=== PATIENT | female | born 1945 | race Caucasian/White ===

== ENCOUNTER 2017-10-06 19:12 | Emergency (ER) | payer OTHER ==
[~2017-10-06] VITALS: Ht 152.4 cm; Wt 72.6 kg
[~2017-10-06 19:12] MED LIST: ACYC400 PO; AMOCLA875 PO; ASCO500 PO; ASPI81CH PO; ASPI81EC PO; CARV6.25 PO; CHLO25B PO; CHLO500T PO; CHLOROTHALIDONE; CHOL10002 PO; CIPR500 PO; CLON.5 PO; CYCL10 PO; Coreg25 MG PO; DOCU100 PO; Diflucan100 MG PO; Diflucan150 MG PO; ERGO400 PO; FERR325 PO; FLUC100 PO; FLUC150A PO; FURO20 PO; HYDACE5 PO; HYDACE5325 PO; HYDHCL25 PO; IBUP800 PO; INSDET100 SC; INSULANPEN SC; IRON SULFATE; K-Dur20 MEQ PO; LOSA25; MAGCHL64ER PO; METF500 PO; METF850 PO; Macrobid 100 M100 MG PO; NAPR250 PO; NEUPRO; NYST100TC TOP; NYST100TO TOP; OMEP20ER; OMEP20ER PO; Omeprazole20 M1 PO; POTCHL10ER PO; POTCHL20ER PO; POTCIT5 PO; PRED10 PO; PRED20 PO; Prilosec Otc20 MG PO; RXCLIN PO; RXHYD5325 PO; RXHYDACE PO; RXSULTRIDS PO; SKIEMOTC TOP; SULTRIDS PO; TRAM50 PO; TRIHYD; TRIHYD PO; TRIHYD253A PO; VITAMIN D2000 UNIT PO; WARF3 PO; XARELTO15 MG PO; Zofran4 MG PO; [UNRECOGNIZED DRUG - CODE] PO; [UNRECOGNIZED DRUG - OTHER] VAG
[2017-10-06 19:52] LABS: BASOPHILS ABSOLUTE AUTO 0.03 K/mm3 (0.00-0.23); BASOPHILS PERCENT AUTO 0 % (0-2); EOSINOPHILS ABSOLUTE AUTO 0.36 K/mm3 (0.00-0.68); EOSINOPHILS PERCENT AUTO 4 % (0-6); Hematocrit 28.5 % (33.0-51.0); Hemoglobin 8.2 g/dL (11.5-16.0); IMMATURE GRAN ABSOLUTE AUTO 0.04 K/mm3 (0.00-0.10); IMMATURE GRAN PERCENT AUTO 0 % (0-1); LYMPHOCYTES PERCENT AUTO 13 % (21-46); MONOCYTES ABSOLUTE AUTO 0.84 K/mm3 (0.16-1.47); MONOCYTES PERCENT AUTO 9 % (4-13); Mean Corpuscular HGB 22.5 pg (26.0-34.0); Mean Corpuscular HGB Conc 28.8 g/dL (31.5-36.5); Mean Corpuscular Volume 78 fL (80-100); Mean Platelet Volume 9.2 fL (9.1-12.4); NEUTROPHILS ABSOLUTE AUTO 6.66 K/mm3 (1.96-9.15); NEUTROPHILS PERCENT AUTO 73 % (41-73); Platelet Count 450 K/mm3 (150-400); RDW Coefficient Variation 17.5 % (11.7-14.2); RDW Standard Deviation 50.2 fL (35.1-46.3); Red Blood Cell Count 3.64 M/mm3 (3.80-5.20); White Blood Cell Count 9.13 K/mm3 (4.00-11.30)
[2017-10-06 20:02] LABS: International Normalized Ratio 1.51; Prothrombin Time Results 15.9 Sec (9.7-11.5)
[2017-10-06 20:08] LABS: Alanine Aminotransfer (ALT/SGP 14 U/L (12-78); Albumin, Blood 3.2 g/dL (3.4-5.0); Albumin/Globulin Ratio 0.8 (0.8-1.8); Alk Phos 125 U/L (50-136); Anion Gap 9 mmol/L (6-16); Aspartate Aminotrans (AST/SGOT 15 U/L (12-37); Bilirubin, Total 0.3 mg/dL (0.1-1.0); Blood Urea Nitrogen 25 mg/dL (8-24); Bun/Creatinine Ratio 17.1 (12.0-20.0); CO2, Blood 28 mmol/L (21-32); Calcium, Blood 8.5 mg/dL (8.5-10.1); Chloride, Blood 103 mmol/L (98-108); Creatinine, Blood 1.46 mg/dL (0.40-1.00); Globulin, Blood 4.1 g/dL (2.2-4.0); Glomerular Filtration Rate 37 (60-); Glucose, Blood 192 mg/dL (70-99); Potassium, Blood 3.5 mmol/L (3.5-5.5); Sodium, Blood 140 mmol/L (136-145); Total Protein, Blood 7.3 g/dL (6.4-8.2); Troponin I <0.015 ng/mL (0.000-0.040)
[2018-01-17] MEDS ORDERED: FLUC150A PO (14:05)
[2018-01-17] MEDS ORDERED: DILT120 PO (14:06)
[2018-01-17] MEDS ORDERED: ELIQUIS5 MG PO (14:06)
[2018-08-23] MEDS ORDERED: Azor 10-20 MG1 EACH (20:57)
== END 2017-10-06 22:52 | disposition home or self-care (01) ==
LOC: ER 19:12
PROVIDERS: Emergency Medicine
DX: I48.0 Paroxysmal atrial fibrillation (principal); E11.9 Type 2 diabetes mellitus without complications; I10 Essential (primary) hypertension; Z96.642 Presence of left artificial hip joint; Z90.49 Acquired absence of other specified parts of digestive tract; Z90.710 Acquired absence of both cervix and uterus; Z90.89 Acquired absence of other organs; Z88.5 Allergy status to narcotic agent; Z88.2 Allergy status to sulfonamides; Z91.011 Allergy to milk products; Z79.899 Other long term (current) drug therapy; Z79.4 Long term (current) use of insulin; Z79.01 Long term (current) use of anticoagulants
CPT/HCPCS: 36415; 71046; 80053; 83880; 84484; 85025; 85610; 93005; 93010; 96361; 96374; 96376; 99284; J7030

== ENCOUNTER 2017-10-19 13:38 | Emergency (ER) | payer OTHER ==
[~2017-10-19] VITALS: Ht 152.4 cm; Wt 68.0 kg
[2017-10-19] MEDS ORDERED: CARV25 PO (14:19)
[2017-10-19] MEDS ORDERED: CALC.25 PO (14:20)
[2017-10-19] MEDS ORDERED: WARF3 PO (14:23)
[2017-10-19] MEDS ORDERED: WARF2 PO (14:24)
[2017-10-19 14:27] LABS: BASOPHILS PERCENT AUTO 0 % (0-2); EOSINOPHILS ABSOLUTE AUTO 0.04 K/mm3 (0.00-0.68); EOSINOPHILS PERCENT AUTO 1 % (0-6); Hematocrit 30.1 % (33.0-51.0); Hemoglobin 8.4 g/dL (11.5-16.0); IMMATURE GRAN ABSOLUTE AUTO 0.03 K/mm3 (0.00-0.10); IMMATURE GRAN PERCENT AUTO 1 % (0-1); LYMPHOCYTES ABSOLUTE AUTO 0.87 K/mm3 (0.84-5.20); LYMPHOCYTES PERCENT AUTO 14 % (21-46); MONOCYTES PERCENT AUTO 5 % (4-13); Mean Corpuscular HGB 21.3 pg (26.0-34.0); Mean Corpuscular HGB Conc 27.9 g/dL (31.5-36.5); Mean Corpuscular Volume 76 fL (80-100); Mean Platelet Volume 9.3 fL (9.1-12.4); NEUTROPHILS ABSOLUTE AUTO 5.01 K/mm3 (1.96-9.15); NEUTROPHILS PERCENT AUTO 80 % (41-73); Platelet Count 417 K/mm3 (150-400); RDW Coefficient Variation 17.8 % (11.7-14.2); RDW Standard Deviation 49.1 fL (35.1-46.3); Red Blood Cell Count 3.94 M/mm3 (3.80-5.20); White Blood Cell Count 6.25 K/mm3 (4.00-11.30)
[2017-10-19 14:45] LABS: Prothrombin Time Results 101.4 Sec (9.7-11.5); Troponin I <0.015 ng/mL (0.000-0.040)
[2017-10-19 14:47] LABS: Alanine Aminotransfer (ALT/SGP 22 U/L (12-78); Albumin, Blood 3.3 g/dL (3.4-5.0); Albumin/Globulin Ratio 0.8 (0.8-1.8); Alk Phos 96 U/L (50-136); Anion Gap 11 mmol/L (6-16); Aspartate Aminotrans (AST/SGOT 30 U/L (12-37); Bilirubin, Total 0.4 mg/dL (0.1-1.0); Blood Urea Nitrogen 21 mg/dL (8-24); CO2, Blood 25 mmol/L (21-32); Calcium, Blood 8.7 mg/dL (8.5-10.1); Chloride, Blood 106 mmol/L (98-108); Creatinine, Blood 1.62 mg/dL (0.40-1.00); Globulin, Blood 4.4 g/dL (2.2-4.0); Glomerular Filtration Rate 33 (60-); Glucose, Blood 138 mg/dL (70-99); Sodium, Blood 142 mmol/L (136-145); Total Protein, Blood 7.7 g/dL (6.4-8.2)
[2017-10-19 14:48] LABS: International Normalized Ratio 9.11
[2017-10-19 14:55] LABS: Influenza A Negative (NEGATIVE); Influenza B Negative (NEGATIVE)
[2017-10-19 16:05] LABS: Source, Urine Clean Catch
[2017-10-19 16:08] LABS: Appearance, Urine Clear (Clear); Bilirubin, Urine Neg (Neg); Blood, Urine 1+ (Neg); Color, Urine Yellow (P-Yellow); Glucose Qualitative, Urine Neg (Neg); Ketones, Urine Neg (Neg); Leukocyte Esterase, Urine 3+ (Neg); Nitrite, Urine Neg (Neg); Protein, Urine 1+ (Neg); Urobilinogen, Urine NORM (Normal)
[2017-10-19 16:18] LABS: Bacteria Rare /hpf; Red Blood Cells, Urine Not Seen /hpf (0-2); Squamous Epithelial Cells Rare /hpf (Few); White Blood Cells, Urine 0-2 /hpf (0-5)
[2018-01-17] MEDS ORDERED: FLUC150A PO (14:05)
[2018-01-17] MEDS ORDERED: DILT120 PO (14:06)
[2018-01-17] MEDS ORDERED: ELIQUIS5 MG PO (14:06)
[2018-08-23] MEDS ORDERED: Azor 10-20 MG1 EACH (20:57)
== END 2017-10-19 17:08 | disposition home or self-care (01) ==
LOC: ER 13:38
PROVIDERS: Physician Assistant
DX: R53.1 Weakness (principal); R79.1 Abnormal coagulation profile; E87.6 Hypokalemia; D64.9 Anemia, unspecified; Z88.5 Allergy status to narcotic agent; Z88.2 Allergy status to sulfonamides; Z91.011 Allergy to milk products; Z88.8 Allergy status to other drugs, medicaments and biological substances; Z79.899 Other long term (current) drug therapy; Z79.4 Long term (current) use of insulin; E11.9 Type 2 diabetes mellitus without complications; I10 Essential (primary) hypertension; I48.91 Unspecified atrial fibrillation; Z90.49 Acquired absence of other specified parts of digestive tract; Z90.710 Acquired absence of both cervix and uterus; Z87.891 Personal history of nicotine dependence
CPT/HCPCS: 36415; 71046; 73562-RT; 80053; 81001; 84484; 85025; 85610; 87077; 87086; 87186; 87804; 93005; 93010; 96360; 96361; 99284; J7030

== ENCOUNTER 2018-01-20 07:57 | Day surgery (SDC) | payer OTHER ==
[~2018-01-20] VITALS: Ht 152.4 cm; Wt 70.5 kg
[~2018-01-20 07:57] MED LIST changes: +CALC.25 PO; +CARV25 PO; +DILT120 PO; +ELIQUIS5 MG PO; +WARF2 PO
[2018-01-20] MEDS ORDERED: CARV25 PO (09:30)
[2018-01-20] MEDS ORDERED: Amiodarone HCl400 MG PO (09:41)
[2018-01-20] MEDS ORDERED: Amiodarone HCl200 MG PO (09:42)
== END 2018-01-20 23:22 | disposition home or self-care (01) ==
LOC: MHTC 07:57
PROC: 5A2204Z Restoration of Cardiac Rhythm, Single (ICD-10-PCS; principal; 2018-01-20)
DX: I48.1 Persistent atrial fibrillation (principal); R53.83 Other fatigue; R06.02 Shortness of breath; I48.0 Paroxysmal atrial fibrillation; E11.9 Type 2 diabetes mellitus without complications; E78.5 Hyperlipidemia, unspecified; I10 Essential (primary) hypertension; Z87.891 Personal history of nicotine dependence
CPT/HCPCS: 82947; 92960; 93005; 93010; 99152; 99153; J0282; J2250; J7120

== ENCOUNTER 2018-02-20 20:23 | Inpatient (IN) | payer OTHER ==
[~2018-02-20] VITALS: Ht 152.4 cm; Wt 74.0 kg
[~2018-02-20 20:23] MED LIST changes: +Amiodarone HCl200 MG PO; +Amiodarone HCl400 MG PO
[2018-02-20] MEDS ORDERED: INSULANPEN SC (21:01)
[2018-02-20 21:06] LABS: BASOPHILS ABSOLUTE AUTO 0.02 K/mm3 (0.00-0.23); BASOPHILS PERCENT AUTO 0 % (0-2); EOSINOPHILS ABSOLUTE AUTO 0.16 K/mm3 (0.00-0.68); EOSINOPHILS PERCENT AUTO 1 % (0-6); Hematocrit 25.6 % (33.0-51.0); Hemoglobin 7.2 g/dL (11.5-16.0); IMMATURE GRAN ABSOLUTE AUTO 0.09 K/mm3 (0.00-0.10); IMMATURE GRAN PERCENT AUTO 1 % (0-1); LYMPHOCYTES ABSOLUTE AUTO 0.59 K/mm3 (0.84-5.20); LYMPHOCYTES PERCENT AUTO 5 % (21-46); MONOCYTES ABSOLUTE AUTO 0.74 K/mm3 (0.16-1.47); MONOCYTES PERCENT AUTO 6 % (4-13); Mean Corpuscular HGB Conc 28.1 g/dL (31.5-36.5); Mean Corpuscular Volume 75 fL (80-100); Mean Platelet Volume 9.4 fL (9.1-12.4); NEUTROPHILS ABSOLUTE AUTO 11.37 K/mm3 (1.96-9.15); NEUTROPHILS PERCENT AUTO 88 % (41-73); Platelet Count 416 K/mm3 (150-400); RDW Coefficient Variation 16.6 % (11.7-14.2); RDW Standard Deviation 45.1 fL (35.1-46.3); Red Blood Cell Count 3.43 M/mm3 (3.80-5.20); White Blood Cell Count 12.97 K/mm3 (4.00-11.30)
[2018-02-20 21:23] LABS: Albumin, Blood 3.4 g/dL (3.4-5.0); Albumin/Globulin Ratio 0.8 (0.8-1.8); Bilirubin, Total 0.2 mg/dL (0.1-1.0); Bun/Creatinine Ratio 10.1 (12.0-20.0); Calcium, Blood 8.7 mg/dL (8.5-10.1); Creatinine, Blood 1.69 mg/dL (0.40-1.00); Globulin, Blood 4.5 g/dL (2.2-4.0); Potassium, Blood 4.3 mmol/L (3.5-5.5); Total Protein, Blood 7.9 g/dL (6.4-8.2)
[2018-02-21 01:40] LABS: Influenza A Negative (NEGATIVE); Influenza B Negative (NEGATIVE)
[2018-02-21 07:50] LABS: Hematocrit 25.7 % (33.0-51.0); Hemoglobin 7.5 g/dL (11.5-16.0); Mean Corpuscular HGB 22.3 pg (26.0-34.0); Mean Corpuscular HGB Conc 29.2 g/dL (31.5-36.5); Mean Corpuscular Volume 77 fL (80-100); Mean Platelet Volume 9.3 fL (9.1-12.4); Platelet Count 368 K/mm3 (150-400); RDW Standard Deviation 47.6 fL (35.1-46.3); Red Blood Cell Count 3.36 M/mm3 (3.80-5.20)
[2018-02-21 08:32] LABS: Albumin, Blood 2.8 g/dL (3.4-5.0); Albumin/Globulin Ratio 0.7 (0.8-1.8); Bilirubin, Total 0.8 mg/dL (0.1-1.0); Creatinine, Blood 1.63 mg/dL (0.40-1.00); Globulin, Blood 3.9 g/dL (2.2-4.0); Total Protein, Blood 6.7 g/dL (6.4-8.2)
[2018-02-21 21:34] LABS: Appearance, Urine Clear (Clear); Bilirubin, Urine Neg (Neg); Blood, Urine Neg (Neg); Color, Urine Yellow (P-Yellow); Glucose Qualitative, Urine Neg (Neg); Ketones, Urine Neg (Neg); Leukocyte Esterase, Urine Neg (Neg); Nitrite, Urine Neg (Neg); Protein, Urine 2+ (Neg); Urobilinogen, Urine NORM (Normal)
[2018-02-21 21:43] LABS: Bacteria Few /hpf; Red Blood Cells, Urine 0-2 /hpf (0-2); Squamous Epithelial Cells Rare /hpf (Few); White Blood Cells, Urine 0-2 /hpf (0-5)
[2018-02-22 05:40] LABS: BASOPHILS ABSOLUTE AUTO 0.04 K/mm3 (0.00-0.23); BASOPHILS PERCENT AUTO 0 % (0-2); EOSINOPHILS ABSOLUTE AUTO 0.47 K/mm3 (0.00-0.68); EOSINOPHILS PERCENT AUTO 4 % (0-6); Hemoglobin 6.7 g/dL (11.5-16.0); IMMATURE GRAN ABSOLUTE AUTO 0.07 K/mm3 (0.00-0.10); IMMATURE GRAN PERCENT AUTO 1 % (0-1); LYMPHOCYTES ABSOLUTE AUTO 1.26 K/mm3 (0.84-5.20); LYMPHOCYTES PERCENT AUTO 9 % (21-46); MONOCYTES ABSOLUTE AUTO 0.72 K/mm3 (0.16-1.47); MONOCYTES PERCENT AUTO 5 % (4-13); Mean Corpuscular HGB 21.3 pg (26.0-34.0); Mean Corpuscular HGB Conc 27.9 g/dL (31.5-36.5); Mean Corpuscular Volume 76 fL (80-100); Mean Platelet Volume 9.4 fL (9.1-12.4); NEUTROPHILS ABSOLUTE AUTO 10.82 K/mm3 (1.96-9.15); NEUTROPHILS PERCENT AUTO 81 % (41-73); Platelet Count 323 K/mm3 (150-400); RDW Coefficient Variation 17.3 % (11.7-14.2); RDW Standard Deviation 47.9 fL (35.1-46.3); Red Blood Cell Count 3.14 M/mm3 (3.80-5.20); White Blood Cell Count 13.38 K/mm3 (4.00-11.30)
[2018-02-22 06:17] LABS: Bun/Creatinine Ratio 10.7 (12.0-20.0); Calcium, Blood 8.1 mg/dL (8.5-10.1); Creatinine, Blood 1.78 mg/dL (0.40-1.00); Potassium, Blood 3.8 mmol/L (3.5-5.5)
[2018-02-22 06:19] LABS: Percent Saturation 3.7 % (15.0-50.0)
[2018-02-22 20:28] LABS: Hematocrit 31.5 % (33.0-51.0); Hemoglobin 9.6 g/dL (11.5-16.0)
[2018-02-23 05:56] LABS: BASOPHILS ABSOLUTE AUTO 0.03 K/mm3 (0.00-0.23); BASOPHILS PERCENT AUTO 0 % (0-2); EOSINOPHILS ABSOLUTE AUTO 0.23 K/mm3 (0.00-0.68); EOSINOPHILS PERCENT AUTO 2 % (0-6); Hematocrit 31.3 % (33.0-51.0); Hemoglobin 9.6 g/dL (11.5-16.0); IMMATURE GRAN ABSOLUTE AUTO 0.11 K/mm3 (0.00-0.10); IMMATURE GRAN PERCENT AUTO 1 % (0-1); LYMPHOCYTES ABSOLUTE AUTO 0.96 K/mm3 (0.84-5.20); LYMPHOCYTES PERCENT AUTO 9 % (21-46); MONOCYTES ABSOLUTE AUTO 0.69 K/mm3 (0.16-1.47); MONOCYTES PERCENT AUTO 6 % (4-13); Mean Corpuscular HGB Conc 30.7 g/dL (31.5-36.5); Mean Corpuscular Volume 78 fL (80-100); Mean Platelet Volume 9.6 fL (9.1-12.4); NEUTROPHILS PERCENT AUTO 82 % (41-73); Platelet Count 340 K/mm3 (150-400); RDW Coefficient Variation 18.2 % (11.7-14.2); RDW Standard Deviation 50.6 fL (35.1-46.3); White Blood Cell Count 11.02 K/mm3 (4.00-11.30)
[2018-02-23 06:16] LABS: Calcium, Blood 8.2 mg/dL (8.5-10.1); Creatinine, Blood 1.63 mg/dL (0.40-1.00); Potassium, Blood 3.8 mmol/L (3.5-5.5)
[2018-02-23] MEDS ORDERED: ACET325 PO (13:31)
[2018-02-23] MEDS ORDERED: ROBITUSSIN COU237 ML PO (13:33)
[2018-02-23] MEDS ORDERED: DOCU100 PO (13:34)
[2018-02-23] MEDS ORDERED: ACIDOPHILUS LA1 EACH PO (13:35)
== END 2018-02-23 14:02 | disposition home or self-care (01) | DRG 871 ==
LOC: ER 20:23 → MEDS 22:26 → ENPENDDIS 02-23 13:02 → MEDS 02-23 14:02
PROVIDERS: Emergency Medicine; Internal Medicine
PROC: 30233N1 Transfusion of Nonautologous Red Blood Cells into Peripheral Vein, Percutaneous Approach (ICD-10-PCS; principal; 2018-02-22)
DX: A41.9 Sepsis, unspecified organism (principal); J18.9 Pneumonia, unspecified organism; G93.40 Encephalopathy, unspecified; J44.1 Chronic obstructive pulmonary disease with (acute) exacerbation; I12.9 Hypertensive chronic kidney disease with stage 1 through stage 4 chronic kidney disease, or unspecified chronic kidney disease; E11.22 Type 2 diabetes mellitus with diabetic chronic kidney disease; N18.3 Chronic kidney disease, stage 3 (moderate); D63.1 Anemia in chronic kidney disease; I48.91 Unspecified atrial fibrillation; D50.8 Other iron deficiency anemias
CPT/HCPCS: 36415; 36430; 71046; 80048; 80053; 81001; 82728; 82947; 83540; 83550; 83605; 85014; 85018; 85025; 85027; 86850; 86900; 86901; 86923; 87493; 87804; 96365; 96368; 96375; 99285; J0456; J0696; J1650; J1815; J2405; J3370; J7030; J7050; P9016

== ENCOUNTER → 2019-04-29 | Outpatient (CLI) | payer OTHER ==
[~2019-04-29] MED LIST changes: +ACET325 PO; +ACIDOPHILUS LA1 EACH PO; +AMLO5 PO; +Acetaminophen325 M1 PO; +Azor 10-20 MG1 EACH PO; +LEVSOD50 PO; +Pepcid20 MG PO; +ROBITUSSIN COU237 ML PO; -VITAMIN D2000 UNIT PO; +VITAMIN D22000 UNIT PO
== END | disposition home or self-care (01) ==
LOC: LAB SHORT 18:19 → LAB EV 18:19
DX: L03.011 Cellulitis of right finger (principal)
CPT/HCPCS: 87070; 87205

== ENCOUNTER 2019-07-12 15:30 | Emergency (ER) | payer OTHER ==
[~2019-07-12] VITALS: Ht 152.4 cm; Wt 72.6 kg
[~2019-07-12 15:30] MED LIST changes: -LEVSOD50 PO; -Pepcid20 MG PO
[2019-07-12] MEDS ORDERED: LEVSOD50 PO (15:53)
[2019-07-12 16:03] LABS: BASOPHILS ABSOLUTE AUTO 0.04 K/mm3 (0.00-0.23); BASOPHILS PERCENT AUTO 0 % (0-2); EOSINOPHILS ABSOLUTE AUTO 0.36 K/mm3 (0.00-0.68); EOSINOPHILS PERCENT AUTO 4 % (0-6); Hematocrit 37.8 % (33.0-51.0); Hemoglobin 11.4 g/dL (11.5-16.0); IMMATURE GRAN ABSOLUTE AUTO 0.04 K/mm3 (0.00-0.10); IMMATURE GRAN PERCENT AUTO 0 % (0-1); LYMPHOCYTES ABSOLUTE AUTO 1.98 K/mm3 (0.84-5.20); LYMPHOCYTES PERCENT AUTO 20 % (21-46); MONOCYTES ABSOLUTE AUTO 0.91 K/mm3 (0.16-1.47); MONOCYTES PERCENT AUTO 9 % (4-13); Mean Corpuscular HGB 26.9 pg (26.0-34.0); Mean Corpuscular HGB Conc 30.2 g/dL (31.5-36.5); Mean Corpuscular Volume 89 fL (80-100); NEUTROPHILS ABSOLUTE AUTO 6.81 K/mm3 (1.96-9.15); NEUTROPHILS PERCENT AUTO 67 % (41-73); Platelet Count 360 K/mm3 (150-400); RDW Coefficient Variation 15.2 % (11.7-14.2); RDW Standard Deviation 49.2 fL (35.1-46.3); Red Blood Cell Count 4.24 M/mm3 (3.80-5.20); White Blood Cell Count 10.14 K/mm3 (4.00-11.30)
[2019-07-12 16:23] LABS: Alanine Aminotransfer (ALT/SGP 16 U/L (12-78); Albumin, Blood 3.6 g/dL (3.4-5.0); Albumin/Globulin Ratio 0.8 (0.8-1.8); Alk Phos 122 U/L (50-136); Anion Gap 7 mmol/L (6-16); Aspartate Aminotrans (AST/SGOT 15 U/L (12-37); Bilirubin, Total 0.2 mg/dL (0.1-1.0); Blood Urea Nitrogen 13 mg/dL (8-24); CO2, Blood 27 mmol/L (21-32); Calcium, Blood 8.7 mg/dL (8.5-10.1); Chloride, Blood 108 mmol/L (98-108); Creatinine, Blood 1.62 mg/dL (0.40-1.00); Globulin, Blood 4.6 g/dL (2.2-4.0); Glomerular Filtration Rate 33 (60-); Glucose, Blood 162 mg/dL (70-99); Potassium, Blood 3.9 mmol/L (3.5-5.5); Sodium, Blood 142 mmol/L (136-145); Total Protein, Blood 8.2 g/dL (6.4-8.2); Troponin I <0.015 ng/mL (0.000-0.040)
[2019-07-12 17:17] LABS: Magnesium, Blood 2.3 mg/dL (1.6-2.4)
[2019-07-12 17:18] LABS: Thyroid Stimulating Hormone 6.44 uIU/mL (0.360-4.800)
[2019-07-12] MEDS ORDERED: Pepcid20 MG PO (19:41)
== END 2019-07-12 19:55 | disposition home or self-care (01) ==
LOC: ER 15:30
PROVIDERS: Emergency Medicine; Physician Assistant
DX: I48.0 Paroxysmal atrial fibrillation (principal); J40 Bronchitis, not specified as acute or chronic; E11.9 Type 2 diabetes mellitus without complications; I10 Essential (primary) hypertension; Z88.5 Allergy status to narcotic agent; Z88.2 Allergy status to sulfonamides; Z91.018 Allergy to other foods; Z88.8 Allergy status to other drugs, medicaments and biological substances; Z79.899 Other long term (current) drug therapy; Z79.4 Long term (current) use of insulin; Z79.01 Long term (current) use of anticoagulants
CPT/HCPCS: 36415; 71045; 80053; 83735; 84443; 84484; 85025; 93005; 93010; 96361; 96365; 96366; 96375; 99285-25; J2060; J7030

== ENCOUNTER → 2020-01-24 | Outpatient (CLI) | payer MEDICARE ==
[~2020-01-24] MED LIST changes: +LEVSOD50 PO; +Pepcid20 MG PO
[2020-01-25 10:10] LABS: Candida species (DNA Probe) Negative (NEGATIVE); G. vaginalis (DNA Probe) Negative (NEGATIVE); T. vaginalis (DNA Probe) Negative (NEGATIVE)
== END | disposition home or self-care (01) ==
LOC: LAB 09:43 → LAB SHORT 09:43
PROVIDERS: Family Medicine
DX: R30.0 Dysuria (principal); L29.8 Other pruritus
CPT/HCPCS: 87086; 87480; 87510; 87660

== ENCOUNTER 2020-02-18 13:29 | Inpatient (IN) | payer MEDICARE ==
[~2020-02-18] VITALS: Ht 152.4 cm; Wt 76.9 kg
[~2020-02-18 13:29] MED LIST changes: -ELIQUIS5 MG PO; -VITAMIN D22000 UNIT PO
[2020-02-18 14:34] LABS: BASOPHILS ABSOLUTE AUTO 0.04 K/mm3 (0.00-0.23); BASOPHILS PERCENT AUTO 0 % (0-2); EOSINOPHILS ABSOLUTE AUTO 0.28 K/mm3 (0.00-0.68); EOSINOPHILS PERCENT AUTO 3 % (0-6); Hematocrit 30.1 % (33.0-51.0); Hemoglobin 8.4 g/dL (11.5-16.0); IMMATURE GRAN ABSOLUTE AUTO 0.05 K/mm3 (0.00-0.10); IMMATURE GRAN PERCENT AUTO 1 % (0-1); LYMPHOCYTES ABSOLUTE AUTO 1.26 K/mm3 (0.84-5.20); LYMPHOCYTES PERCENT AUTO 12 % (21-46); MONOCYTES ABSOLUTE AUTO 0.81 K/mm3 (0.16-1.47); MONOCYTES PERCENT AUTO 8 % (4-13); Mean Corpuscular HGB 22.3 pg (26.0-34.0); Mean Corpuscular HGB Conc 27.9 g/dL (31.5-36.5); Mean Corpuscular Volume 80 fL (80-100); Mean Platelet Volume 9.3 fL (9.1-12.4); NEUTROPHILS ABSOLUTE AUTO 7.75 K/mm3 (1.96-9.15); NEUTROPHILS PERCENT AUTO 76 % (41-73); Platelet Count 438 K/mm3 (150-400); RDW Standard Deviation 51.7 fL (35.1-46.3); Red Blood Cell Count 3.77 M/mm3 (3.80-5.20); White Blood Cell Count 10.19 K/mm3 (4.00-11.30)
[2020-02-18 14:53] LABS: Alanine Aminotransfer (ALT/SGP 19 U/L (12-78); Albumin, Blood 3.1 g/dL (3.4-5.0); Albumin/Globulin Ratio 0.7 (0.8-1.8); Alk Phos 116 U/L (50-136); Anion Gap 7 mmol/L (6-16); Aspartate Aminotrans (AST/SGOT 20 U/L (12-37); Bilirubin, Total 0.2 mg/dL (0.1-1.0); Blood Urea Nitrogen 22 mg/dL (8-24); Bun/Creatinine Ratio 13.8 (12.0-20.0); CO2, Blood 23 mmol/L (21-32); Calcium, Blood 8.7 mg/dL (8.5-10.1); Chloride, Blood 111 mmol/L (98-108); Creatinine, Blood 1.59 mg/dL (0.40-1.00); Globulin, Blood 4.6 g/dL (2.2-4.0); Glomerular Filtration Rate 34 (60-); Glucose, Blood 125 mg/dL (70-99); Potassium, Blood 3.9 mmol/L (3.5-5.5); Sodium, Blood 141 mmol/L (136-145); Total Protein, Blood 7.7 g/dL (6.4-8.2); Troponin I <0.015 ng/mL (0.000-0.040)
[2020-02-18] MEDS ORDERED: DILT120 PO (16:01)
[2020-02-18] MEDS ORDERED: MELO7.5 PO ×2 (16:02→16:56)
[2020-02-18] MEDS ORDERED: ELIQUIS5 MG PO (16:06)
[2020-02-18] MEDS ORDERED: VITAMIN D-32000 UNIT PO (16:07)
[2020-02-18] MEDS ORDERED: BASAGLAR K100 UNIT/2 SC (16:09)
[2020-02-18] MEDS ORDERED: TORSE20 PO (16:56)
--- NOTE | 2020-02-18 19:17 | NUR ---
PCU DAYSHIFT SUMMARY/ADMIT PATIENT ARRIVED TO UNIT AMBULATED TO UNIT BED WITH STEADY GAIT. RESP E/U ON ROOM AIR. PATIENT REMAINED IN AFIB 110'S WTIH CARDIEZEM GTT RUNNING AT 5 MG/ML. PATIENT REPORTS ONGOING IMPROVED CHEST PAIN, STATING 01/07. NO CARDIAC CHANGES PER DATA ENTRY CLERK. NO WOUNDS NOTED. REPORTED TO NOC SHIFT ELSIE MART.
[2020-02-18 20:25] LABS: Hematocrit 26.3 % (33.0-51.0); Hemoglobin 7.3 g/dL (11.5-16.0)
--- NOTE | 2020-02-18 21:30 | NUR ---
HGB LEVELS NURSE PRACTIONER YAMILE UPDATE ON PATIENT'S HGB LEVELS. ORDERS RECEIVED.
[2020-02-19 01:01] LABS: Hematocrit 25.7 % (33.0-51.0); Hemoglobin 7.1 g/dL (11.5-16.0)
--- NOTE | 2020-02-19 04:52 | NUR ---
UPDATE PATIENT COMPLAINING OF RESTLESS LEGS. DR GALLEGOS NOTIFIED AND ORDERS RECEIVED. DR GALLEGOS GAVE THE OKAY FOR THE MEDICATION TO BE STARTED AT THIS TIME EVEN THOUGH IT WAS ORDERED FOR BEDTIME.
[2020-02-19 05:45] LABS: Hematocrit 27.2 % (33.0-51.0); Hemoglobin 7.5 g/dL (11.5-16.0); Mean Corpuscular HGB 21.9 pg (26.0-34.0); Mean Corpuscular HGB Conc 27.6 g/dL (31.5-36.5); Mean Corpuscular Volume 80 fL (80-100); Mean Platelet Volume 9.4 fL (9.1-12.4); Platelet Count 413 K/mm3 (150-400); RDW Coefficient Variation 17.9 % (11.7-14.2); RDW Standard Deviation 51.7 fL (35.1-46.3); Red Blood Cell Count 3.42 M/mm3 (3.80-5.20); White Blood Cell Count 11.18 K/mm3 (4.00-11.30)
[2020-02-19 06:07] LABS: Anion Gap 8 mmol/L (6-16); Blood Urea Nitrogen 21 mg/dL (8-24); Bun/Creatinine Ratio 12.9 (12.0-20.0); CO2, Blood 21 mmol/L (21-32); Calcium, Blood 8.3 mg/dL (8.5-10.1); Chloride, Blood 110 mmol/L (98-108); Creatinine, Blood 1.63 mg/dL (0.40-1.00); Glomerular Filtration Rate 33 (60-); Glucose, Blood 115 mg/dL (70-99); Potassium, Blood 3.8 mmol/L (3.5-5.5); Sodium, Blood 139 mmol/L (136-145)
[2020-02-19 06:09] LABS: Troponin I <0.015 ng/mL (0.000-0.040)
--- NOTE | 2020-02-19 07:24 | NUR ---
SHIFT SUMMARY PATIENT PLEASENT AND COOPERATIVE THROUGHOUT THE NIGHT. PATIENT NAPPED OCCATIONALLY BUT WAS AWAKE MOST OF THE NIGHT. PATIENT REPORTED SHE IS A NIGHT OWL AND DOESNT USUALLY FALL ASLEEP UNTIL ABOUT 6 AM. PATIENT REPORTED SLIGHT CHEST PRESSURE THROUGHOUT THE NIGHT BUT NEVER REQUIRED MEDICATION FOR IT. CARDIZEM GTT RUNNING AT 5 MG/HR. PATIENT'S RESTLESS LEGS HAVE SETTLED DOWN AND PATIENT APPEARS TO BE ASLEEP. VITAL SIGNS CHARTED. REPORT GIVEN TO MADELIN ZIMMERMAN.
--- NOTE | 2020-02-19 07:58 | NUR ---
ASSUMED CARE AT 0700, REPORT FROM ELSIE MART. SITTING IN HOW FOWLERS IN BED. A/A/OX4, DENIES CHEST PAIN OR SOB, CARDIZEM DRIP INFUSING AT 5ML/HR. HEART RATE 104 AT THIS TIME. PLAN OF CARE FOR DAY REVIEWED, WILL CONTINUE TO MONITOR.
[2020-02-19 09:37] LABS: Hematocrit 26.1 % (33.0-51.0); Hemoglobin 7.2 g/dL (11.5-16.0)
--- NOTE | 2020-02-19 14:04 | NUR ---
Spiritual care visit conducted. Patient tells me about her heart issues and her bleed. Patient tells me abbout her family and her mario. Patient also talked about the of her 3years ago and the grief that she lives with today. I listen empathically, normalize patient's experience and provide grief support, pastoral school counselor and prayer. Patient responds well and displays evidence of being comforted and encouraged. I will continue to remain available to patient and family.
[2020-02-19 15:15] LABS: Hematocrit 30.8 % (33.0-51.0); Hemoglobin 8.8 g/dL (11.5-16.0)
[2020-02-19 17:47] LABS: Hemoglobin 9.4 g/dL (11.5-16.0)
--- NOTE | 2020-02-19 17:47 | NUR ---
SHIFT SUMMARY: A/A/OX4 DURING SHIFT. GI CONSULT TODAY. 1 UNIT PRBC GIVEN PER ORDERS WITH POST INFUSION HG 8.8. DENIES BLODDY STOOL. CARDIZEM DRIP DC'D PER ORDERS DURING SHIFT. IV TO LEFT WRIST AND RIGH AC PATENT AND SALINE LOCKED. INDEPENDANT IN ROOM, VSS, WILL CONTINUE TO MONITOR UNTIL CHANGE OF SHIFT.
--- NOTE | 2020-02-19 19:25 | NUR ---
ASSUMED CARE OF PT, BEDSIDE REPORT RECEIVED. PT IS RESTING QUIETLY ON RIGHT SIDE IN BED AND WATCHING TV. SHE DENIES N/V, DENIES CP/PRESSURE, DENIES SOB/DYSPNEA, DENIES PAIN. SHE IS SPEAKING IN FULL SENTENCES, SATS ARE MAINTAINING ON ROOM AIR, NO VISIBLE INCREASED WORK OF BREATHING, LUNGS ARE CLEAR. HR IRREG, AFIB PER CASE PLANNER, PRESSURES ARE MAINTAINING, RATE IS CONTROLLED TO 90S, SKIN IS PWD WITH BRISK CAP REFILL MILD LOWER EXTREMITY EDEMA NON PITTING. NORMOACTIVE BOWEL TONES X 4, ABD SOFT, NO TENDERNESS WITH PALPATION. PT IS HOPEFUL FOR DC TO HOME TOMORROW.
--- NOTE | 2020-02-20 05:58 | NUR ---
Pt rests quietly throughout shift, has denied needs throughout noc, is up ind in room and tolerates well. Vitals have been stable throughout noc. No acute changes.
--- NOTE | 2020-02-20 07:24 | NUR ---
ASSUMED CARE: PT RESTING QUIETLY AT THIS TIME. NO ACUTE DISTRESS NOTED.
[2020-02-20 08:49] LABS: Hematocrit 33.3 % (33.0-51.0); Hemoglobin 9.6 g/dL (11.5-16.0)
--- NOTE | 2020-02-20 08:54 | NUR ---
PT'S DAUGHTER CALLED AND STATES CONCERN THAT PT HAS NOT BEEN RECIEVING HOME MEDS. REVIEWED MED LIST WITH DAUGHTER AND EXPLAINED ANTIOCOAGULANT HELD DUE TO POSSIBLE GI BLEED. [facility] STATES PT HAS NOT USED METOPROLOL IN YEARS. CALL TO DR GARRIDO. MESSAGE LEFT. AWAITING CALL BACK
--- NOTE | 2020-02-20 09:50 | NUR ---
DR GARRIDO RETURNED CALL. SENIOR DATA INTEGRATION DEVELOPER SPOKE WITH HIM AND RELAYED TO THIS RN TO STILL GIVE METOPROLOL AND HE WOULD REVIEW THE [facility]
[2020-02-20] MEDS ORDERED: METO25ER PO (12:50)
[2020-02-20] MEDS ORDERED: PANT20 PO (12:51)
--- NOTE | 2020-02-20 14:52 | NUR ---
DISCUSSED DC INSTRUCTIONS WITH PT AND REMOVED IVS WNL. PT DECLINED FURTHER QUESTIONS OR CONCERNS. ESCORTED OUT AMBULATORY BY GEODESIST.
== END 2020-02-20 14:37 | disposition home or self-care (01) | DRG 310 ==
LOC: ER 13:29 → PCU 16:07
PROVIDERS: Emergency Medicine; Nurse Practitioner Acute Care; ADMIT Internal Medicine
PROC: 30233N1 Transfusion of Nonautologous Red Blood Cells into Peripheral Vein, Percutaneous Approach (ICD-10-PCS; principal; 2020-02-19)
DX: I48.0 Paroxysmal atrial fibrillation (principal); Z79.4 Long term (current) use of insulin; E11.22 Type 2 diabetes mellitus with diabetic chronic kidney disease; E78.5 Hyperlipidemia, unspecified; E04.1 Nontoxic single thyroid nodule; I12.9 Hypertensive chronic kidney disease with stage 1 through stage 4 chronic kidney disease, or unspecified chronic kidney disease; K21.9 Gastro-esophageal reflux disease without esophagitis; Z87.891 Personal history of nicotine dependence; Z96.642 Presence of left artificial hip joint; N18.3 Chronic kidney disease, stage 3 (moderate); D64.9 Anemia, unspecified; D50.9 Iron deficiency anemia, unspecified
CPT/HCPCS: 36415; 71046; 80048; 80053; 82947; 83690; 83880; 84484; 85014; 85018; 85025; 85027; 86850; 86900; 86901; 86923; 93005; 93010; 93306; 96374; 96375; 96376; 99285-25; A9270-GY; C9113; J7120; P9016

== ENCOUNTER → 2020-04-28 | Outpatient (CLI) | payer MEDICARE ==
[~2020-04-28] MED LIST changes: +BASAGLAR K100 UNIT/2 SC; +ELIQUIS5 MG PO; +MELO7.5 PO; +METO25ER PO; +PANT20 PO; +TORSE20 PO; +VITAMIN D-32000 UNIT PO
[2020-04-28 19:54] LABS: Percent Saturation 19.1 % (15.0-50.0)
== END | disposition home or self-care (01) ==
LOC: LAB SHORT 17:09 → LAB 17:09
PROVIDERS: Internal Medicine Hematology & Oncology
DX: D51.9 Vitamin B12 deficiency anemia, unspecified (principal); R53.83 Other fatigue
CPT/HCPCS: 82607; 82728; 82746; 83540; 83550

== ENCOUNTER → 2020-08-30 | Outpatient (CLI) | payer MEDICARE ==
[~2020-08-30] MED LIST changes: +BASAGLAR K100 UNIT/1 SC; +Cranberry300 MG PO; +DILTIAZEM 24HR360 MG PO; +PANT40 PO; +THERA-D2000 UNIT PO
[2020-08-30 18:56] LABS: BASOPHILS ABSOLUTE AUTO 0.03 K/mm3 (0.00-0.23); BASOPHILS PERCENT AUTO 0 % (0-2); EOSINOPHILS PERCENT AUTO 4 % (0-6); Hematocrit 28.8 % (33.0-51.0); IMMATURE GRAN ABSOLUTE AUTO 0.05 K/mm3 (0.00-0.10); IMMATURE GRAN PERCENT AUTO 1 % (0-1); LYMPHOCYTES ABSOLUTE AUTO 1.43 K/mm3 (0.84-5.20); LYMPHOCYTES PERCENT AUTO 15 % (21-46); MONOCYTES ABSOLUTE AUTO 0.81 K/mm3 (0.16-1.47); MONOCYTES PERCENT AUTO 9 % (4-13); Mean Corpuscular HGB 24.5 pg (26.0-34.0); Mean Corpuscular HGB Conc 27.8 g/dL (31.5-36.5); Mean Corpuscular Volume 88 fL (80-100); Mean Platelet Volume 10.7 fL (9.1-12.4); NEUTROPHILS ABSOLUTE AUTO 6.55 K/mm3 (1.96-9.15); NEUTROPHILS PERCENT AUTO 71 % (41-73); Platelet Count 400 K/mm3 (150-400); RDW Coefficient Variation 18.8 % (11.7-14.2); RDW Standard Deviation 61.7 fL (35.1-46.3); Red Blood Cell Count 3.27 M/mm3 (3.80-5.20); White Blood Cell Count 9.27 K/mm3 (4.00-11.30)
== END | disposition home or self-care (01) ==
LOC: LAB 18:33 → LAB SHORT 18:33
PROVIDERS: Internal Medicine Hematology & Oncology
DX: D50.9 Iron deficiency anemia, unspecified (principal)
CPT/HCPCS: 85025

== ENCOUNTER 2020-11-05 22:08 | Inpatient (IN) | payer MEDICARE ==
[~2020-11-05] VITALS: Ht 152.4 cm; Wt 70.1 kg
[~2020-11-05 22:08] MED LIST changes: -BASAGLAR K100 UNIT/1 SC; -Cranberry300 MG PO; -DILTIAZEM 24HR360 MG PO; -PANT40 PO; -THERA-D2000 UNIT PO
[2020-11-05] MEDS ORDERED: DILTIAZEM 24HR360 MG PO (22:17)
[2020-11-05] MEDS ORDERED: THERA-D2000 UNIT PO (22:18)
[2020-11-05] MEDS ORDERED: BASAGLAR K100 UNIT/1 SC (22:18)
[2020-11-05] MEDS ORDERED: ELIQUIS5 MG PO (22:19)
[2020-11-05] MEDS ORDERED: POTCHL20ER PO (22:19)
[2020-11-05 22:28] LABS: BASOPHILS ABSOLUTE AUTO 0.04 K/mm3 (0.00-0.23); BASOPHILS PERCENT AUTO 0 % (0-2); EOSINOPHILS ABSOLUTE AUTO 0.34 K/mm3 (0.00-0.68); EOSINOPHILS PERCENT AUTO 3 % (0-6); Hematocrit 24.8 % (33.0-51.0); Hemoglobin 6.7 g/dL (11.5-16.0); IMMATURE GRAN ABSOLUTE AUTO 0.07 K/mm3 (0.00-0.10); IMMATURE GRAN PERCENT AUTO 1 % (0-1); LYMPHOCYTES ABSOLUTE AUTO 1.52 K/mm3 (0.84-5.20); LYMPHOCYTES PERCENT AUTO 13 % (21-46); MONOCYTES ABSOLUTE AUTO 1.04 K/mm3 (0.16-1.47); MONOCYTES PERCENT AUTO 9 % (4-13); Mean Corpuscular HGB 21.1 pg (26.0-34.0); Mean Corpuscular Volume 78 fL (80-100); Mean Platelet Volume 9.6 fL (9.1-12.4); NEUTROPHILS ABSOLUTE AUTO 8.76 K/mm3 (1.96-9.15); NEUTROPHILS PERCENT AUTO 75 % (41-73); Platelet Count 454 K/mm3 (150-400); RDW Coefficient Variation 17.1 % (11.7-14.2); RDW Standard Deviation 48.9 fL (35.1-46.3); Red Blood Cell Count 3.18 M/mm3 (3.80-5.20); White Blood Cell Count 11.77 K/mm3 (4.00-11.30)
[2020-11-05 22:47] LABS: Alanine Aminotransfer (ALT/SGP 10 U/L (12-78); Albumin, Blood 3.3 g/dL (3.4-5.0); Albumin/Globulin Ratio 0.8 (0.8-1.8); Alk Phos 136 U/L (50-136); Anion Gap 6 mmol/L (6-16); Aspartate Aminotrans (AST/SGOT 9 U/L (12-37); Bilirubin, Total 0.2 mg/dL (0.1-1.0); Blood Urea Nitrogen 18 mg/dL (8-24); Bun/Creatinine Ratio 12.2 (12.0-20.0); CO2, Blood 26 mmol/L (21-32); Calcium, Blood 8.4 mg/dL (8.5-10.1); Chloride, Blood 111 mmol/L (98-108); Creatinine, Blood 1.47 mg/dL (0.40-1.00); Glomerular Filtration Rate 37 (60-); Glucose, Blood 153 mg/dL (70-99); Potassium, Blood 4.4 mmol/L (3.5-5.5); Sodium, Blood 143 mmol/L (136-145); Total Protein, Blood 7.3 g/dL (6.4-8.2); Troponin I <0.015 ng/mL (0.000-0.040)
[2020-11-05] MEDS ORDERED: Cranberry300 MG PO (23:19)
[2020-11-05 23:59] LABS: Influenza A, PCR NEGATIVE (NEGATIVE); Influenza B, PCR NEGATIVE (NEGATIVE); Resp Syncytial Virus, PCR NEGATIVE (NEGATIVE); SARS-Cov-2 (COVID-19) PCR, MMC NEGATIVE (NEGATIVE)
[2020-11-06 00:34] LABS: Source, Urine Clean Catch
[2020-11-06 00:37] LABS: Bilirubin, Urine Neg (Neg); Blood, Urine 1+ (Neg); Glucose Qualitative, Urine Neg (Neg); Ketones, Urine Neg (Neg); Leukocyte Esterase, Urine 3+ (Neg); Nitrite, Urine Neg (Neg); Protein, Urine 3+ (Neg); Specific Gravity, Urine 1.005 (1.003-1.022); Urobilinogen, Urine NORM (Normal)
[2020-11-06 00:40] LABS: Appearance, Urine Clear (Clear); Color, Urine Yellow (P-Yellow)
[2020-11-06 00:43] LABS: Bacteria Many /hpf; Red Blood Cells, Urine 0-2 /hpf (0-2); Squamous Epithelial Cells Mod /hpf (Few)
[2020-11-06 00:46] LABS: Percent Saturation 6.8 % (15.0-50.0)
[2020-11-06 04:49] LABS: BASOPHILS ABSOLUTE AUTO 0.05 K/mm3 (0.00-0.23); BASOPHILS PERCENT AUTO 1 % (0-2); EOSINOPHILS ABSOLUTE AUTO 0.32 K/mm3 (0.00-0.68); EOSINOPHILS PERCENT AUTO 3 % (0-6); Hematocrit 25.4 % (33.0-51.0); Hemoglobin 7.2 g/dL (11.5-16.0); IMMATURE GRAN ABSOLUTE AUTO 0.05 K/mm3 (0.00-0.10); IMMATURE GRAN PERCENT AUTO 1 % (0-1); LYMPHOCYTES ABSOLUTE AUTO 1.62 K/mm3 (0.84-5.20); LYMPHOCYTES PERCENT AUTO 16 % (21-46); MONOCYTES ABSOLUTE AUTO 0.87 K/mm3 (0.16-1.47); MONOCYTES PERCENT AUTO 9 % (4-13); Mean Corpuscular HGB 22.2 pg (26.0-34.0); Mean Corpuscular HGB Conc 28.3 g/dL (31.5-36.5); Mean Corpuscular Volume 78 fL (80-100); Mean Platelet Volume 9.9 fL (9.1-12.4); NEUTROPHILS ABSOLUTE AUTO 7.33 K/mm3 (1.96-9.15); NEUTROPHILS PERCENT AUTO 72 % (41-73); Platelet Count 383 K/mm3 (150-400); RDW Coefficient Variation 17.1 % (11.7-14.2); RDW Standard Deviation 48.5 fL (35.1-46.3); Red Blood Cell Count 3.24 M/mm3 (3.80-5.20); White Blood Cell Count 10.24 K/mm3 (4.00-11.30)
--- NOTE | 2020-11-06 05:08 | NUR ---
PATIENT ARRIVED TO ROOM VIA STRETCHER AND WAS A SBA TO BED. PATIENT IS A&OX4. 02 SATS 97% ON RA. PATIENT DENIES ANY CP/PRESSURE. PATIENT REQUESTED TO KEEP PANTS ON AND DENIED HAVING ANY PRESSURE ULCERS OR SORES. 1 UNIT PRBC COMPLETED AND FLUSHING WITH NS UPON ARRIVAL. PATIENT NOW SLEEPING. VSS, NO ACUTE CHANGES. CALL LIGHT IN REACH.
[2020-11-06 05:10] LABS: Albumin, Blood 2.9 g/dL (3.4-5.0); Anion Gap 6 mmol/L (6-16); Blood Urea Nitrogen 17 mg/dL (8-24); Bun/Creatinine Ratio 12.3 (12.0-20.0); CO2, Blood 26 mmol/L (21-32); Calcium, Blood 8.3 mg/dL (8.5-10.1); Chloride, Blood 113 mmol/L (98-108); Creatinine, Blood 1.38 mg/dL (0.40-1.00); Glomerular Filtration Rate 40 (60-); Glucose, Blood 120 mg/dL (70-99); Phosphorus, Blood 2.8 mg/dL (2.5-4.9); Potassium, Blood 4.1 mmol/L (3.5-5.5); Sodium, Blood 145 mmol/L (136-145); Troponin I <0.015 ng/mL (0.000-0.040)
--- NOTE | 2020-11-06 10:59 | NUR ---
PT LEAVING PCU AT 1055. REPORT GIVEN TO TRE MED-BUNDLE WRAPPER. PT DENYING CHEST PAIN THIS SHIFT, TELE DC'D PER ORDER.
[2020-11-06 11:07] LABS: Hematocrit 26.7 % (33.0-51.0); Hemoglobin 7.6 g/dL (11.5-16.0)
--- NOTE | 2020-11-06 15:39 | NUR ---
PT ARRIVED TO ROOM AT 1130 VIA WHEEL CHAIR. PT IS INDEPENDENT IN ROOM AND DOING WELL. PT AOX4 AND COOPERATIVE OF CARE. CALL LIGHT IS WITHIN REACH WILL CONTINUE TO MONITOR.
--- NOTE | 2020-11-06 17:35 | NUR ---
RECIEVED PT AT 1600. PT HAS NOT RESPONDED TO ANY STIMULUS OR CARE. PT IS TURNED EVERY 2 HRS. RECTAL TUBE REMOVED AND INTACT. PT IS ON RA AND LOOKS TO BE COMFORTABLE AT THIS TIME. WILL CONTIUE TO MONITOR.
--- NOTE | 2020-11-06 17:42 | NUR ---
PT AOX4 AND PT IS RESTING COMFORTABLY IN HER BED. PT HAS BEEN UP TO RESTROOM AND DID WELL AMBULATING. PT DENIES PAIN AT THIS TIME. CALL LIGHT IS WITHIN REACH. WILL CONTINUE TO MONITOR.
--- NOTE | 2020-11-06 18:38 | NUR ---
PT HAD EPISODE OF OF SOB INCREASED RESPIRATION OF 28 AND PT STATED SHE FELT LIKE HER HEART WAS RACING. PT HAD VITALS RECHECKED AND DR KEITH WAS NOTIFIED. DR KEITH ORDERED TELEMONITOR AND A TROPONIN TO BE DRAWN. WILL CONTINUE TO MONITOR.
--- NOTE | 2020-11-06 18:55 | NUR ---
ASSUMED CARE RECEIVED REPORT FROM ELSIE TOLEDO. PT RESTING COMFORTABLY, IN NO ACUTE DISTRESS. DENIES CP/PRESSURE/SOB AT THIS TIME, RESPS E/U. DENIES NEEDS. CALL LIGHT, POSSESSIONS IN REACH, BED IN LOW POSITION. CONTINUE TO MONITOR.
--- NOTE | 2020-11-07 04:11 | NUR ---
THIS RN NOTIFIED BY [employer] THAT PT CONVERTED FROM NSR INTO AFIB AT APPROXIMATELY 0345. RATE WELL CONTROLLED, AVERAGING IN THE 70S-80S, OCCASIONALLY INCREASING TO THE 90'S. PT HAS HX AFIB, NO ACUTE DISTRESS NOTED.
[2020-11-07 04:59] LABS: BASOPHILS ABSOLUTE AUTO 0.06 K/mm3 (0.00-0.23); BASOPHILS PERCENT AUTO 1 % (0-2); EOSINOPHILS ABSOLUTE AUTO 0.48 K/mm3 (0.00-0.68); EOSINOPHILS PERCENT AUTO 4 % (0-6); Hematocrit 26.5 % (33.0-51.0); Hemoglobin 7.4 g/dL (11.5-16.0); IMMATURE GRAN ABSOLUTE AUTO 0.08 K/mm3 (0.00-0.10); IMMATURE GRAN PERCENT AUTO 1 % (0-1); LYMPHOCYTES ABSOLUTE AUTO 1.51 K/mm3 (0.84-5.20); LYMPHOCYTES PERCENT AUTO 14 % (21-46); MONOCYTES ABSOLUTE AUTO 0.98 K/mm3 (0.16-1.47); MONOCYTES PERCENT AUTO 9 % (4-13); Mean Corpuscular HGB 21.8 pg (26.0-34.0); Mean Corpuscular HGB Conc 27.9 g/dL (31.5-36.5); Mean Corpuscular Volume 78 fL (80-100); Mean Platelet Volume 10.2 fL (9.1-12.4); NEUTROPHILS ABSOLUTE AUTO 7.71 K/mm3 (1.96-9.15); NEUTROPHILS PERCENT AUTO 71 % (41-73); Platelet Count 394 K/mm3 (150-400); RDW Coefficient Variation 17.2 % (11.7-14.2); RDW Standard Deviation 48.3 fL (35.1-46.3); White Blood Cell Count 10.82 K/mm3 (4.00-11.30)
--- NOTE | 2020-11-07 06:39 | NUR ---
SHIFT SUMMARY PT RESTING COMFORTABLY, IN NO ACUTE DISTRESS. VS REVIEWED, WNL. PT REMAINS IN AFIB, RATE WELL CONTROLLED. DENIES CP, PRESSURE, SOB. SLEPT T/O MUCH OF THE NIGHT. AMBULATED TO BATHROOM WITH FWW. DENIES NEEDS AT THIS TIME. CALL LIGHT, POSSESSIONS IN REACH, BED IN LOW POSITION, CONTINUE TO MONITOR, REPORT OFF TO DAY RN.
[2020-11-07] MEDS ORDERED: PANT40 PO (11:19)
--- NOTE | 2020-11-07 14:50 | NUR ---
PATIENT D/C'D TO HOME WITH FAMILY. RX MEDICATIONS CALLED TO [facility]. DC INSTRUCTIONS AND EDUCATION DISCUSSED WITH PATIENT AND COPY PROVIDED. FOLLOW UP APPT MADE. PATIENT INSTRUCTED TO GET LABS ON SATURDAY. PATIENT DENIES ANY FURTHER QUESTIONS OR CONCERNS.
== END 2020-11-07 14:35 | disposition home or self-care (01) | DRG 812 ==
LOC: ER 22:08 → PCU 22:09 → MEDS 11-06 11:00 → ENPENDDIS 11-07 11:46 → EDPENDDIS 11-07 11:46 → MEDS 11-07 14:35
PROVIDERS: Emergency Medicine; Internal Medicine; ADMIT Family Medicine
PROC: 30233N1 Transfusion of Nonautologous Red Blood Cells into Peripheral Vein, Percutaneous Approach (ICD-10-PCS; principal; 2020-11-06)
DX: D50.9 Iron deficiency anemia, unspecified (principal); Z20.822 Contact with and (suspected) exposure to COVID-19; I12.9 Hypertensive chronic kidney disease with stage 1 through stage 4 chronic kidney disease, or unspecified chronic kidney disease; E11.22 Type 2 diabetes mellitus with diabetic chronic kidney disease; N18.30 Chronic kidney disease, stage 3 unspecified; I48.0 Paroxysmal atrial fibrillation; M19.90 Unspecified osteoarthritis, unspecified site; E04.1 Nontoxic single thyroid nodule; E78.5 Hyperlipidemia, unspecified; K21.9 Gastro-esophageal reflux disease without esophagitis; E87.6 Hypokalemia; F17.200 Nicotine dependence, unspecified, uncomplicated; D72.829 Elevated white blood cell count, unspecified; D47.3 Essential (hemorrhagic) thrombocythemia; Z86.711 Personal history of pulmonary embolism; Z87.442 Personal history of urinary calculi; Z79.899 Other long term (current) drug therapy; Z79.01 Long term (current) use of anticoagulants; Z79.4 Long term (current) use of insulin; Z88.2 Allergy status to sulfonamides; Z88.5 Allergy status to narcotic agent; Z88.8 Allergy status to other drugs, medicaments and biological substances
CPT/HCPCS: 0241U; 36415; 36430; 71045; 80053; 80069; 81001; 82272; 82607; 82728; 82746; 82947; 83540; 83550; 83880; 84145; 84484; 85014; 85018; 85025; 86850; 86900; 86901; 86923; 87086; 93005; 93010; 99285-25; A9270; G0378; J2916; J7030; P9016

== ENCOUNTER → 2020-12-10 | Outpatient (CLI) | payer MEDICARE ==
[~2020-12-10] MED LIST changes: +BASAGLAR K100 UNIT/1 SC; +Cranberry300 MG PO; +DILTIAZEM 24HR360 MG PO; +PANT40 PO; +THERA-D2000 UNIT PO
[2020-12-10 16:49] LABS: Protein, Urine Quantitative 136.9 mg/dL (0.0-11.9)
== END ==
LOC: OLS 12:58 → LAB SHORT 12:58
PROVIDERS: Internal Medicine Nephrology
DX: N18.30 Chronic kidney disease, stage 3 unspecified (principal); D63.1 Anemia in chronic kidney disease; N25.81 Secondary hyperparathyroidism of renal origin; E55.9 Vitamin D deficiency, unspecified; E78.00 Pure hypercholesterolemia, unspecified; D51.8 Other vitamin B12 deficiency anemias; D52.8 Other folate deficiency anemias; D50.9 Iron deficiency anemia, unspecified; R76.9 Abnormal immunological finding in serum, unspecified; R94.5 Abnormal results of liver function studies; R94.6 Abnormal results of thyroid function studies
CPT/HCPCS: 81050; 82043; 82570; 84156

== ENCOUNTER 2021-02-28 19:52 | Emergency (ER) | payer MEDICARE ==
[~2021-02-28] VITALS: Ht 152.4 cm; Wt 68.0 kg
[2021-02-28 20:28] LABS: BASOPHILS ABSOLUTE AUTO 0.03 K/mm3 (0.00-0.23); BASOPHILS PERCENT AUTO 0 % (0-2); EOSINOPHILS ABSOLUTE AUTO 0.23 K/mm3 (0.00-0.68); EOSINOPHILS PERCENT AUTO 2 % (0-6); Hematocrit 43.2 % (33.0-51.0); IMMATURE GRAN ABSOLUTE AUTO 0.04 K/mm3 (0.00-0.10); IMMATURE GRAN PERCENT AUTO 0 % (0-1); LYMPHOCYTES ABSOLUTE AUTO 1.44 K/mm3 (0.84-5.20); LYMPHOCYTES PERCENT AUTO 13 % (21-46); MONOCYTES ABSOLUTE AUTO 1.03 K/mm3 (0.16-1.47); MONOCYTES PERCENT AUTO 9 % (4-13); Mean Corpuscular HGB 24.2 pg (26.0-34.0); Mean Corpuscular HGB Conc 30.1 g/dL (31.5-36.5); Mean Corpuscular Volume 80 fL (80-100); Mean Platelet Volume 9.4 fL (9.1-12.4); NEUTROPHILS ABSOLUTE AUTO 8.16 K/mm3 (1.96-9.15); NEUTROPHILS PERCENT AUTO 75 % (41-73); Platelet Count 399 K/mm3 (150-400); RDW Coefficient Variation 17.4 % (11.7-14.2); RDW Standard Deviation 50.4 fL (35.1-46.3); Red Blood Cell Count 5.38 M/mm3 (3.80-5.20); White Blood Cell Count 10.93 K/mm3 (4.00-11.30)
[2021-02-28 20:47] LABS: Alanine Aminotransfer (ALT/SGP 15 U/L (12-78); Albumin, Blood 3.7 g/dL (3.4-5.0); Albumin/Globulin Ratio 0.8 (0.8-1.8); Alk Phos 139 U/L (50-136); Anion Gap 6 mmol/L (6-16); Aspartate Aminotrans (AST/SGOT 19 U/L (12-37); Bilirubin, Total 0.3 mg/dL (0.1-1.0); Blood Urea Nitrogen 18 mg/dL (8-24); Bun/Creatinine Ratio 12.4 (12.0-20.0); CO2, Blood 26 mmol/L (21-32); Calcium, Blood 9.2 mg/dL (8.5-10.1); Chloride, Blood 104 mmol/L (98-108); Creatinine, Blood 1.45 mg/dL (0.40-1.00); Globulin, Blood 4.9 g/dL (2.2-4.0); Glomerular Filtration Rate 37 (60-); Glucose, Blood 130 mg/dL (70-99); Potassium, Blood 4.2 mmol/L (3.5-5.5); Sodium, Blood 136 mmol/L (136-145); Total Protein, Blood 8.6 g/dL (6.4-8.2); Troponin I <0.015 ng/mL (0.000-0.040)
== END 2021-03-01 01:45 | disposition home or self-care (01) ==
LOC: ER 19:52
PROVIDERS: Physician Assistant
DX: R07.9 Chest pain, unspecified (principal); K44.9 Diaphragmatic hernia without obstruction or gangrene; Z79.899 Other long term (current) drug therapy
CPT/HCPCS: 36415; 71046; 71275; 80053; 83690; 84484; 85025; 93005; 93010; 96374; 99285-25; J2405; J3010; J7030; Q9967

== ENCOUNTER → 2021-04-20 | Outpatient (CLI) | payer MEDICARE | END | disposition home or self-care (01) | LOC: LAB 08:56 | DX: N89.8 Other specified noninflammatory disorders of vagina (principal); R35.0 Frequency of micturition ==

== ENCOUNTER 2021-06-24 09:25 | Inpatient (IN) | payer MEDICARE ==
[~2021-06-24] VITALS: Ht 152.4 cm; Wt 72.1 kg
[2021-06-24] MEDS ORDERED: POTA8 (09:46)
[2021-06-24] MEDS ORDERED: THERA-D2000 UNIT PO (09:46)
[2021-06-24] MEDS ORDERED: INSULANI SC (09:46)
[2021-06-24 10:31] LABS: BASOPHILS ABSOLUTE AUTO 0.03 K/mm3 (0.00-0.23); BASOPHILS PERCENT AUTO 1 % (0-2); EOSINOPHILS ABSOLUTE AUTO 0.06 K/mm3 (0.00-0.68); EOSINOPHILS PERCENT AUTO 1 % (0-6); Hematocrit 35.2 % (33.0-51.0); Hemoglobin 10.6 g/dL (11.5-16.0); IMMATURE GRAN ABSOLUTE AUTO 0.03 K/mm3 (0.00-0.10); IMMATURE GRAN PERCENT AUTO 1 % (0-1); LYMPHOCYTES ABSOLUTE AUTO 0.61 K/mm3 (0.84-5.20); LYMPHOCYTES PERCENT AUTO 11 % (21-46); MONOCYTES ABSOLUTE AUTO 0.92 K/mm3 (0.16-1.47); MONOCYTES PERCENT AUTO 16 % (4-13); Mean Corpuscular HGB Conc 30.1 g/dL (31.5-36.5); Mean Corpuscular Volume 87 fL (80-100); Mean Platelet Volume 10.1 fL (9.1-12.4); NEUTROPHILS ABSOLUTE AUTO 4.15 K/mm3 (1.96-9.15); NEUTROPHILS PERCENT AUTO 72 % (41-73); Platelet Count 264 K/mm3 (150-400); RDW Coefficient Variation 16.4 % (11.7-14.2); RDW Standard Deviation 51.9 fL (35.1-46.3); Red Blood Cell Count 4.07 M/mm3 (3.80-5.20)
[2021-06-24 10:54] LABS: Alanine Aminotransfer (ALT/SGP 12 U/L (12-78); Albumin, Blood 2.9 g/dL (3.4-5.0); Albumin/Globulin Ratio 0.7 (0.8-1.8); Alk Phos 98 U/L (50-136); Anion Gap 6 mmol/L (6-16); Aspartate Aminotrans (AST/SGOT 17 U/L (12-37); Bilirubin, Total 0.3 mg/dL (0.1-1.0); Blood Urea Nitrogen 15 mg/dL (8-24); Bun/Creatinine Ratio 9.9 (12.0-20.0); CO2, Blood 23 mmol/L (21-32); Calcium, Blood 8.5 mg/dL (8.5-10.1); Chloride, Blood 109 mmol/L (98-108); Creatinine, Blood 1.51 mg/dL (0.40-1.00); Globulin, Blood 4.2 g/dL (2.2-4.0); Glomerular Filtration Rate 33 (60-); Glucose, Blood 109 mg/dL (70-99); Potassium, Blood 3.8 mmol/L (3.5-5.5); Sodium, Blood 138 mmol/L (136-145); Total Protein, Blood 7.1 g/dL (6.4-8.2); Troponin I <0.015 ng/mL (0.000-0.040)
[2021-06-24 11:26] LABS: Source, Urine Catheter
[2021-06-24 11:34] LABS: Appearance, Urine Clear (Clear); Bilirubin, Urine Neg (Neg); Blood, Urine Neg (Neg); Color, Urine Yellow (P-Yellow); Glucose Qualitative, Urine Neg (Neg); Ketones, Urine Neg (Neg); Leukocyte Esterase, Urine Neg (Neg); Nitrite, Urine Neg (Neg); Protein, Urine 4+ (Neg); Urobilinogen, Urine NORM (Normal)
[2021-06-24 11:59] LABS: Bacteria Many /hpf; Red Blood Cells, Urine 0-2 /hpf (0-2); Squamous Epithelial Cells Mod /hpf (Few)
[2021-06-24 12:00] LABS: Amorphous Light (0-Heavy)
[2021-06-24 14:35] LABS: SARS-Cov-2 (COVID-19) PCR, MMC POSITIVE (NEGATIVE)
--- NOTE | 2021-06-24 15:04 | NUR ---
per order lasix 40 mg iv one time
--- NOTE | 2021-06-24 17:00 | NUR ---
PATIENT ARRIVES TO ROOM AROUND 1550. ALERT. ORIENTED.AT HOME HAS HAD; SOB, FEVER, WEAKNESS, DECREASED APPETITE AND COUGH. RECEIVED J[employer] COVID VACCINE IN JANUARY. HX D.M., HTN AND AFIB. IV X 2 ONE LEFT HAND AND THE OTHER RT FA BOTH PATENT. UNLABORED RESPIRATIONS. PLEASANT. ABLE TO MAKE NEEDS KNOWN. WCTM
--- NOTE | 2021-06-24 20:22 | NUR ---
attempted to call md regarding temp and heart rate. answering machine full and will attempt again.
--- NOTE | 2021-06-24 20:37 | NUR ---
spoke with dr. Hernandez regarding cardiac consult for patient.
[2021-06-25 04:59] LABS: BASOPHILS ABSOLUTE AUTO 0.02 K/mm3 (0.00-0.23); BASOPHILS PERCENT AUTO 1 % (0-2); EOSINOPHILS ABSOLUTE AUTO 0.01 K/mm3 (0.00-0.68); EOSINOPHILS PERCENT AUTO 0 % (0-6); Hematocrit 37.5 % (33.0-51.0); Hemoglobin 11.5 g/dL (11.5-16.0); IMMATURE GRAN ABSOLUTE AUTO 0.01 K/mm3 (0.00-0.10); IMMATURE GRAN PERCENT AUTO 0 % (0-1); LYMPHOCYTES ABSOLUTE AUTO 0.75 K/mm3 (0.84-5.20); LYMPHOCYTES PERCENT AUTO 18 % (21-46); MONOCYTES ABSOLUTE AUTO 0.65 K/mm3 (0.16-1.47); MONOCYTES PERCENT AUTO 15 % (4-13); Mean Corpuscular HGB 26.2 pg (26.0-34.0); Mean Corpuscular HGB Conc 30.7 g/dL (31.5-36.5); Mean Corpuscular Volume 85 fL (80-100); Mean Platelet Volume 10.5 fL (9.1-12.4); NEUTROPHILS ABSOLUTE AUTO 2.77 K/mm3 (1.96-9.15); NEUTROPHILS PERCENT AUTO 66 % (41-73); Platelet Count 251 K/mm3 (150-400); RDW Coefficient Variation 16.3 % (11.7-14.2); RDW Standard Deviation 50.9 fL (35.1-46.3); Red Blood Cell Count 4.39 M/mm3 (3.80-5.20); White Blood Cell Count 4.21 K/mm3 (4.00-11.30)
[2021-06-25 05:41] LABS: Albumin, Blood 2.6 g/dL (3.4-5.0); Albumin/Globulin Ratio 0.6 (0.8-1.8); Bilirubin, Total 0.2 mg/dL (0.1-1.0); Calcium, Blood 8.2 mg/dL (8.5-10.1); Creatinine, Blood 1.63 mg/dL (0.40-1.00); Globulin, Blood 4.6 g/dL (2.2-4.0); Potassium, Blood 3.2 mmol/L (3.5-5.5); Total Protein, Blood 7.2 g/dL (6.4-8.2)
--- NOTE | 2021-06-25 05:51 | NUR ---
PATIENT SUMMARY PATIENT IS ALERT AND ORIENTED X4. PATIENT PLACED ON CRIMINAL INVESTIGATOR D/T INCREASE HR 120-130s, A FIB. PATIENT C/O SHORTNESS OF BREATH WITH EXCERTION. PATIENT ABLE TO GET OUT OF BED TO BEDSIDE COMMONDE WITHOUT ASSISTANCE. MEDICATIONS GIVEN ORDERED AND CARES COMPLETED ORDERED ACCORDING TO NURSING JUDGEMENT. ALL UNFINNISHED CARES ENDORSED TO ONCOMING RN. ENCOURAGED PATIENT TO INCREASE ACTIVITY TOLERATED.
--- NOTE | 2021-06-25 06:55 | NUR ---
AGILE PROJECT MANAGER CALLED AN AGILE PROJECT MANAGER AT 0634 FOR C/O 10/10 STABBING CP AND VOMITTED X1. HR A FIB 120S-130. O2 PLACED FOR COMFORT, EKG COMPLETED- A FIB 120S-130S MD VIN CALLED MEDS GIVEN ORDERED. WILL CONTINUE TO MONITOR AND ENDORSE TO ONCOMING RN.
--- NOTE | 2021-06-25 14:46 | NUR ---
NOTIFIED PATIENT WITH COUGH AND 2 X DIARRHEA. TESSALON PEARLES 100 TID AND PROBIOTIC BID.
--- NOTE | 2021-06-25 16:12 | NUR ---
echocardiogram complete
--- NOTE | 2021-06-25 18:29 | NUR ---
ALERT. ORIENTED. PATIENT DENIED ANY MORE CHEST PAIN OR DISCOMFORT AFTER EPISODE EARLY THIS A.M. LOOKED AT EKG. WAS IN AND WILL CHECK CHART. UNLABORED RESPIRATIONS. TELE HAS BEEN TRENDING 90'S TO LOW 100'S AFIB PER GUN PROFILER. IV'S X 2. OFF OXYGEN MID SHIFT AND SATS MID 90'S. [facility]
[2021-06-26 05:03] LABS: Hematocrit 37.9 % (33.0-51.0); Hemoglobin 11.2 g/dL (11.5-16.0); Mean Corpuscular HGB 25.7 pg (26.0-34.0); Mean Corpuscular HGB Conc 29.6 g/dL (31.5-36.5); Mean Corpuscular Volume 87 fL (80-100); Platelet Count 240 K/mm3 (150-400); RDW Coefficient Variation 16.2 % (11.7-14.2); RDW Standard Deviation 52.3 fL (35.1-46.3); Red Blood Cell Count 4.36 M/mm3 (3.80-5.20); White Blood Cell Count 5.97 K/mm3 (4.00-11.30)
[2021-06-26 05:21] LABS: Albumin, Blood 2.5 g/dL (3.4-5.0); Albumin/Globulin Ratio 0.5 (0.8-1.8); Bilirubin, Total 0.1 mg/dL (0.1-1.0); Bun/Creatinine Ratio 13.4 (12.0-20.0); C-REACTIVE PROTEIN, EXT RANGE 1.1 mg/dL (0.000-0.300); Calcium, Blood 8.2 mg/dL (8.5-10.1); Creatinine, Blood 1.86 mg/dL (0.40-1.00); Globulin, Blood 4.6 g/dL (2.2-4.0); Potassium, Blood 3.4 mmol/L (3.5-5.5); Total Protein, Blood 7.1 g/dL (6.4-8.2)
--- NOTE | 2021-06-26 06:08 | NUR ---
DISTRIBUTION FIELD TECHNICIAN SUMMARY ADMITTED FOR AFIB WITH RVR AND COVID. PT IS DNR. PT HAD NO CHEST PAIN THIS SHIFT. PT DID COMPLAIN OF SOME DIZZINESS AND "FEELING UNWELL". CBG HAD DROPPED AROUND 50 POINTS IN AN HOUR AND A HALF. PT GIVEN MADDISON CRACKERS AND PEANUT BUTTER WITH IMPROVEMENT AND STABILIZATION OF CBG. PT REPORTS THIS HAPPENS AT HOME, DROPPING SUGAR INTO THE 60S. PT MEDICATED X1 FOR FEVER OF 100.8 WITH IMPROVEMENT TO 99.8. NO OTHER CONCERNS THIS SHIFT.
--- NOTE | 2021-06-26 13:10 | NUR ---
Patient is lying in bed and resting but easily awakens to the sound of her name. She talks about her medical issues and the toll they take on her emotional state. She tells me about her daughter and the great support she is but also how anxious she is about her mom's health and not being able to see her because of the restrictions on visitors. Patient speaks of her strong Episcopalian mario and that prayer is very meaningful to her especially in times like these. I normalize patient's experience, reinforce helpful attitudes and practices, and provide therapeutic listening and prayer. Patient responds well and displays eviedence of an elevated mood. I will continue to remain available to patient and family.
--- NOTE | 2021-06-26 18:42 | NUR ---
PT PLEASANT TODYA. DID HAVE EMESIS ONCE TODAY. NO NEW CONCERNS NOTED. DID STATES FEEL SOME BETTER TODAY. NO NEW CONERNS NOTED TODAY. BED IN LOW POSITION, CALL LITE IN REACH, CALLS APPROP
[2021-06-27 04:54] LABS: Hematocrit 35.4 % (33.0-51.0); Hemoglobin 10.7 g/dL (11.5-16.0); Mean Corpuscular HGB 25.7 pg (26.0-34.0); Mean Corpuscular HGB Conc 30.2 g/dL (31.5-36.5); Mean Corpuscular Volume 85 fL (80-100); Mean Platelet Volume 10.1 fL (9.1-12.4); Platelet Count 229 K/mm3 (150-400); RDW Coefficient Variation 16.3 % (11.7-14.2); RDW Standard Deviation 50.6 fL (35.1-46.3); Red Blood Cell Count 4.17 M/mm3 (3.80-5.20); White Blood Cell Count 4.58 K/mm3 (4.00-11.30)
[2021-06-27 05:11] LABS: Bun/Creatinine Ratio 11.3 (12.0-20.0); Calcium, Blood 8.1 mg/dL (8.5-10.1); Creatinine, Blood 1.94 mg/dL (0.40-1.00); Potassium, Blood 3.3 mmol/L (3.5-5.5)
--- NOTE | 2021-06-27 05:15 | NUR ---
SHIFT SUMMARY AOX4. SLIGHT TEMP THIS AM @100.6, WILL OFFER TYLENOL & RECHECK. REST OF VITALS STABLE. TELE AFIB HR 70'S. DENIES PAIN, N/V OR SOB. SPO2 >90% ON RA. HAS DRY COUGH. CALL LIGHT IN REACH & PT WANTING TO DC HOME TODAY. WCTM.
--- NOTE | 2021-06-27 18:22 | NUR ---
PT IS ALERT AND ORIENTED X 3. DENIES PAIN. T - 100.2 TODAY BUT DECREASED WITHOUT INTERVENTION. SHE DOES NOT APPEAR TO BE IN ACUTE DISTRESS. SHE HAD AN UNEVENTFUL DAY. OOB TO COMMODE WITH STAND BY ASSIST.
--- NOTE | 2021-06-28 05:12 | NUR ---
SHIFT SUMMARY AOX4. PT HAS NO COMPLAINTS. DENIES N/V, SOB OR PAIN. PO TEMP 102.7 LAST NIGHT, GAVE TYLENOL, TEMP DECREASED TO 98.7. THIS AM PT HAD ANOTHER TEMP 102.7 PO. GAVE TYLENOL & WILL RECHECK. REST OF VITALS STABLE. TELE AFIB HR 90'S. CALL LIGHT IN REACH. WCTM.
[2021-06-28 05:23] LABS: BASOPHILS ABSOLUTE AUTO 0.02 K/mm3 (0.00-0.23); BASOPHILS PERCENT AUTO 1 % (0-2); EOSINOPHILS ABSOLUTE AUTO 0.01 K/mm3 (0.00-0.68); EOSINOPHILS PERCENT AUTO 0 % (0-6); Hematocrit 38.4 % (33.0-51.0); Hemoglobin 11.7 g/dL (11.5-16.0); IMMATURE GRAN ABSOLUTE AUTO 0.01 K/mm3 (0.00-0.10); IMMATURE GRAN PERCENT AUTO 0 % (0-1); LYMPHOCYTES ABSOLUTE AUTO 0.74 K/mm3 (0.84-5.20); LYMPHOCYTES PERCENT AUTO 18 % (21-46); MONOCYTES ABSOLUTE AUTO 0.47 K/mm3 (0.16-1.47); MONOCYTES PERCENT AUTO 11 % (4-13); Mean Corpuscular HGB 25.9 pg (26.0-34.0); Mean Corpuscular HGB Conc 30.5 g/dL (31.5-36.5); Mean Corpuscular Volume 85 fL (80-100); Mean Platelet Volume 9.9 fL (9.1-12.4); NEUTROPHILS PERCENT AUTO 70 % (41-73); Platelet Count 205 K/mm3 (150-400); RDW Coefficient Variation 16.2 % (11.7-14.2); RDW Standard Deviation 50.9 fL (35.1-46.3); Red Blood Cell Count 4.51 M/mm3 (3.80-5.20); White Blood Cell Count 4.15 K/mm3 (4.00-11.30)
[2021-06-28 05:51] LABS: Albumin, Blood 2.4 g/dL (3.4-5.0); Anion Gap 6 mmol/L (6-16); Blood Urea Nitrogen 21 mg/dL (8-24); Bun/Creatinine Ratio 12.5 (12.0-20.0); CO2, Blood 27 mmol/L (21-32); Calcium, Blood 8.3 mg/dL (8.5-10.1); Chloride, Blood 106 mmol/L (98-108); Creatinine, Blood 1.68 mg/dL (0.40-1.00); Glomerular Filtration Rate 30 (60-); Glucose, Blood 90 mg/dL (70-99); Phosphorus, Blood 2.8 mg/dL (2.5-4.9); Potassium, Blood 3.3 mmol/L (3.5-5.5); Sodium, Blood 139 mmol/L (136-145)
--- NOTE | 2021-06-28 15:45 | NUR ---
PATIENT IS ALERT AND ORIENTED. PLEASANT AND COOPERATIVE WITH STAFF. CONTINUES ON IV ABX WITHOUT S/SX OF ADVERSE REACTIONS NOTED OR REPORTED. PATIENT CONTINUES TO RUN ELEVATED FEVERS OF UNKNOWN ORIGIN; FEVERS TREATED WITH APAP PER EMAR. PATIENT IN INDEPENDENT TO BSC AND AMBULATES USING CANE. PATIENT RESTING IN ROOM AT THIS TIME. CALL LIGHT WITHIN REACH.
--- NOTE | 2021-06-28 15:46 | NUR ---
Pt presented laying in bed awake. Pt shared she was Zoroastrian and at times would pick pulling machine operator her family Bible and just read. I offered to read to pt while in the room and pt agreed. Pt also recieved a [employer] devotional. Pt shared she lost her a few years ago. Pt shared she has a daughter and is from [place]. Pt said the Lord's prayer with me outloud in room. Pt recieved prayer. Pt was not talkative unless you ask questions. Pt appeared comforted by spiritual interventions.
[2021-06-29 05:23] LABS: Hematocrit 36.6 % (33.0-51.0); Mean Corpuscular HGB 25.5 pg (26.0-34.0); Mean Corpuscular HGB Conc 30.1 g/dL (31.5-36.5); Mean Corpuscular Volume 85 fL (80-100); Mean Platelet Volume 10.4 fL (9.1-12.4); Platelet Count 200 K/mm3 (150-400); RDW Coefficient Variation 15.9 % (11.7-14.2); RDW Standard Deviation 49.7 fL (35.1-46.3); Red Blood Cell Count 4.32 M/mm3 (3.80-5.20); White Blood Cell Count 4.17 K/mm3 (4.00-11.30)
[2021-06-29 05:46] LABS: Albumin, Blood 2.4 g/dL (3.4-5.0); Anion Gap 6 mmol/L (6-16); Blood Urea Nitrogen 23 mg/dL (8-24); Bun/Creatinine Ratio 14.5 (12.0-20.0); CO2, Blood 27 mmol/L (21-32); Calcium, Blood 8.4 mg/dL (8.5-10.1); Chloride, Blood 106 mmol/L (98-108); Creatinine, Blood 1.59 mg/dL (0.40-1.00); Glomerular Filtration Rate 32 (60-); Glucose, Blood 100 mg/dL (70-99); Phosphorus, Blood 2.1 mg/dL (2.5-4.9); Potassium, Blood 3.4 mmol/L (3.5-5.5); Sodium, Blood 139 mmol/L (136-145)
--- NOTE | 2021-06-29 07:31 | NUR ---
PATIENT ALERT AND ORIENTED. INDEPENDED WITH BEDSIDE COMODE. PATIENT HAD A FEVER OF 101.8, PATIENT GOT TYLENOL 650MG WITH EFFECT PENDING. PATIENT MJ PAIN OR SOB. PATIENT ABLE TO MAKE HER NEEDS NON. WILL CONTINUE TO MONITOR.
--- NOTE | 2021-06-29 18:45 | NUR ---
PATIENT WAS DISCHARGED TO HOME. UPON DISCHARGE, SHE WAS ALERT AND ORIENTED X 3. DENIES PAIN AND WAS NOT IN ACUTE DISTRESS. SHE HAD AN UNEVENTFUL DAY. SHE DID NOT HAVE QUESTIONS AFTER REVIEWING DISCHARGE INSTRUCTIONS.
== END 2021-06-29 13:46 | disposition home or self-care (01) | DRG 177 ==
LOC: ER 09:25 → MEDS 09:26
PROVIDERS: Internal Medicine; Physician Assistant; ADMIT Hospitalist
PROC: 8E0ZXY6 Isolation (ICD-10-PCS; principal; 2021-06-25)
DX: U07.1 COVID-19 (principal); I50.31 Acute diastolic (congestive) heart failure; J12.82 Pneumonia due to coronavirus disease 2019; N17.9 Acute kidney failure, unspecified; I13.0 Hypertensive heart and chronic kidney disease with heart failure and stage 1 through stage 4 chronic kidney disease, or unspecified chronic kidney disease; I48.20 Chronic atrial fibrillation, unspecified; J98.11 Atelectasis; Z66 Do not resuscitate; N18.30 Chronic kidney disease, stage 3 unspecified; Z87.891 Personal history of nicotine dependence; E11.22 Type 2 diabetes mellitus with diabetic chronic kidney disease; E87.6 Hypokalemia; Z68.30 Body mass index [BMI] 30.0-30.9, adult; E83.39 Other disorders of phosphorus metabolism; Z79.01 Long term (current) use of anticoagulants; Z96.642 Presence of left artificial hip joint; Z90.49 Acquired absence of other specified parts of digestive tract; Z90.710 Acquired absence of both cervix and uterus; Z88.5 Allergy status to narcotic agent; Z88.2 Allergy status to sulfonamides; Z88.8 Allergy status to other drugs, medicaments and biological substances; Z79.899 Other long term (current) drug therapy; Z79.4 Long term (current) use of insulin; E66.9 Obesity, unspecified; E88.09 Other disorders of plasma-protein metabolism, not elsewhere classified
CPT/HCPCS: 36415; 71045; 80048; 80053; 80069; 81001; 82947; 83036; 83605; 83880; 84145; 84443; 84484; 85025; 85027; 85379; 85651; 86140; 87040; 87070; 87086; 87205; 93005; 93010; 93306; 96361; 96365; 96366; 96367; 96375; 96376; 97110; 97116; 97162; 97166; 97530; 97535; 99285-25; A9270; G0378; J0456; J0696; J1940; J3010; J7030; J7050; J7060; U0004

== ENCOUNTER 2021-09-28 22:47 | Inpatient (IN) | payer MEDICARE ==
[~2021-09-28] VITALS: Ht 152.4 cm; Wt 73.9 kg
[~2021-09-28 22:47] MED LIST changes: +INSULANI SC; +POTA8
[2021-09-28] MEDS ORDERED: ELIQUIS5 M2 PO (23:00)
[2021-09-28 23:39] LABS: BASOPHILS ABSOLUTE AUTO 0.03 K/mm3 (0.00-0.23); BASOPHILS PERCENT AUTO 0 % (0-2); EOSINOPHILS ABSOLUTE AUTO 0.36 K/mm3 (0.00-0.68); EOSINOPHILS PERCENT AUTO 4 % (0-6); Hematocrit 19.2 % (33.0-51.0); IMMATURE GRAN ABSOLUTE AUTO 0.05 K/mm3 (0.00-0.10); IMMATURE GRAN PERCENT AUTO 1 % (0-1); LYMPHOCYTES ABSOLUTE AUTO 1.08 K/mm3 (0.84-5.20); LYMPHOCYTES PERCENT AUTO 12 % (21-46); MONOCYTES ABSOLUTE AUTO 0.98 K/mm3 (0.16-1.47); MONOCYTES PERCENT AUTO 11 % (4-13); Mean Corpuscular HGB 24.1 pg (26.0-34.0); Mean Corpuscular HGB Conc 28.6 g/dL (31.5-36.5); Mean Corpuscular Volume 84 fL (80-100); Mean Platelet Volume 10.4 fL (9.1-12.4); NEUTROPHILS ABSOLUTE AUTO 6.77 K/mm3 (1.96-9.15); NEUTROPHILS PERCENT AUTO 73 % (41-73); NRBC ABSOLUTE 0.02 K/mm3 (0.00-0.02); NRBC Auto 0.2 /100 WBC (0.0-0.2); Platelet Count 328 K/mm3 (150-400); RDW Coefficient Variation 18.3 % (11.7-14.2); RDW Standard Deviation 55.9 fL (35.1-46.3); Red Blood Cell Count 2.28 M/mm3 (3.80-5.20); White Blood Cell Count 9.27 K/mm3 (4.00-11.30)
[2021-09-28 23:43] LABS: Hemoglobin 5.5 g/dL (11.5-16.0)
[2021-09-29 00:01] LABS: Albumin, Blood 2.7 g/dL (3.4-5.0); Albumin/Globulin Ratio 0.7 (0.8-1.8); Bilirubin, Total 0.2 mg/dL (0.1-1.0); Calcium, Blood 8.4 mg/dL (8.5-10.1); Creatinine, Blood 1.5 mg/dL (0.40-1.00); Globulin, Blood 3.8 g/dL (2.2-4.0); Potassium, Blood 4.1 mmol/L (3.5-5.5); Total Protein, Blood 6.5 g/dL (6.4-8.2); Troponin I 0.1 ng/mL (0.000-0.040)
[2021-09-29 04:18] LABS: Influenza A, PCR NEGATIVE (NEGATIVE); Influenza B, PCR NEGATIVE (NEGATIVE); Resp Syncytial Virus, PCR NEGATIVE (NEGATIVE); SARS-Cov-2 (COVID-19) PCR, MMC NEGATIVE (NEGATIVE)
--- NOTE | 2021-09-29 04:27 | NUR ---
ASSUMPTION OF CARE PT ARRIVED TO ICU FROM ER, TRANSFERRED TO ICU BED VIA SLIDER. PT ALERT AND ORIENTED, DENIES CP, C/O SOB WITH EXERTION. COVID SWAB OBTAINED AND SENT TO LAB. DENIES ABDOMINAL PAIN, STATES SHE HAD A NORMAL BM YESTERDAY, NO SIGNS OF BLEEDING IN STOOL PER PATIENT. FIRST UNIT OF BLOOD INFUSING IN 20GA IV IN LAC UPON ARRIVAL, PT C/O PAIN AT THE IV SITE. TRANSFUSION PLACED ON STANDBY WHILE THIS NURSE AND VEL ATTEMPTED TO OBTAIN AN IV. UNSUCCESSFUL WITH IV INSERTION. ER PHYSICIAN CALLED FOR CENTRAL LINE PLACEMENT, DENIED DUE TO PATIENT LOAD. DR. BARAJAS CALLED AND IS ENROUTE TO ESTABLISH CENTRAL LINE FOR BLOOD ADMINSTRATION. VSS, CALL LIGHT IN REACH. WILL CONTINUE TRANSFUSION WHEN VENOUS ACCESS IS ESTABLISHED.
[2021-09-29 10:45] LABS: Hematocrit 24.6 % (33.0-51.0); Hemoglobin 7.4 g/dL (11.5-16.0)
[2021-09-29 16:25] LABS: Hematocrit 24.2 % (33.0-51.0); Hemoglobin 7.4 g/dL (11.5-16.0)
--- NOTE | 2021-09-29 17:04 | NUR ---
SHIFT SUMMARY NO ACUTE CHANGES THIS SHIFT. PT HAS REMAINED AWAKE, ALERT, AND ORIENTED THIS SHIFT. PT WITH PERIODIC NAPS THROUGHOUT THE AFTERNOON. PT HAS DENIED PAIN OR DISCOMFORT, DIZZINESS, OR LIGHTHEADEDNESS. VITAL SIGNS HAVE REMAINED STABLE. CENTRAL LINE TO R IJ C/D/I, SALINE LOCKED. PT UP TO BEDSIDE COMMODE TO VOID MULTIPLE TIMES THIS SHIFT. NO SIGNS OF GI BLEEDING NOTED. AWAITING BED ASSIGNMENT FOR TRANSFER AT [facility] IN [place]. WILL CONTINUE TO MONITOR AND REPORT OFF TO ONCOMING RN.
[2021-09-29 19:51] LABS: Hematocrit 24.1 % (33.0-51.0); Hemoglobin 7.4 g/dL (11.5-16.0)
--- NOTE | 2021-09-29 22:06 | NUR ---
SHIFT ASSESSMENT ASSUMED CARE OF PT @ 1900. PT ALERT AND ORIENTED X 4. FOLLOWING ALL COMMANDS. AMBULATES TO BEDSIDE COMMODE WITH ASSISTANCE, DOES BECOME SHORT OF BREATH UPON EXERTION. NO SIGNS OF GI BLEEDING, DENIES ABDOMINAL PAIN, DIZZINESS, CHEST PAIN. VSS. REPEAT LABS DRAWN, H&H STABLE. TROPONIN TRENDING DOWN. CALL LIGHT IN REACH, WILL CONTINUE TO MONITOR CLOSELY.
[2021-09-30 02:22] LABS: Hematocrit 23.2 % (33.0-51.0); Hemoglobin 7.2 g/dL (11.5-16.0)
--- NOTE | 2021-09-30 06:26 | NUR ---
SHIFT SUMMARY PT HAD AN UNEVENTFUL NIGHT. ABLE TO SLEEP FOR MOST OF THE NIGHT. CONTINUES TO DENY ABD PAIN, CP, OR SOB AT REST. NO OBVIOUS SIGNS OF GI BLEED. PT STATES SHE IS LESS SHORT OF BREATH WHEN GOING TO BEDSIDE COMMODE BUT CONTINUES TO TAKE A FEW MINUTES TO REGAIN COMPOSURE AFTER AMBULATING. TROPONIN CONTINUES TO TREND DOWN. HGB DOWN FROM (7.4)-(7.2). WILL CONTINUE TO MONITOR.
[2021-09-30] MEDS ORDERED: PANT40 PO (15:20)
--- NOTE | 2021-09-30 16:57 | NUR ---
SHIFT SUMMARY; ASSUMED CARE AT 0700, A/A/OX4 DURING SHIFT. INDEPENDANT IN ROOM. NO RECTAL BLEEDING DURING NOC PER RADIOLOGY ORDERLY RN. NO BLEEDING ON DAY SHIFT. DISCHARGE DISCUSSED BY MD WITH FOLLOW UP RECOMMENDATIONS. VERBAL AND WRITTEN INSTRUCTIONS GIVEN WITH CLEAR UNDERSTANDING. RX FAXED TO [facility]. DC'D HOME WITH DAUGHTER.
== END 2021-09-30 16:12 | disposition home or self-care (01) | DRG 377 ==
LOC: ER 22:47 → ICUW 09-29 01:44
PROVIDERS: Emergency Medicine; Family Medicine; ADMIT Internal Medicine
PROC: 30233N1 Transfusion of Nonautologous Red Blood Cells into Peripheral Vein, Percutaneous Approach (ICD-10-PCS; principal; 2021-09-29)
DX: K92.1 Melena (principal); I21.A1 Myocardial infarction type 2; D62 Acute posthemorrhagic anemia; I48.20 Chronic atrial fibrillation, unspecified; Z66 Do not resuscitate; D63.1 Anemia in chronic kidney disease; E11.22 Type 2 diabetes mellitus with diabetic chronic kidney disease; Z20.822 Contact with and (suspected) exposure to COVID-19; N18.30 Chronic kidney disease, stage 3 unspecified; I12.9 Hypertensive chronic kidney disease with stage 1 through stage 4 chronic kidney disease, or unspecified chronic kidney disease; Z96.642 Presence of left artificial hip joint; Z88.5 Allergy status to narcotic agent; Z88.2 Allergy status to sulfonamides; Z88.8 Allergy status to other drugs, medicaments and biological substances; Z91.011 Allergy to milk products; Z90.49 Acquired absence of other specified parts of digestive tract; Z90.89 Acquired absence of other organs; Z90.710 Acquired absence of both cervix and uterus; Z79.01 Long term (current) use of anticoagulants; Z79.899 Other long term (current) drug therapy
CPT/HCPCS: 0241U; 36415; 36430; 36556; 71045; 80053; 82272; 84484; 85014; 85018; 85025; 86850; 86900; 86901; 86923; 93005; 93010; 96374; 99285-25; A9270; C1751; C9113; J2250; J7030; P9016

== ENCOUNTER 2021-12-08 08:39 | Day surgery (SDC) | payer MEDICARE ==
[~2021-12-08] VITALS: Ht 152.4 cm; Wt 69.7 kg
[~2021-12-08 08:39] MED LIST changes: +ELIQUIS5 M2 PO
[2021-12-08] MEDS ORDERED: METOPROLOL SUCC25 MG (09:16)
[2021-12-08] MEDS ORDERED: DILT120 (09:17)
[2022-02-09] MEDS ORDERED: METO100ER PO (16:54)
[2022-02-09] MEDS ORDERED: Imdur30 MG PO (16:55)
[2022-02-09] MEDS ORDERED: AMLO5 PO (16:55)
[2022-02-10] MEDS ORDERED: POTA8 PO (18:23)
== END 2021-12-08 11:58 | disposition home or self-care (01) ==
LOC: ORSCSDS 08:39
PROVIDERS: Internal Medicine Gastroenterology
PROC: 0DBA8ZX Excision of Jejunum, Via Natural or Artificial Opening Endoscopic, Diagnostic (ICD-10-PCS; principal; 2021-12-08 10:00)
PROC: 0D758ZZ Dilation of Esophagus, Via Natural or Artificial Opening Endoscopic (ICD-10-PCS; principal; 2021-12-08 10:00)
PROC: 0DB68ZX Excision of Stomach, Via Natural or Artificial Opening Endoscopic, Diagnostic (ICD-10-PCS; principal; 2021-12-08 10:00)
PROC: 0DB98ZX Excision of Duodenum, Via Natural or Artificial Opening Endoscopic, Diagnostic (ICD-10-PCS; principal; 2021-12-08 10:00)
DX: D50.9 Iron deficiency anemia, unspecified (principal); K92.1 Melena; K29.80 Duodenitis without bleeding; R63.4 Abnormal weight loss; K29.70 Gastritis, unspecified, without bleeding; K20.80 Other esophagitis without bleeding; K21.9 Gastro-esophageal reflux disease without esophagitis; Z86.711 Personal history of pulmonary embolism; I10 Essential (primary) hypertension; R09.02 Hypoxemia; K22.89 Other specified disease of esophagus; I48.91 Unspecified atrial fibrillation; E11.9 Type 2 diabetes mellitus without complications; Z87.891 Personal history of nicotine dependence; E66.9 Obesity, unspecified; Z68.33 Body mass index [BMI] 33.0-33.9, adult; K44.9 Diaphragmatic hernia without obstruction or gangrene; Z79.899 Other long term (current) drug therapy
CPT/HCPCS: 82947; 88305; 88341; 88342; C1726; J2704; J7120

== ENCOUNTER 2022-01-04 02:48 | Emergency (ER) | payer MEDICARE ==
[~2022-01-04] VITALS: Ht 152.4 cm; Wt 68.0 kg
[~2022-01-04 02:48] MED LIST changes: +DILT120; +METOPROLOL SUCC25 MG
[2022-01-04] MEDS ORDERED: DILTIAZEM 24HR240 M3 PO (03:11)
[2022-01-04 03:46] LABS: BASOPHILS ABSOLUTE AUTO 0.03 K/mm3 (0.00-0.23); BASOPHILS PERCENT AUTO 0 % (0-2); EOSINOPHILS ABSOLUTE AUTO 0.57 K/mm3 (0.00-0.68); EOSINOPHILS PERCENT AUTO 7 % (0-6); Hematocrit 25.5 % (33.0-51.0); IMMATURE GRAN ABSOLUTE AUTO 0.04 K/mm3 (0.00-0.10); IMMATURE GRAN PERCENT AUTO 1 % (0-1); LYMPHOCYTES ABSOLUTE AUTO 1.52 K/mm3 (0.84-5.20); LYMPHOCYTES PERCENT AUTO 18 % (21-46); MONOCYTES ABSOLUTE AUTO 1.16 K/mm3 (0.16-1.47); MONOCYTES PERCENT AUTO 14 % (4-13); Mean Corpuscular HGB Conc 27.5 g/dL (31.5-36.5); Mean Corpuscular Volume 76 fL (80-100); NEUTROPHILS ABSOLUTE AUTO 5.29 K/mm3 (1.96-9.15); NEUTROPHILS PERCENT AUTO 61 % (41-73); Platelet Count 311 K/mm3 (150-400); RDW Standard Deviation 53.3 fL (35.1-46.3); Red Blood Cell Count 3.34 M/mm3 (3.80-5.20); White Blood Cell Count 8.61 K/mm3 (4.00-11.30)
[2022-01-04 04:06] LABS: Albumin, Blood 3.2 g/dL (3.4-5.0); Albumin/Globulin Ratio 0.8 (0.8-1.8); Bilirubin, Total 0.3 mg/dL (0.1-1.0); Bun/Creatinine Ratio 14.7 (12.0-20.0); Calcium, Blood 8.4 mg/dL (8.5-10.1); Creatinine, Blood 1.77 mg/dL (0.40-1.00); Globulin, Blood 4.2 g/dL (2.2-4.0); Magnesium, Blood 2.3 mg/dL (1.6-2.4); Total Protein, Blood 7.4 g/dL (6.4-8.2)
[2022-01-04] MEDS ORDERED: FURO20 PO (06:36)
[2022-02-09] MEDS ORDERED: METO100ER PO (16:54)
[2022-02-09] MEDS ORDERED: AMLO5 PO (16:55)
[2022-02-09] MEDS ORDERED: Imdur30 MG PO (16:55)
[2022-02-10] MEDS ORDERED: POTA8 PO (18:23)
== END 2022-01-04 06:48 | disposition home or self-care (01) ==
LOC: ER 02:48
PROVIDERS: Student in an Organized Health Care Education/Training Program
DX: I48.91 Unspecified atrial fibrillation (principal); I11.0 Hypertensive heart disease with heart failure; I50.9 Heart failure, unspecified; E11.9 Type 2 diabetes mellitus without complications; Z87.891 Personal history of nicotine dependence; Z79.899 Other long term (current) drug therapy; Z88.2 Allergy status to sulfonamides
CPT/HCPCS: 71046; 80053; 83735; 83880; 84484; 85025; 93005; 93010; 96365; 96375; 99285-25; A9270; J1940; J3475

== ENCOUNTER 2022-07-01 22:39 | Emergency (ER) | payer MEDICARE ==
[~2022-07-01] VITALS: Ht 152.4 cm; Wt 67.1 kg
[~2022-07-01 22:39] MED LIST changes: +DILTIAZEM 24HR240 M3 PO; +Imdur30 MG PO; +METO100ER PO; +POTA8 PO
[2022-07-02 00:40] LABS: BASOPHILS ABSOLUTE AUTO 0.04 K/mm3 (0.00-0.23); BASOPHILS PERCENT AUTO 0 % (0-2); EOSINOPHILS PERCENT AUTO 3 % (0-6); Hematocrit 32.5 % (33.0-51.0); Hemoglobin 9.7 g/dL (11.5-16.0); IMMATURE GRAN ABSOLUTE AUTO 0.05 K/mm3 (0.00-0.10); IMMATURE GRAN PERCENT AUTO 1 % (0-1); LYMPHOCYTES ABSOLUTE AUTO 1.49 K/mm3 (0.84-5.20); LYMPHOCYTES PERCENT AUTO 15 % (21-46); MONOCYTES ABSOLUTE AUTO 0.86 K/mm3 (0.16-1.47); MONOCYTES PERCENT AUTO 9 % (4-13); Mean Corpuscular HGB 24.1 pg (26.0-34.0); Mean Corpuscular HGB Conc 29.8 g/dL (31.5-36.5); Mean Corpuscular Volume 81 fL (80-100); Mean Platelet Volume 10.4 fL (9.1-12.4); NEUTROPHILS ABSOLUTE AUTO 7.08 K/mm3 (1.96-9.15); NEUTROPHILS PERCENT AUTO 72 % (41-73); Platelet Count 293 K/mm3 (150-400); RDW Coefficient Variation 15.7 % (11.7-14.2); Red Blood Cell Count 4.02 M/mm3 (3.80-5.20); White Blood Cell Count 9.82 K/mm3 (4.00-11.30)
[2022-07-02 01:02] LABS: Albumin/Globulin Ratio 0.7 (0.8-1.8); Bilirubin, Total 0.2 mg/dL (0.1-1.0); Bun/Creatinine Ratio 13.6 (12.0-20.0); Calcium, Blood 9.5 mg/dL (8.5-10.1); Creatinine, Blood 1.77 mg/dL (0.40-1.00); Globulin, Blood 4.5 g/dL (2.2-4.0); Potassium, Blood 3.4 mmol/L (3.5-5.5); Total Protein, Blood 7.5 g/dL (6.4-8.2)
== END 2022-07-02 02:00 | disposition home or self-care (01) ==
LOC: ER 22:39
PROVIDERS: Emergency Medicine
DX: R42 Dizziness and giddiness (principal); E11.9 Type 2 diabetes mellitus without complications; I10 Essential (primary) hypertension; I48.91 Unspecified atrial fibrillation; Z87.891 Personal history of nicotine dependence; Z88.2 Allergy status to sulfonamides; Z88.5 Allergy status to narcotic agent; Z91.048 Other nonmedicinal substance allergy status; Z79.899 Other long term (current) drug therapy; Z79.4 Long term (current) use of insulin
CPT/HCPCS: 36415; 80053; 83690; 84484; 85025; 93005; 93010; 96374; 99284-25; A9270; J2405; J7030

== ENCOUNTER 2022-12-03 21:34 | Inpatient (IN) | payer MEDICARE ==
[~2022-12-03] VITALS: Ht 152.4 cm; Wt 70.3 kg
[2022-12-03 22:04] LABS: BASOPHILS ABSOLUTE AUTO 0.03 K/mm3 (0.00-0.23); BASOPHILS PERCENT AUTO 0 % (0-2); EOSINOPHILS ABSOLUTE AUTO 0.38 K/mm3 (0.00-0.68); EOSINOPHILS PERCENT AUTO 4 % (0-6); Hematocrit 23.7 % (33.0-51.0); Hemoglobin 7.1 g/dL (11.5-16.0); IMMATURE GRAN ABSOLUTE AUTO 0.04 K/mm3 (0.00-0.10); IMMATURE GRAN PERCENT AUTO 1 % (0-1); LYMPHOCYTES ABSOLUTE AUTO 1.07 K/mm3 (0.84-5.20); LYMPHOCYTES PERCENT AUTO 12 % (21-46); MONOCYTES ABSOLUTE AUTO 0.86 K/mm3 (0.16-1.47); MONOCYTES PERCENT AUTO 10 % (4-13); Mean Corpuscular HGB 24.7 pg (26.0-34.0); Mean Corpuscular Volume 82 fL (80-100); Mean Platelet Volume 9.7 fL (9.1-12.4); NEUTROPHILS ABSOLUTE AUTO 6.38 K/mm3 (1.96-9.15); NEUTROPHILS PERCENT AUTO 73 % (41-73); Platelet Count 258 K/mm3 (150-400); RDW Coefficient Variation 16.2 % (11.7-14.2); RDW Standard Deviation 49.1 fL (35.1-46.3); Red Blood Cell Count 2.88 M/mm3 (3.80-5.20); White Blood Cell Count 8.76 K/mm3 (4.00-11.30)
[2022-12-03 22:22] LABS: Albumin, Blood 2.8 g/dL (3.4-5.0); Albumin/Globulin Ratio 0.7 (0.8-1.8); Bilirubin, Total 0.2 mg/dL (0.1-1.0); Bun/Creatinine Ratio 11.9 (12.0-20.0); Calcium, Blood 8.6 mg/dL (8.5-10.1); Creatinine, Blood 1.93 mg/dL (0.40-1.00); Globulin, Blood 4.3 g/dL (2.2-4.0); Potassium, Blood 3.4 mmol/L (3.5-5.5); Total Protein, Blood 7.1 g/dL (6.4-8.2)
[2022-12-04] MEDS ORDERED: FURO80 (01:02)
[2022-12-04] MEDS ORDERED: POTCHL20ER PO (02:05)
[2022-12-04] MEDS ORDERED: SOAANZ20 M2 PO (02:06)
[2022-12-04] MEDS ORDERED: FURO40 PO (02:07)
[2022-12-04 03:07] LABS: IMMATURE RETIC FRACTION 28.6 % (2.3-16.0); RETIC HGB EQUIVALENT 24.9 pg (28.20-36.60); RETICULOCYTE ABSOLUTE 0.0454 M/mm3 (0.0200-0.1100); RETICULOCYTE COUNT PERCENT 1.6 % (0.50-2.50)
--- NOTE | 2022-12-04 06:40 | NUR ---
PATIENT ALERT AND ORIENTED X4, GLASSES ON PATIENT, AFIB CONTROLLED ON TELE, PATIENT USES CANE AND IS A 1 ASSIST, UP AD DEANDRE, CARDIAC DIET, 20 RIGHT WRIST WITH PRBC TRANSFUSING AT 125 CC/HR, 40 MG LASIX GIVEN IN ED, 20 MEQ PO POTASSIUM GIVEN, NYASTATIN CREAM APPLIED TO GROIN, NO EVENTS OVERNIGHT
[2022-12-04 09:51] LABS: BASOPHILS ABSOLUTE AUTO 0.05 K/mm3 (0.00-0.23); BASOPHILS PERCENT AUTO 1 % (0-2); EOSINOPHILS ABSOLUTE AUTO 0.34 K/mm3 (0.00-0.68); EOSINOPHILS PERCENT AUTO 4 % (0-6); Hematocrit 29.5 % (33.0-51.0); IMMATURE GRAN ABSOLUTE AUTO 0.09 K/mm3 (0.00-0.10); IMMATURE GRAN PERCENT AUTO 1 % (0-1); LYMPHOCYTES ABSOLUTE AUTO 0.87 K/mm3 (0.84-5.20); LYMPHOCYTES PERCENT AUTO 10 % (21-46); MONOCYTES ABSOLUTE AUTO 0.61 K/mm3 (0.16-1.47); MONOCYTES PERCENT AUTO 7 % (4-13); Mean Corpuscular HGB 25.4 pg (26.0-34.0); Mean Corpuscular HGB Conc 30.5 g/dL (31.5-36.5); Mean Corpuscular Volume 83 fL (80-100); Mean Platelet Volume 10.1 fL (9.1-12.4); NEUTROPHILS ABSOLUTE AUTO 7.08 K/mm3 (1.96-9.15); NEUTROPHILS PERCENT AUTO 78 % (41-73); Platelet Count 267 K/mm3 (150-400); RDW Coefficient Variation 15.8 % (11.7-14.2); RDW Standard Deviation 48.3 fL (35.1-46.3); Red Blood Cell Count 3.55 M/mm3 (3.80-5.20); White Blood Cell Count 9.04 K/mm3 (4.00-11.30)
[2022-12-04 10:07] LABS: Albumin, Blood 3.2 g/dL (3.4-5.0); Albumin/Globulin Ratio 0.7 (0.8-1.8); Bilirubin, Total 1.2 mg/dL (0.1-1.0); Bun/Creatinine Ratio 10.9 (12.0-20.0); Calcium, Blood 8.5 mg/dL (8.5-10.1); Creatinine, Blood 2.02 mg/dL (0.40-1.00); Globulin, Blood 4.3 g/dL (2.2-4.0); Potassium, Blood 3.8 mmol/L (3.5-5.5); Total Protein, Blood 7.5 g/dL (6.4-8.2)
--- NOTE | 2022-12-04 17:38 | NUR ---
PT IS A/OX4, PLEASANT AND COOPERATIVE. THE PT IS UP IND IN HER ROOM. THE PT APPEARS TO BE BREATHING EASILY ON RA AT THIS TIME. PT FEELS SHE IS BREATHING BETTER SINCE ADMISSON. PT DENIED ANY C/P PAIN OR ANY OTHER PAIN T/O THE DAY. PT REFUSED HER ORDERED LANTUS STATING THAT SHE TAKES IT AT BEDTIME PRN AND FEELS SHE DIDNT NEED IT THIS AM FOR BS 111. CALL LIGHT IN REACH. WILL CONTINUE TO MONITOR AND ASSESS FOR CHANGES
[2022-12-05 05:51] LABS: BASOPHILS ABSOLUTE AUTO 0.04 K/mm3 (0.00-0.23); BASOPHILS PERCENT AUTO 0 % (0-2); EOSINOPHILS ABSOLUTE AUTO 0.44 K/mm3 (0.00-0.68); EOSINOPHILS PERCENT AUTO 5 % (0-6); Hematocrit 26.9 % (33.0-51.0); Hemoglobin 8.6 g/dL (11.5-16.0); IMMATURE GRAN ABSOLUTE AUTO 0.04 K/mm3 (0.00-0.10); IMMATURE GRAN PERCENT AUTO 0 % (0-1); LYMPHOCYTES ABSOLUTE AUTO 1.26 K/mm3 (0.84-5.20); LYMPHOCYTES PERCENT AUTO 14 % (21-46); MONOCYTES ABSOLUTE AUTO 0.98 K/mm3 (0.16-1.47); MONOCYTES PERCENT AUTO 11 % (4-13); Mean Corpuscular HGB 25.6 pg (26.0-34.0); Mean Corpuscular Volume 80 fL (80-100); Mean Platelet Volume 9.6 fL (9.1-12.4); NEUTROPHILS ABSOLUTE AUTO 6.29 K/mm3 (1.96-9.15); NEUTROPHILS PERCENT AUTO 70 % (41-73); Platelet Count 280 K/mm3 (150-400); RDW Coefficient Variation 15.9 % (11.7-14.2); Red Blood Cell Count 3.36 M/mm3 (3.80-5.20); White Blood Cell Count 9.05 K/mm3 (4.00-11.30)
--- NOTE | 2022-12-05 06:07 | NUR ---
PT INDEPENDENT IN ROOM, USING BSC, CALLS FOR NEEDS, SLEPT MOST OF SHIFT
[2022-12-05 06:43] LABS: Bun/Creatinine Ratio 11.9 (12.0-20.0); Calcium, Blood 9.5 mg/dL (8.5-10.1); Creatinine, Blood 2.27 mg/dL (0.40-1.00); Potassium, Blood 3.8 mmol/L (3.5-5.5)
--- NOTE | 2022-12-05 13:22 | NUR ---
PT DISCHARGED THE PT VERBALIZED UNDERSTANDING OF THE DC INSTRUCTIONS. A FOLLOW UP APPOINTMENT WAS MADE WITH THE PTS PC PPRIOR TO DC. THE PT WAS TRANSFERED VIA WHEELCHAIR ACCOMPANIED BY NURSING STUDENTS TO MEET HER RIDE AT THE FRONT DOOR.
== END 2022-12-05 13:20 | disposition home or self-care (01) | DRG 291 ==
LOC: ER 21:34 → MEDS 21:35
PROVIDERS: Internal Medicine; Physician Assistant; ADMIT Internal Medicine
PROC: 30233N1 Transfusion of Nonautologous Red Blood Cells into Peripheral Vein, Percutaneous Approach (ICD-10-PCS; principal; 2022-12-04)
DX: I13.0 Hypertensive heart and chronic kidney disease with heart failure and stage 1 through stage 4 chronic kidney disease, or unspecified chronic kidney disease (principal); I50.33 Acute on chronic diastolic (congestive) heart failure; B37.89 Other sites of candidiasis; I48.20 Chronic atrial fibrillation, unspecified; N17.9 Acute kidney failure, unspecified; E87.6 Hypokalemia; D50.9 Iron deficiency anemia, unspecified; N18.30 Chronic kidney disease, stage 3 unspecified; E11.22 Type 2 diabetes mellitus with diabetic chronic kidney disease; I25.10 Atherosclerotic heart disease of native coronary artery without angina pectoris; D63.1 Anemia in chronic kidney disease; Z96.642 Presence of left artificial hip joint; Z91.14 Patient's other noncompliance with medication regimen; Z88.2 Allergy status to sulfonamides; Z91.018 Allergy to other foods; Z91.048 Other nonmedicinal substance allergy status; Z88.5 Allergy status to narcotic agent; Z79.4 Long term (current) use of insulin; Z79.899 Other long term (current) drug therapy; Z87.19 Personal history of other diseases of the digestive system; Z90.49 Acquired absence of other specified parts of digestive tract; Z90.710 Acquired absence of both cervix and uterus; Z98.890 Other specified postprocedural states; Z87.891 Personal history of nicotine dependence; Z79.01 Long term (current) use of anticoagulants
CPT/HCPCS: 36415; 71046; 80048; 80053; 82947; 83690; 83880; 85025; 85045; 86850; 86900; 86901; 86923; 93005; 93010; 96374; 99285-25; A9270; C9113; J1815; J1940; J7050; P9016

== ENCOUNTER 2023-01-23 20:57 | Emergency (ER) | payer MEDICARE ==
[~2023-01-23] VITALS: Ht 177.8 cm; Wt 70.3 kg
[~2023-01-23 20:57] MED LIST changes: +FURO40 PO; +FURO80; +SOAANZ20 M2 PO
[2023-01-23 22:07] LABS: BASOPHILS ABSOLUTE AUTO 0.03 K/mm3 (0.00-0.23); BASOPHILS PERCENT AUTO 0 % (0-2); EOSINOPHILS ABSOLUTE AUTO 0.39 K/mm3 (0.00-0.68); EOSINOPHILS PERCENT AUTO 5 % (0-6); Hematocrit 25.4 % (33.0-51.0); Hemoglobin 7.6 g/dL (11.5-16.0); IMMATURE GRAN ABSOLUTE AUTO 0.03 K/mm3 (0.00-0.10); IMMATURE GRAN PERCENT AUTO 0 % (0-1); LYMPHOCYTES ABSOLUTE AUTO 1.01 K/mm3 (0.84-5.20); LYMPHOCYTES PERCENT AUTO 12 % (21-46); MONOCYTES ABSOLUTE AUTO 0.72 K/mm3 (0.16-1.47); MONOCYTES PERCENT AUTO 8 % (4-13); Mean Corpuscular HGB 25.2 pg (26.0-34.0); Mean Corpuscular HGB Conc 29.9 g/dL (31.5-36.5); Mean Corpuscular Volume 84 fL (80-100); Mean Platelet Volume 9.9 fL (9.1-12.4); NEUTROPHILS ABSOLUTE AUTO 6.44 K/mm3 (1.96-9.15); NEUTROPHILS PERCENT AUTO 75 % (41-73); Platelet Count 285 K/mm3 (150-400); RDW Coefficient Variation 16.3 % (11.7-14.2); RDW Standard Deviation 50.4 fL (35.1-46.3); Red Blood Cell Count 3.02 M/mm3 (3.80-5.20); White Blood Cell Count 8.62 K/mm3 (4.00-11.30)
[2023-01-23 22:15] LABS: Albumin, Blood 3.1 g/dL (3.4-5.0); Albumin/Globulin Ratio 0.8 (0.8-1.8); Bilirubin, Total 0.4 mg/dL (0.1-1.0); Bun/Creatinine Ratio 13.3 (12.0-20.0); Calcium, Blood 8.5 mg/dL (8.5-10.1); Creatinine, Blood 1.88 mg/dL (0.40-1.00); Potassium, Blood 4.7 mmol/L (3.5-5.5); Total Protein, Blood 7.1 g/dL (6.4-8.2)
[2023-01-23] MEDS ORDERED: MECL12.5 PO (22:35)
[2023-01-23 22:46] LABS: Source, Urine Clean Catch
[2023-01-23 23:04] LABS: Bilirubin, Urine Neg (Neg); Blood, Urine 2+ (Neg); Glucose Qualitative, Urine Neg (Neg); Ketones, Urine Neg (Neg); Leukocyte Esterase, Urine 3+ (Neg); Nitrite, Urine Neg (Neg); Protein, Urine 4+ (Neg); Urobilinogen, Urine NORM (Normal)
[2023-01-23 23:17] LABS: Color, Urine Yellow (P-Yellow)
[2023-01-23 23:18] LABS: Appearance, Urine Cloudy (Clear)
[2023-01-23 23:20] LABS: Bacteria Many /hpf; Red Blood Cells, Urine 0-2 /hpf (0-2); Squamous Epithelial Cells Few /hpf (Few); White Blood Cells, Urine TNTC /hpf (0-5)
[2023-01-24] MEDS ORDERED: Colace100 MG PO (00:22)
[2023-01-24] MEDS ORDERED: CEPH500 PO (00:22)
[2023-01-24] MEDS ORDERED: Vibramycin100 MG PO (00:53)
[2023-01-24 01:40] VITALS: BP 141/92
== END 2023-01-24 01:48 | disposition home or self-care (01) ==
LOC: ER 20:57
PROVIDERS: Physician Assistant
DX: N30.00 Acute cystitis without hematuria (principal); K59.00 Constipation, unspecified; I10 Essential (primary) hypertension; E11.9 Type 2 diabetes mellitus without complications; Z88.5 Allergy status to narcotic agent; Z88.2 Allergy status to sulfonamides; Z91.018 Allergy to other foods; Z91.09 Other allergy status, other than to drugs and biological substances; Z79.4 Long term (current) use of insulin; Z79.899 Other long term (current) drug therapy
CPT/HCPCS: 36415; 51701; 71045; 74177; 80053; 81001; 83690; 85025; 87077; 87086; 87186; 93005; 93010; 96365-59; 96375-59; 99284-25; A9270; J0696; J1885; J7030; Q9967

== ENCOUNTER 2023-07-26 16:43 | Inpatient (IN) | payer MEDICARE ==
[~2023-07-26] VITALS: Ht 152.4 cm; Wt 66.6 kg
[~2023-07-26 16:43] MED LIST changes: +CEPH500 PO; +Colace100 MG PO; +MECL12.5 PO; +Vibramycin100 MG PO
[2023-07-26 18:31] LABS: Albumin/Globulin Ratio 0.7 (0.8-1.8); Bilirubin, Total 0.4 mg/dL (0.1-1.0); Bun/Creatinine Ratio 18.3 (12.0-20.0); Calcium, Blood 8.7 mg/dL (8.5-10.1); Creatinine, Blood 2.02 mg/dL (0.40-1.00); Globulin, Blood 4.1 g/dL (2.2-4.0); Total Protein, Blood 7.1 g/dL (6.4-8.2)
[2023-07-26 19:31] LABS: BASOPHILS ABSOLUTE AUTO 0.04 K/mm3 (0.00-0.23); BASOPHILS PERCENT AUTO 1 % (0-2); EOSINOPHILS ABSOLUTE AUTO 0.13 K/mm3 (0.00-0.68); EOSINOPHILS PERCENT AUTO 2 % (0-6); Hematocrit 18.9 % (33.0-51.0); IMMATURE GRAN ABSOLUTE AUTO 0.04 K/mm3 (0.00-0.10); IMMATURE GRAN PERCENT AUTO 1 % (0-1); LYMPHOCYTES ABSOLUTE AUTO 0.82 K/mm3 (0.84-5.20); LYMPHOCYTES PERCENT AUTO 11 % (21-46); MONOCYTES ABSOLUTE AUTO 0.61 K/mm3 (0.16-1.47); MONOCYTES PERCENT AUTO 9 % (4-13); Mean Corpuscular HGB 19.2 pg (26.0-34.0); Mean Corpuscular Volume 71 fL (80-100); Mean Platelet Volume 10.3 fL (9.1-12.4); NEUTROPHILS ABSOLUTE AUTO 5.55 K/mm3 (1.96-9.15); NEUTROPHILS PERCENT AUTO 77 % (41-73); Platelet Count 346 K/mm3 (150-400); RDW Coefficient Variation 18.6 % (11.7-14.2); RDW Standard Deviation 47.3 fL (35.1-46.3); Red Blood Cell Count 2.65 M/mm3 (3.80-5.20); White Blood Cell Count 7.19 K/mm3 (4.00-11.30)
[2023-07-26 19:40] LABS: Hemoglobin 5.1 g/dL (11.5-16.0)
[2023-07-26 21:20] LABS: Percent Saturation 2.3 % (15.0-50.0)
[2023-07-26 22:50] VITALS: BP 135/69
--- NOTE | 2023-07-26 23:28 | NUR ---
ADMISSION NOTE PATIENT ARRIVED TO PCU 15 VIA STRETCHER, SLIDE TRANSFER COMPLETED. PATIENT IS ALERT AND ORIENTED X4, ALTHOUGH UNSURE OF SOME MEDICAL HISTORY. PATIENT REPORTS LIVING AT HOME ALONE AND BEING WEAKER THAN USUAL LATELY. SPO2 HIGH 90'S ON ROOM AIR. DENIES CHEST PAIN AND SHORTNESS OF BREATH. VITAL SIGNS STABLE. AFIB ON TELE. WILL CONTINUE TO MONITOR. CALL LIGHT WITHIN REACH.
[2023-07-27] VITALS (13 sets, daily range): BP systolic 120–149; BP diastolic 47–81
[2023-07-27 06:41] LABS: Hematocrit 25.4 % (33.0-51.0); Hemoglobin 7.6 g/dL (11.5-16.0); Mean Corpuscular HGB 22.3 pg (26.0-34.0); Mean Corpuscular HGB Conc 29.9 g/dL (31.5-36.5); Mean Corpuscular Volume 75 fL (80-100); Mean Platelet Volume 10.4 fL (9.1-12.4); Platelet Count 278 K/mm3 (150-400); RDW Standard Deviation 51.8 fL (35.1-46.3); Red Blood Cell Count 3.41 M/mm3 (3.80-5.20); White Blood Cell Count 7.33 K/mm3 (4.00-11.30)
[2023-07-27 06:53] LABS: International Normalized Ratio 1.15
--- NOTE | 2023-07-27 06:58 | NUR ---
SHIFT SUMMARY PATIENT HAS RECEIVED A TOTAL OF 2 UNITS OF PRBC'S, TOLERATED TRANSFUSIONS WELL. NO ISSUES NOTED SINCE ADMIT NOTE. WILL CONTINUE TO MONITOR. CALL LIGHT WITHIN REACH.
[2023-07-27 07:04] LABS: Albumin/Globulin Ratio 0.8 (0.8-1.8); Bilirubin, Total 0.9 mg/dL (0.1-1.0); Bun/Creatinine Ratio 16.4 (12.0-20.0); Calcium, Blood 8.7 mg/dL (8.5-10.1); Creatinine, Blood 2.13 mg/dL (0.40-1.00); Magnesium, Blood 2.2 mg/dL (1.6-2.4); Potassium, Blood 3.8 mmol/L (3.5-5.5)
[2023-07-27 14:20] LABS: Stool Occult Blood Guaiac 1 Pos (Neg)
--- NOTE | 2023-07-27 16:25 | NUR ---
TRANSFER: PT TRANSFERRED FROM PCU 15 TO MEDICAL [facility] VIA WHEELCHAIR. REPORT GIVEN TO SYLVESTER ZIMMERMAN. ALL BELONGINGS WITH PT.
--- NOTE | 2023-07-27 16:33 | NUR ---
359 report recieved from PCU. Pt arrived via w/c. Pt helped to new bed. Yuniorck restarted per pt request. Continue POC>
[2023-07-28 03:36] VITALS: BP 136/66
--- NOTE | 2023-07-28 06:29 | NUR ---
NOC SHIFT SUMMARY NO NEW CONCERNS OVERNIGHT. PATIENT RESTING.
[2023-07-28 07:16] VITALS: BP 143/63
[2023-07-28 12:49] LABS: BASOPHILS ABSOLUTE AUTO 0.05 K/mm3 (0.00-0.23); BASOPHILS PERCENT AUTO 1 % (0-2); EOSINOPHILS ABSOLUTE AUTO 0.48 K/mm3 (0.00-0.68); EOSINOPHILS PERCENT AUTO 6 % (0-6); Hematocrit 25.3 % (33.0-51.0); Hemoglobin 7.5 g/dL (11.5-16.0); IMMATURE GRAN ABSOLUTE AUTO 0.04 K/mm3 (0.00-0.10); IMMATURE GRAN PERCENT AUTO 1 % (0-1); LYMPHOCYTES ABSOLUTE AUTO 0.85 K/mm3 (0.84-5.20); LYMPHOCYTES PERCENT AUTO 11 % (21-46); MONOCYTES ABSOLUTE AUTO 0.92 K/mm3 (0.16-1.47); MONOCYTES PERCENT AUTO 12 % (4-13); Mean Corpuscular HGB 22.4 pg (26.0-34.0); Mean Corpuscular HGB Conc 29.6 g/dL (31.5-36.5); Mean Corpuscular Volume 76 fL (80-100); Mean Platelet Volume 10.6 fL (9.1-12.4); NEUTROPHILS PERCENT AUTO 69 % (41-73); NRBC ABSOLUTE 0.03 K/mm3 (0.00-0.02); NRBC Auto 0.4 /100 WBC (0.0-0.2); Platelet Count 271 K/mm3 (150-400); RDW Coefficient Variation 19.5 % (11.7-14.2); Red Blood Cell Count 3.35 M/mm3 (3.80-5.20); White Blood Cell Count 7.64 K/mm3 (4.00-11.30)
[2023-07-28 16:20] VITALS: BP 126/62
[2023-07-28 19:13] VITALS: BP 109/46
[2023-07-29 02:42] VITALS: BP 125/68
[2023-07-29 05:01] LABS: BASOPHILS ABSOLUTE AUTO 0.06 K/mm3 (0.00-0.23); BASOPHILS PERCENT AUTO 1 % (0-2); EOSINOPHILS ABSOLUTE AUTO 0.61 K/mm3 (0.00-0.68); EOSINOPHILS PERCENT AUTO 9 % (0-6); Hemoglobin 7.8 g/dL (11.5-16.0); IMMATURE GRAN ABSOLUTE AUTO 0.04 K/mm3 (0.00-0.10); IMMATURE GRAN PERCENT AUTO 1 % (0-1); LYMPHOCYTES ABSOLUTE AUTO 1.15 K/mm3 (0.84-5.20); LYMPHOCYTES PERCENT AUTO 16 % (21-46); MONOCYTES ABSOLUTE AUTO 0.81 K/mm3 (0.16-1.47); MONOCYTES PERCENT AUTO 12 % (4-13); Mean Corpuscular HGB 22.4 pg (26.0-34.0); Mean Corpuscular Volume 75 fL (80-100); Mean Platelet Volume 10.3 fL (9.1-12.4); NEUTROPHILS ABSOLUTE AUTO 4.34 K/mm3 (1.96-9.15); NEUTROPHILS PERCENT AUTO 62 % (41-73); NRBC ABSOLUTE 0.02 K/mm3 (0.00-0.02); NRBC Auto 0.3 /100 WBC (0.0-0.2); Platelet Count 280 K/mm3 (150-400); RDW Coefficient Variation 19.9 % (11.7-14.2); RDW Standard Deviation 53.6 fL (35.1-46.3); Red Blood Cell Count 3.48 M/mm3 (3.80-5.20); White Blood Cell Count 7.01 K/mm3 (4.00-11.30)
--- NOTE | 2023-07-29 05:19 | NUR ---
NOC SHIFT SUMMARY: PT HOPING TO BE DISCHARGED TODAY. PUREWICK IN PLACE. NO C/O PAIN OVERNIGHT. SLEPT OKAY. UP WITH 1 AND A CANE.
[2023-07-29 05:40] LABS: Bun/Creatinine Ratio 18.3 (12.0-20.0); Calcium, Blood 8.4 mg/dL (8.5-10.1); Creatinine, Blood 2.24 mg/dL (0.40-1.00); Potassium, Blood 3.5 mmol/L (3.5-5.5)
[2023-07-29 07:30] VITALS: BP 126/71
[2023-07-29] MEDS ORDERED: VITAMIN D31000 UNI1 PO (12:25)
[2023-07-29] MEDS ORDERED: Isosorbide Mono30 MG PO (12:26)
[2023-07-29] MEDS ORDERED: CEPH250A PO (12:26)
[2023-07-29] MEDS ORDERED: Acetaminophen650 M1 PO (12:26)
[2023-07-29] MEDS ORDERED: Amlodipine Bes2.5 MG PO (12:26)
[2023-07-29] MEDS ORDERED: VISBIOME 112.51 EACH PO (12:26)
--- NOTE | 2023-07-29 14:37 | NUR ---
DISCHARGE NOTE PT DISCHARGED TO HOME, PICKED UP BY HER DAUGHTER. IV REMOVED. DISCHARGE INFORMATION AND EDUCATION PROVIDED. MEDICATIONS FAXED TO THE PHARMACY OF HER CHOICE. PERSONAL BELONGINGS RETURNED.
== END 2023-07-29 14:25 | disposition home or self-care (01) | DRG 811 ==
LOC: ER 16:43 → PCU 16:44 → MEDS 07-27 16:30 → ENPENDDIS 07-29 10:20 → MEDS 07-29 14:25
PROVIDERS: Emergency Medicine; Internal Medicine; Nurse Practitioner Acute Care; ADMIT Student in an Organized Health Care Education/Training Program
PROC: 30233N1 Transfusion of Nonautologous Red Blood Cells into Peripheral Vein, Percutaneous Approach (ICD-10-PCS; principal; 2023-07-26)
PROC: B24BZZZ Ultrasonography of Heart with Aorta (ICD-10-PCS; 2023-07-27)
DX: D50.9 Iron deficiency anemia, unspecified (principal); I50.33 Acute on chronic diastolic (congestive) heart failure; N18.4 Chronic kidney disease, stage 4 (severe); I82.812 Embolism and thrombosis of superficial veins of left lower extremity; I13.0 Hypertensive heart and chronic kidney disease with heart failure and stage 1 through stage 4 chronic kidney disease, or unspecified chronic kidney disease; I48.20 Chronic atrial fibrillation, unspecified; D63.1 Anemia in chronic kidney disease; E11.22 Type 2 diabetes mellitus with diabetic chronic kidney disease; K76.1 Chronic passive congestion of liver; R19.5 Other fecal abnormalities; I25.10 Atherosclerotic heart disease of native coronary artery without angina pectoris; L53.9 Erythematous condition, unspecified; Z96.642 Presence of left artificial hip joint; Z88.5 Allergy status to narcotic agent; Z88.2 Allergy status to sulfonamides; Z88.8 Allergy status to other drugs, medicaments and biological substances; Z79.4 Long term (current) use of insulin
CPT/HCPCS: 36415; 71045; 80048; 80053; 82272; 82728; 82947; 83540; 83550; 83735; 83880; 85025; 85027; 85610; 86850; 86900; 86901; 86923; 93306; 93971; 96374; 99284-25; A9270; J1940; J2916; J7030; P9016

== ENCOUNTER 2023-10-28 10:41 | Inpatient (IN) | payer MEDICARE ==
[~2023-10-28] VITALS: Ht 152.4 cm; Wt 65.2 kg
[~2023-10-28 10:41] MED LIST changes: +Acetaminophen650 M1 PO; +Amlodipine Bes2.5 MG PO; +CEPH250A PO; +Isosorbide Mono30 MG PO; +VISBIOME 112.51 EACH PO; +VITAMIN D31000 UNI1 PO
[2023-10-28 11:29] LABS: BASOPHILS ABSOLUTE AUTO 0.04 K/mm3 (0.00-0.23); BASOPHILS PERCENT AUTO 1 % (0-2); EOSINOPHILS ABSOLUTE AUTO 0.18 K/mm3 (0.00-0.68); EOSINOPHILS PERCENT AUTO 4 % (0-6); Hematocrit 18.6 % (33.0-51.0); IMMATURE GRAN ABSOLUTE AUTO 0.04 K/mm3 (0.00-0.10); IMMATURE GRAN PERCENT AUTO 1 % (0-1); LYMPHOCYTES ABSOLUTE AUTO 0.89 K/mm3 (0.84-5.20); LYMPHOCYTES PERCENT AUTO 19 % (21-46); MONOCYTES ABSOLUTE AUTO 0.43 K/mm3 (0.16-1.47); MONOCYTES PERCENT AUTO 9 % (4-13); Mean Corpuscular HGB 21.5 pg (26.0-34.0); Mean Corpuscular Volume 77 fL (80-100); NEUTROPHILS PERCENT AUTO 66 % (41-73); NRBC ABSOLUTE 0.02 K/mm3 (0.00-0.02); NRBC Auto 0.4 /100 WBC (0.0-0.2); RDW Coefficient Variation 17.9 % (11.7-14.2); RDW Standard Deviation 49.9 fL (35.1-46.3); Red Blood Cell Count 2.42 M/mm3 (3.80-5.20); White Blood Cell Count 4.58 K/mm3 (4.00-11.30)
[2023-10-28 11:54] LABS: Mean Platelet Volume 11.1 fL (9.1-12.4); Platelet Count 122 K/mm3 (150-400)
[2023-10-28 11:56] LABS: Hemoglobin 5.2 g/dL (11.5-16.0)
[2023-10-28 11:59] LABS: Albumin, Blood 3.1 g/dL (3.4-5.0); Albumin/Globulin Ratio 0.8 (0.8-1.8); Bilirubin, Total 0.3 mg/dL (0.1-1.0); Bun/Creatinine Ratio 16.9 (12.0-20.0); Calcium, Blood 8.5 mg/dL (8.5-10.1); Creatinine, Blood 1.89 mg/dL (0.40-1.00); Globulin, Blood 4.1 g/dL (2.2-4.0); Total Protein, Blood 7.2 g/dL (6.4-8.2)
[2023-10-28 12:25] LABS: BASOPHILS PERCENT MAN 0 % (0-2); EOSINOPHILS ABSOLUTE MAN 0.27 K/mm3 (0.00-0.68); EOSINOPHILS PERCENT MAN 6 % (0-6); LYMPHOCYTES ABSOLUTE MAN 0.82 K/mm3 (0.84-5.20); LYMPHOCYTES PERCENT MAN 18 % (21-46); MONOCYTES ABSOLUTE MAN 0.36 K/mm3 (0.16-1.47); MONOCYTES PERCENT MAN 8 % (4-13); NEUTROPHILS ABSOLUTE MAN 3.11 K/mm3 (1.96-9.15); SEG NEUTROPHILS PERCENT MAN 68 % (41-73); TOTAL CELLS COUNTED 100
[2023-10-28 18:05] VITALS: BP 164/64
[2023-10-28] MEDS ORDERED: GABA100 PO (18:17)
[2023-10-28 19:41] VITALS: BP 176/70
[2023-10-28 21:37] VITALS: BP 134/49
[2023-10-28 22:30] VITALS: BP 158/50
[2023-10-28 23:03] VITALS: BP 149/59
[2023-10-29] VITALS (9 sets, daily range): BP systolic 152–185; BP diastolic 48–68
[2023-10-29 02:49] LABS: Creatinine, Blood 1.88 mg/dL (0.40-1.00); Potassium, Blood 4.5 mmol/L (3.5-5.5)
[2023-10-29 03:26] LABS: Hematocrit 26.1 % (33.0-51.0); Hemoglobin 7.6 g/dL (11.5-16.0); Mean Corpuscular HGB 23.9 pg (26.0-34.0); Mean Corpuscular HGB Conc 29.1 g/dL (31.5-36.5); Mean Platelet Volume 10.8 fL (9.1-12.4); NRBC ABSOLUTE 0.02 K/mm3 (0.00-0.02); NRBC Auto 0.5 /100 WBC (0.0-0.2); Platelet Count 176 K/mm3 (150-400); RDW Coefficient Variation 18.2 % (11.7-14.2); RDW Standard Deviation 53.7 fL (35.1-46.3); Red Blood Cell Count 3.18 M/mm3 (3.80-5.20); White Blood Cell Count 4.41 K/mm3 (4.00-11.30)
[2023-10-29 03:29] LABS: Mean Corpuscular Volume 82 fL (80-100)
--- NOTE | 2023-10-29 06:09 | NUR ---
SHIFT SUMMARY PATIENT ALERT AND ORIENTED, ABLE TO MAKE NEEDS KNOWN TO STAFF. BP HYPERTENSIVE AT TIMES. TELE READING SB/SR WITH HR RANDING FROM 50-70. ON RA WITH SPO2 >95%. PATIENT RECEIVED 2 UNIT PRBCs DURING THE NIGHT. PUREWICK PLACED DURING THE NIGHT, ADEQUATE OUTPUT. PATIENT ADJUSTING SELF IN BED WELL BEING TURNED BY STAFF. NO OTHER CHANGES DURING THE NIGHT. WILL REPORT TO DAY SHIFT RN.
--- NOTE | 2023-10-29 08:49 | NUR ---
DEMAND GENERATION MANAGER NOTE 10/29/23 This nursing staff development coordinator obtained verbal consent to treat
--- NOTE | 2023-10-29 10:20 | NUR ---
NURSING PCU DAYSHIFT: Assumed care of pt at approx 0700. A/O, mildly [place], very pleasant, cooperative w/care. General weakness, repositions and ambulates w/assistance. Skin is fragile, no significant breakdown noted, redness and warmth to BLE. Denies any pain/discomfort at rest. Tele in place, SB 40-60's, hypertensive w/SBP 174 prior to a.m. meds, 1+ BLE edema, pedal pulses faint though palpable. L/S w/fine bibasilar crackles, O2 sat 100% on RA, denies dyspnea at rest, no noted cough. Abd SNT, BT+, frequent voiding, PW and attends in place. PIV x2, s/l. No s/s of acute distress. Awaiting rounding from PMD, telephone notification made regarding BLE redness. Pt denies any current needs or questions regarding plan of care. Lab currently at bedside for troponin draw, PCT in room assisting w/ADL's. Metoprolol held d/t HR, will monitor BP after administration of IV lasix. Call light in reach, cont to monitor for any changes.
--- NOTE | 2023-10-29 17:56 | NUR ---
NURSING PCU DAYSHIFT SUMMARY: No significant changes noted t/o the shift. Hypertensive this afternoon, tx w/PRN hydralazine as ordered, continuing to monitor. Seen by GI, discussed colonoscopy which pt declined. Daughter at bedside earlier in shift, update provided. Pt has been tolerating PO intake w/o difficulty though had experienced a short period of nausea this afternoon which was treated w/zofran, otherwise comfortable t/o shift. No s/s of acute distress, resting comfortably w/light off, cont to monitor until rpt is given to NOC RN.
--- NOTE | 2023-10-30 00:14 | NUR ---
SHIFT SUMMARY/TRANSFER NOTE PT ALERT AND ORIENTED X 4, COOPERATIVE WITH CARE AND ABLE TO MAKE NEEDS KNOWN. PIETRO. SHE IS ON RA AND MAINTAINING 02 SATURATION ABOVE 92%, SHE DENIES SOB. HR SR 80'S AND SHE HAS DENIED CHEST PAIN/PRESSURE ALL SHIFT. PUREWICK IN PLACE AND DRAINING YELLOW URINE. 1+ EDEMA TO BLE. PT HAS DENIED PAIN ALL SHIFT, SHE HAS BEEN SLEEPING THE MAJORITY OF THE TIME WITH CALL LIGHT WITHIN REACH. SYMMETRICAL MOVEMENT OF CHEST, RR 16, AND 02 ABOVE 92%. SHE TRANSFERRED TO MEDICAL FLOOR AT APPROXIMATELY 0014 WITH ALL OF HER BELONGINGS. REPORT WAS GIVEN TO MEDICAL FLOOR NURSE.
--- NOTE | 2023-10-30 02:53 | NUR ---
PATIENT ARRIVED TO MEDICAL FLOOR FROM PCU AT 0015 FROM PCU. REPORT PRIOR TO PARTIENT LEAVING PCU. PATIENT IS AO X 4 ON ARRIVAL TO UNIT. SHE IS ABLE TO STAND AND PIVOT TO BED. PATIENT REQUESTS PUREWICK BE PLACED AGAIN IT WAS REMOVED ON TRANSFER. PLACED TO SUCTION PER HER REQUEST. PATIENT DENIES ANY WANTS OR NEEDS AT THIS TIME. CALL LIGHT PLACED IN REACH. PATIENT ORIENTED TO MEDICAL FLOOR UNIT. WILL REMAIN AVAILABLE FOR THIS PATIENT UNTIL REPORT AND SHIFT CHANGE TO DAY SHIFT RN.
[2023-10-30 05:45] VITALS: BP 157/55
[2023-10-30 07:22] VITALS: BP 154/50
[2023-10-30 07:51] LABS: Bun/Creatinine Ratio 15.5 (12.0-20.0); Creatinine, Blood 2.19 mg/dL (0.40-1.00)
[2023-10-30 09:24] LABS: Hematocrit 27.3 % (33.0-51.0); Hemoglobin 8.2 g/dL (11.5-16.0); Mean Corpuscular HGB 24.1 pg (26.0-34.0); Mean Corpuscular Volume 80 fL (80-100); Mean Platelet Volume 10.9 fL (9.1-12.4); NRBC ABSOLUTE 0.03 K/mm3 (0.00-0.02); NRBC Auto 0.7 /100 WBC (0.0-0.2); Platelet Count 184 K/mm3 (150-400); White Blood Cell Count 4.56 K/mm3 (4.00-11.30)
[2023-10-30] MEDS ORDERED: PANT40 PO (11:12)
--- NOTE | 2023-10-30 14:29 | NUR ---
DISCHARGE NOTE MS MCMAHON WAS DISCHARGED FROM MEDICAL UNIT TO HOME AT 1425HRS. ESCORTED VIA WHEELCHAIR TO HER RIDE HOME. BOX TOE BUFFER REMOVED PIV AND TELEMETRY PRIOR TO DISCHARGE. PT HAS DENIED HAVING ANY PAIN OR CONCERNS TODAY, NO NEW COMPLAINTS OR CONCERNS PRIOR TO DISCHAGE. SHE VERBALISED UNDERSTANDING OF WRITTEN AND VERBAL DISCHARGE INSTRUCTIONS. SHE AMBULATED WELL WITH PHYSICAL THERAPY IN THE HALLS AND DID WELL SITTING UP IN THE RECLINER FOR MOST OF THE DAY. SHE LIES ALONE BUT SAID SHE HAS GOOD FAMILY SUPPORT NEAR BY.
== END 2023-10-30 14:24 | disposition home health service (06) | DRG 811 ==
LOC: ER 10:41 → MEDS 17:13 → PCU 17:13 → MEDS 17:13 → PCU 17:51 → MEDS 10-30 01:10 → ENPENDDIS 10-30 11:03 → MEDS 10-30 14:24
PROVIDERS: Physician Assistant; ADMIT Internal Medicine
PROC: 30233N0 Transfusion of Autologous Red Blood Cells into Peripheral Vein, Percutaneous Approach (ICD-10-PCS; principal; 2023-10-28)
DX: D62 Acute posthemorrhagic anemia (principal); I21.A1 Myocardial infarction type 2; K92.2 Gastrointestinal hemorrhage, unspecified; N18.4 Chronic kidney disease, stage 4 (severe); I50.32 Chronic diastolic (congestive) heart failure; I13.0 Hypertensive heart and chronic kidney disease with heart failure and stage 1 through stage 4 chronic kidney disease, or unspecified chronic kidney disease; I48.20 Chronic atrial fibrillation, unspecified; Z66 Do not resuscitate; E11.22 Type 2 diabetes mellitus with diabetic chronic kidney disease; D50.9 Iron deficiency anemia, unspecified; D69.6 Thrombocytopenia, unspecified; E11.42 Type 2 diabetes mellitus with diabetic polyneuropathy; Z53.29 Procedure and treatment not carried out because of patient's decision for other reasons; Z79.4 Long term (current) use of insulin
CPT/HCPCS: 36415; 71046; 80048; 80053; 82947; 83880; 84484; 85025; 85027; 86850; 86900; 86901; 86923; 93005; 93010; 94760; 97116; 97162; 97530; A9270; C9113; J0360; J1940; J2270; J2405; J2916; J3010; J7030; J7050; P9016

== ENCOUNTER 2024-06-13 12:49 | Emergency (ER) | payer MEDICARE ==
[~2024-06-13] VITALS: Ht 152.4 cm; Wt 58.5 kg
[~2024-06-13 12:49] MED LIST changes: +Carisoprodol350 MG PO; +Cefadroxil500 MG PO; +GABA100 PO
[2024-06-13 12:54] VITALS: BP 159/120
== END 2024-06-13 14:57 | disposition home or self-care (01) ==
LOC: ER 12:49
DX: M79.10 Myalgia, unspecified site (principal); E11.9 Type 2 diabetes mellitus without complications; I10 Essential (primary) hypertension; I48.91 Unspecified atrial fibrillation; Z87.891 Personal history of nicotine dependence; Z79.899 Other long term (current) drug therapy; Z88.5 Allergy status to narcotic agent; Z91.018 Allergy to other foods; Z88.8 Allergy status to other drugs, medicaments and biological substances
CPT/HCPCS: 72170; 99283-25

== ENCOUNTER 2024-06-16 22:32 | Emergency (ER) | payer MEDICARE ==
[~2024-06-16] VITALS: Ht 152.4 cm; Wt 59.0 kg
[2024-06-16] MEDS ORDERED: Ketorolac Tromethamine 15mg Vial IV ONE (23:05)
[2024-06-16] MEDS ORDERED: Lidocaine 4% 1 Patch TOP ONE (23:05)
[2024-06-17 00:21] LABS: Source, Urine Straight Cath
[2024-06-17 00:25] LABS: Bilirubin, Urine Neg (Neg); Blood, Urine 1+ (Neg); Glucose Qualitative, Urine 1+ (Neg); Ketones, Urine Neg (Neg); Leukocyte Esterase, Urine 2+ (Neg); Nitrite, Urine Pos (Neg); Protein, Urine 3+ (Neg); Urobilinogen, Urine NORM (Normal)
[2024-06-17 00:31] LABS: BASOPHILS ABSOLUTE AUTO 0.06 K/mm3 (0.00-0.23); BASOPHILS PERCENT AUTO 1 % (0-2); EOSINOPHILS ABSOLUTE AUTO 0.45 K/mm3 (0.00-0.68); EOSINOPHILS PERCENT AUTO 6 % (0-6); Hematocrit 24.8 % (33.0-51.0); Hemoglobin 7.4 g/dL (11.5-16.0); IMMATURE GRAN PERCENT AUTO 1 % (0-1); LYMPHOCYTES ABSOLUTE AUTO 1.28 K/mm3 (0.84-5.20); LYMPHOCYTES PERCENT AUTO 18 % (21-46); MONOCYTES ABSOLUTE AUTO 0.63 K/mm3 (0.16-1.47); MONOCYTES PERCENT AUTO 9 % (4-13); Mean Corpuscular HGB 23.6 pg (26.0-34.0); Mean Corpuscular HGB Conc 29.8 g/dL (31.5-36.5); Mean Corpuscular Volume 79 fL (80-100); Mean Platelet Volume 10.3 fL (9.1-12.4); NEUTROPHILS ABSOLUTE AUTO 4.55 K/mm3 (1.96-9.15); NEUTROPHILS PERCENT AUTO 64 % (41-73); Platelet Count 214 K/mm3 (150-400); RDW Coefficient Variation 17.4 % (11.7-14.2); RDW Standard Deviation 49.7 fL (35.1-46.3); Red Blood Cell Count 3.13 M/mm3 (3.80-5.20); White Blood Cell Count 7.07 K/mm3 (4.00-11.30)
[2024-06-17 00:39] LABS: Albumin, Blood 2.7 g/dL (3.4-5.0); Albumin/Globulin Ratio 0.7 (0.8-1.8); Bilirubin, Total 0.2 mg/dL (0.1-1.0); Bun/Creatinine Ratio 12.9 (12.0-20.0); Calcium, Blood 8.4 mg/dL (8.5-10.1); Creatinine, Blood 2.4 mg/dL (0.40-1.00); Globulin, Blood 4.1 g/dL (2.2-4.0); Potassium, Blood 3.5 mmol/L (3.5-5.5); Total Protein, Blood 6.8 g/dL (6.4-8.2)
[2024-06-17 00:44] LABS: Appearance, Urine Hazy (Clear); Color, Urine Yellow (P-Yellow)
[2024-06-17 00:45] LABS: Amorphous Light (0-Heavy); Bacteria Many /hpf; Red Blood Cells, Urine 0-2 /hpf (0-2); Squamous Epithelial Cells Few /hpf (Few); White Blood Cells, Urine 50-100 /hpf (0-5)
[2024-06-17] MEDS ORDERED: Doxycycline Hyclate 100 MG TAB PO ONE (01:40)
[2024-06-17] MEDS ORDERED: LIDO700A20 TOP (03:51)
[2024-06-17] MEDS ORDERED: ACET500 PO (03:51)
[2024-06-17] MEDS ORDERED: Ibuprofen600 MG PO (03:51)
[2024-06-17] MEDS ORDERED: Doxycycline Mo100 M1 PO (04:12)
[2024-06-17 04:17] VITALS: BP 174/95
== END 2024-06-17 04:48 | disposition home or self-care (01) ==
LOC: ER 22:32
PROVIDERS: Student in an Organized Health Care Education/Training Program
DX: S32.049A Unspecified fracture of fourth lumbar vertebra, initial encounter for closed fracture (principal); D73.5 Infarction of spleen; N39.0 Urinary tract infection, site not specified; I11.0 Hypertensive heart disease with heart failure; I50.9 Heart failure, unspecified; I48.91 Unspecified atrial fibrillation; E11.9 Type 2 diabetes mellitus without complications; W18.30XA Fall on same level, unspecified, initial encounter; Z79.899 Other long term (current) drug therapy; Z88.2 Allergy status to sulfonamides; Z91.018 Allergy to other foods; Z88.5 Allergy status to narcotic agent; Z88.8 Allergy status to other drugs, medicaments and biological substances
CPT/HCPCS: 74177; 80053; 81001; 85025; 87077; 87086; 87186; 93005; 93010; 96374; 99284-25; A9270; J1885; P9612; Q9967

== ENCOUNTER 2024-08-31 16:05 | Emergency (ER) | payer MEDICARE ==
[~2024-08-31] VITALS: Ht 152.4 cm; Wt 56.7 kg
[~2024-08-31 16:05] MED LIST changes: +ACET500 PO; +Doxycycline Mo100 M1 PO; +Ibuprofen600 MG PO; +LIDO700A20 TOP
[2024-08-31 17:37] LABS: Source, Urine Fem Cath
[2024-08-31 17:43] LABS: BASOPHILS ABSOLUTE AUTO 0.04 K/mm3 (0.00-0.23); BASOPHILS PERCENT AUTO 1 % (0-2); EOSINOPHILS ABSOLUTE AUTO 0.18 K/mm3 (0.00-0.68); EOSINOPHILS PERCENT AUTO 3 % (0-6); Hematocrit 21.9 % (33.0-51.0); Hemoglobin 6.5 g/dL (11.5-16.0); IMMATURE GRAN ABSOLUTE AUTO 0.07 K/mm3 (0.00-0.10); IMMATURE GRAN PERCENT AUTO 1 % (0-1); LYMPHOCYTES ABSOLUTE AUTO 0.85 K/mm3 (0.84-5.20); LYMPHOCYTES PERCENT AUTO 13 % (21-46); MONOCYTES ABSOLUTE AUTO 0.41 K/mm3 (0.16-1.47); MONOCYTES PERCENT AUTO 6 % (4-13); Mean Corpuscular HGB 25.2 pg (26.0-34.0); Mean Corpuscular HGB Conc 29.7 g/dL (31.5-36.5); Mean Corpuscular Volume 85 fL (80-100); NEUTROPHILS ABSOLUTE AUTO 5.03 K/mm3 (1.96-9.15); NEUTROPHILS PERCENT AUTO 77 % (41-73); RDW Coefficient Variation 17.2 % (11.7-14.2); RDW Standard Deviation 53.9 fL (35.1-46.3); Red Blood Cell Count 2.58 M/mm3 (3.80-5.20); White Blood Cell Count 6.58 K/mm3 (4.00-11.30)
[2024-08-31 17:49] LABS: Albumin, Blood 3.3 g/dL (3.4-5.0); Albumin/Globulin Ratio 0.7 (0.8-1.8); Bilirubin, Total 0.2 mg/dL (0.1-1.0); Bun/Creatinine Ratio 13.6 (12.0-20.0); Creatinine, Blood 2.2 mg/dL (0.40-1.00); Globulin, Blood 4.5 g/dL (2.2-4.0); Potassium, Blood 4.2 mmol/L (3.5-5.5); Total Protein, Blood 7.8 g/dL (6.4-8.2)
[2024-08-31 17:55] LABS: Appearance, Urine Clear (Clear); Bilirubin, Urine Neg (Neg); Blood, Urine 2+ (Neg); Color, Urine Yellow (P-Yellow); Glucose Qualitative, Urine Neg (Neg); Ketones, Urine Neg (Neg); Leukocyte Esterase, Urine Neg (Neg); Nitrite, Urine Neg (Neg); Protein, Urine 3+ (Neg); Urobilinogen, Urine NORM (Normal)
[2024-08-31 18:07] LABS: Bacteria Many /hpf; Squamous Epithelial Cells Few /hpf (Few)
[2024-08-31] MEDS ORDERED: NS 1,000 ML IV SCH (18:20)
[2024-08-31 18:36] LABS: Mean Platelet Volume 9.7 fL (9.1-12.4); Platelet Count 256 K/mm3 (150-400)
[2024-09-01] MEDS ORDERED: FERREX 150150 M1 PO (01:12)
[2024-09-01 01:30] VITALS: BP 188/97
== END 2024-09-01 02:12 | disposition home or self-care (01) ==
LOC: ER 16:05
PROVIDERS: Student in an Organized Health Care Education/Training Program
DX: R55 Syncope and collapse (principal); D64.9 Anemia, unspecified; D50.9 Iron deficiency anemia, unspecified; E11.9 Type 2 diabetes mellitus without complications; I10 Essential (primary) hypertension; Z88.2 Allergy status to sulfonamides; Z88.5 Allergy status to narcotic agent; Z91.048 Other nonmedicinal substance allergy status; Z91.018 Allergy to other foods; Z79.4 Long term (current) use of insulin; Z79.899 Other long term (current) drug therapy; Z96.642 Presence of left artificial hip joint
CPT/HCPCS: 36430; 80053; 81001; 83540; 83550; 83690; 84484; 85025; 86850; 86900; 86901; 86923; 87086; 93005; 93010; 96360; 99284-25; J7030; P9016

== ENCOUNTER → 2024-09-16 | Outpatient (CLI) | payer MEDICARE ==
[~2024-09-16] MED LIST changes: +FERREX 150150 M1 PO
== END | disposition home or self-care (01) ==
LOC: LAB SHORT 12:02 → LAB 12:02
DX: L08.9 Local infection of the skin and subcutaneous tissue, unspecified (principal)
CPT/HCPCS: 87070; 87075; 87077; 87147; 87186; 87205

== ENCOUNTER 2024-12-08 20:18 | Emergency (ER) | payer MEDICARE ==
[~2024-12-08] VITALS: Ht 165.1 cm; Wt 56.7 kg
[2024-12-08 20:56] LABS: BASOPHILS ABSOLUTE AUTO 0.04 K/mm3 (0.00-0.23); BASOPHILS PERCENT AUTO 1 % (0-2); EOSINOPHILS ABSOLUTE AUTO 0.18 K/mm3 (0.00-0.68); EOSINOPHILS PERCENT AUTO 2 % (0-6); Hematocrit 20.6 % (33.0-51.0); Hemoglobin 6.2 g/dL (11.5-16.0); IMMATURE GRAN ABSOLUTE AUTO 0.02 K/mm3 (0.00-0.10); IMMATURE GRAN PERCENT AUTO 0 % (0-1); LYMPHOCYTES ABSOLUTE AUTO 0.97 K/mm3 (0.84-5.20); LYMPHOCYTES PERCENT AUTO 12 % (21-46); MONOCYTES ABSOLUTE AUTO 0.71 K/mm3 (0.16-1.47); MONOCYTES PERCENT AUTO 9 % (4-13); Mean Corpuscular HGB 26.1 pg (26.0-34.0); Mean Corpuscular HGB Conc 30.1 g/dL (31.5-36.5); Mean Corpuscular Volume 87 fL (80-100); Mean Platelet Volume 9.5 fL (9.1-12.4); NEUTROPHILS ABSOLUTE AUTO 5.99 K/mm3 (1.96-9.15); NEUTROPHILS PERCENT AUTO 76 % (41-73); Platelet Count 252 K/mm3 (150-400); RDW Coefficient Variation 14.9 % (11.7-14.2); RDW Standard Deviation 47.4 fL (35.1-46.3); Red Blood Cell Count 2.38 M/mm3 (3.80-5.20); White Blood Cell Count 7.91 K/mm3 (4.00-11.30)
[2024-12-08 21:16] LABS: Albumin, Blood 3.3 g/dL (3.4-5.0); Albumin/Globulin Ratio 0.8 (0.8-1.8); Bilirubin, Total 0.3 mg/dL (0.1-1.0); Bun/Creatinine Ratio 17.4 (12.0-20.0); Calcium, Blood 8.4 mg/dL (8.5-10.1); Creatinine, Blood 2.19 mg/dL (0.40-1.00); Globulin, Blood 4.2 g/dL (2.2-4.0); Potassium, Blood 3.5 mmol/L (3.5-5.5); Total Protein, Blood 7.5 g/dL (6.4-8.2)
[2024-12-08 23:35] VITALS: BP 160/66
== END 2024-12-08 23:35 | disposition home or self-care (01) ==
LOC: ER 20:18
PROVIDERS: Physician Assistant
DX: R25.2 Cramp and spasm (principal); I10 Essential (primary) hypertension; E11.9 Type 2 diabetes mellitus without complications; I48.91 Unspecified atrial fibrillation; Z88.5 Allergy status to narcotic agent; Z88.2 Allergy status to sulfonamides; Z91.011 Allergy to milk products; Z88.8 Allergy status to other drugs, medicaments and biological substances; Z79.4 Long term (current) use of insulin; Z79.899 Other long term (current) drug therapy; Z79.1 Long term (current) use of non-steroidal anti-inflammatories (NSAID); Z79.51 Long term (current) use of inhaled steroids; Z79.2 Long term (current) use of antibiotics; Z79.891 Long term (current) use of opiate analgesic
CPT/HCPCS: 73630; 80053; 85025; 99283-25

== ENCOUNTER 2025-01-26 11:00 | Emergency (ER) | payer MEDICARE ==
[~2025-01-26] VITALS: Ht 152.4 cm; Wt 63.5 kg
[2025-01-26 11:35] LABS: BASOPHILS ABSOLUTE AUTO 0.04 K/mm3 (0.00-0.23); BASOPHILS PERCENT AUTO 1 % (0-2); EOSINOPHILS ABSOLUTE AUTO 0.38 K/mm3 (0.00-0.68); EOSINOPHILS PERCENT AUTO 5 % (0-6); IMMATURE GRAN ABSOLUTE AUTO 0.03 K/mm3 (0.00-0.10); IMMATURE GRAN PERCENT AUTO 0 % (0-1); LYMPHOCYTES ABSOLUTE AUTO 0.92 K/mm3 (0.84-5.20); LYMPHOCYTES PERCENT AUTO 13 % (21-46); MONOCYTES ABSOLUTE AUTO 0.53 K/mm3 (0.16-1.47); MONOCYTES PERCENT AUTO 7 % (4-13); Mean Corpuscular HGB 22.5 pg (26.0-34.0); Mean Corpuscular HGB Conc 28.3 g/dL (31.5-36.5); Mean Corpuscular Volume 79 fL (80-100); Mean Platelet Volume 10.4 fL (9.1-12.4); NEUTROPHILS ABSOLUTE AUTO 5.38 K/mm3 (1.96-9.15); NEUTROPHILS PERCENT AUTO 74 % (41-73); Platelet Count 274 K/mm3 (150-400); RDW Coefficient Variation 16.9 % (11.7-14.2); Red Blood Cell Count 2.27 M/mm3 (3.80-5.20); White Blood Cell Count 7.28 K/mm3 (4.00-11.30)
[2025-01-26 11:36] LABS: Hemoglobin 5.1 g/dL (11.5-16.0)
[2025-01-26] MEDS ORDERED: Pantoprazole Sodium 40 MG Injection IV ONE (11:40)
[2025-01-26 11:44] LABS: Source, Urine Straight Cath
[2025-01-26 11:57] LABS: Appearance, Urine Hazy (Clear); Bilirubin, Urine Neg (Neg); Blood, Urine 1+ (Neg); Color, Urine Yellow (P-Yellow); Glucose Qualitative, Urine Neg (Neg); Ketones, Urine Neg (Neg); Leukocyte Esterase, Urine 1+ (Neg); Nitrite, Urine Pos (Neg); Protein, Urine 3+ (Neg); Specific Gravity, Urine 1.015 (1.003-1.022); Urobilinogen, Urine NORM (Normal)
[2025-01-26 11:59] LABS: Albumin, Blood 3.3 g/dL (3.4-5.0); Albumin/Globulin Ratio 0.8 (0.8-1.8); Bilirubin, Total 0.3 mg/dL (0.1-1.0); Bun/Creatinine Ratio 13.6 (12.0-20.0); Calcium, Blood 8.6 mg/dL (8.5-10.1); Creatinine, Blood 2.2 mg/dL (0.40-1.00); Potassium, Blood 3.6 mmol/L (3.5-5.5); Total Protein, Blood 7.3 g/dL (6.4-8.2)
[2025-01-26 12:10] LABS: White Blood Cells, Urine 25-50 /hpf (0-5)
[2025-01-26 12:11] LABS: Bacteria Many /hpf; Red Blood Cells, Urine 0-2 /hpf (0-2); Squamous Epithelial Cells Rare /hpf (Few)
[2025-01-26] MEDS ORDERED: Pantoprazole Sodium 40 MG in NS 50 ML IV SCH (12:20)
[2025-01-26] MEDS ORDERED: CefTRIAXone Sodium 1,000 MG in NS 100 ML IV ONE (12:25)
[2025-01-26] MEDS ORDERED: NS 1,000 ML IV ONE (12:47)
[2025-01-26 15:04] VITALS: BP 146/83
== END 2025-01-26 15:05 | disposition home or self-care (01) ==
LOC: ER 11:00
PROVIDERS: Emergency Medicine
DX: D64.9 Anemia, unspecified (principal); E11.22 Type 2 diabetes mellitus with diabetic chronic kidney disease; N18.9 Chronic kidney disease, unspecified; I48.91 Unspecified atrial fibrillation; N39.0 Urinary tract infection, site not specified; I12.9 Hypertensive chronic kidney disease with stage 1 through stage 4 chronic kidney disease, or unspecified chronic kidney disease; Z87.891 Personal history of nicotine dependence; Z79.899 Other long term (current) drug therapy; Z79.4 Long term (current) use of insulin; Z88.2 Allergy status to sulfonamides; Z91.018 Allergy to other foods; Z88.5 Allergy status to narcotic agent; Z88.8 Allergy status to other drugs, medicaments and biological substances
CPT/HCPCS: 36430; 51701; 80053; 81001; 82272; 85025; 86850; 86900; 86901; 86923; 87077; 87086; 87186; 93005; 93010; 96365; 96367; 96376; 99285-25; J0696; J2470; J7030; P9016

== ENCOUNTER 2025-05-10 17:34 | Emergency (ER) | payer MEDICARE ==
[~2025-05-10] VITALS: Ht 152.4 cm; Wt 54.4 kg
[2025-05-10 19:20] LABS: BASOPHILS ABSOLUTE AUTO 0.06 K/mm3 (0.00-0.23); BASOPHILS PERCENT AUTO 1 % (0-2); EOSINOPHILS ABSOLUTE AUTO 0.21 K/mm3 (0.00-0.68); EOSINOPHILS PERCENT AUTO 3 % (0-6); Hematocrit 22.1 % (33.0-51.0); Hemoglobin 6.2 g/dL (11.5-16.0); IMMATURE GRAN ABSOLUTE AUTO 0.04 K/mm3 (0.00-0.10); IMMATURE GRAN PERCENT AUTO 1 % (0-1); LYMPHOCYTES ABSOLUTE AUTO 0.98 K/mm3 (0.84-5.20); LYMPHOCYTES PERCENT AUTO 13 % (21-46); MONOCYTES ABSOLUTE AUTO 0.70 K/mm3 (0.16-1.47); MONOCYTES PERCENT AUTO 10 % (4-13); Mean Corpuscular HGB Conc 28.1 g/dL (31.5-36.5); Mean Corpuscular Volume 85 fL (80-100); NEUTROPHILS ABSOLUTE AUTO 5.34 K/mm3 (1.96-9.15); NEUTROPHILS PERCENT AUTO 73 % (41-73); NRBC ABSOLUTE 0.02 K/mm3 (0.00-0.02); NRBC Auto 0.3 /100 WBC (0.0-0.2); Platelet Count 250 K/mm3 (150-400); RDW Coefficient Variation 17.2 % (11.7-14.2); RDW Standard Deviation 53.2 fL (35.1-46.3)
[2025-05-10 19:46] LABS: Alanine Aminotransfer (ALT/SGP 10.0 U/L (12-78); Albumin, Blood 2.9 g/dL (3.4-5.0); Albumin/Globulin Ratio 0.7 (0.8-1.8); Anion Gap 5.0 mmol/L (3-11); Aspartate Aminotrans (AST/SGOT 12.0 U/L (12-37); Bilirubin, Total 0.2 mg/dL (0.1-1.0); Blood Urea Nitrogen 28.0 mg/dL (8-24); CO2, Blood 17.0 mmol/L (21-32); Calcium, Blood 8.2 mg/dL (8.5-10.1); Chloride, Blood 116.0 mmol/L (98-108); Creatinine, Blood 2.68 mg/dL (0.40-1.00); Globulin, Blood 4.1 g/dL (2.2-4.0); Glucose, Blood 109.0 mg/dL (70-99); Potassium, Blood 3.3 mmol/L (3.5-5.5); Sodium, Blood 135.0 mmol/L (136-145); Total Protein, Blood 7.0 g/dL (6.4-8.2)
[2025-05-11] MEDS ORDERED: NS 1,000 ML IV ONE (00:46)
[2025-05-11 03:15] VITALS: BP 154/77
== END 2025-05-11 06:15 | disposition home or self-care (01) ==
LOC: ER 17:34
PROVIDERS: Student in an Organized Health Care Education/Training Program
DX: D50.9 Iron deficiency anemia, unspecified (principal); E11.9 Type 2 diabetes mellitus without complications; I10 Essential (primary) hypertension; I48.91 Unspecified atrial fibrillation; Z88.5 Allergy status to narcotic agent; Z88.2 Allergy status to sulfonamides; Z91.018 Allergy to other foods; Z88.8 Allergy status to other drugs, medicaments and biological substances
CPT/HCPCS: 71046; 80053; 83880; 84484; 85025; J7030

== ENCOUNTER 2025-08-02 19:52 | Emergency (ER) | payer MEDICARE ==
[~2025-08-02] VITALS: Ht 152.4 cm; Wt 56.7 kg
[2025-08-02 21:25] LABS: BASOPHILS ABSOLUTE AUTO 0.04 K/mm3 (0.00-0.23); BASOPHILS PERCENT AUTO 1 % (0-2); EOSINOPHILS ABSOLUTE AUTO 0.42 K/mm3 (0.00-0.68); EOSINOPHILS PERCENT AUTO 6 % (0-6); Hematocrit 19.5 % (33.0-51.0); Hemoglobin 6.0 g/dL (11.5-16.0); IMMATURE GRAN ABSOLUTE AUTO 0.04 K/mm3 (0.00-0.10); IMMATURE GRAN PERCENT AUTO 1 % (0-1); LYMPHOCYTES ABSOLUTE AUTO 0.99 K/mm3 (0.84-5.20); LYMPHOCYTES PERCENT AUTO 13 % (21-46); MONOCYTES ABSOLUTE AUTO 0.75 K/mm3 (0.16-1.47); MONOCYTES PERCENT AUTO 10 % (4-13); Mean Corpuscular HGB Conc 30.8 g/dL (31.5-36.5); Mean Corpuscular Volume 90 fL (80-100); NEUTROPHILS ABSOLUTE AUTO 5.39 K/mm3 (1.96-9.15); NEUTROPHILS PERCENT AUTO 71 % (41-73); NRBC ABSOLUTE 0.00 K/mm3 (0.00-0.02); NRBC Auto 0.0 /100 WBC (0.0-0.2); Platelet Count 221 K/mm3 (150-400); RDW Coefficient Variation 17.0 % (11.7-14.2); RDW Standard Deviation 56.3 fL (35.1-46.3)
[2025-08-02 21:44] LABS: Alanine Aminotransfer (ALT/SGP 9.0 U/L (12-78); Albumin, Blood 3.2 g/dL (3.4-5.0); Albumin/Globulin Ratio 0.9 (0.8-1.8); Anion Gap 10.0 mmol/L (3-11); Aspartate Aminotrans (AST/SGOT 9.0 U/L (12-37); Bilirubin, Total 0.2 mg/dL (0.1-1.0); Blood Urea Nitrogen 34.0 mg/dL (8-24); CO2, Blood 18.0 mmol/L (21-32); Calcium, Blood 8.0 mg/dL (8.5-10.1); Chloride, Blood 116.0 mmol/L (98-108); Creatinine, Blood 2.4 mg/dL (0.40-1.00); Globulin, Blood 3.4 g/dL (2.2-4.0); Glucose, Blood 124.0 mg/dL (70-99); Potassium, Blood 3.6 mmol/L (3.5-5.5); Sodium, Blood 140.0 mmol/L (136-145); Total Protein, Blood 6.6 g/dL (6.4-8.2)
[2025-08-03] MEDS ORDERED: NS 1,000 ML IV ONE (01:10)
[2025-08-03] MEDS ORDERED: NS 1,000 ML IV SCH (02:25)
[2025-08-03 05:07] LABS: Source, Urine Clean Catch
[2025-08-03 05:09] LABS: Bilirubin, Urine Neg (Neg); Color, Urine Yellow (P-Yellow); Glucose Qualitative, Urine Neg (Neg); Ketones, Urine Neg (Neg); Leukocyte Esterase, Urine 3+ (Neg); Protein, Urine 3+ (Neg); Specific Gravity, Urine 1.015 (1.003-1.022); Urobilinogen, Urine NORM (Normal)
[2025-08-03 05:34] LABS: Red Blood Cells, Urine 0-2 /hpf (0-2)
[2025-08-03] MEDS ORDERED: CEPH500 PO (05:34)
[2025-08-03 05:39] VITALS: BP 190/85
== END 2025-08-03 05:39 | disposition home or self-care (01) ==
LOC: ER 19:52
PROVIDERS: Physician Assistant
DX: D64.9 Anemia, unspecified (principal); N39.0 Urinary tract infection, site not specified; I48.91 Unspecified atrial fibrillation; I13.0 Hypertensive heart and chronic kidney disease with heart failure and stage 1 through stage 4 chronic kidney disease, or unspecified chronic kidney disease; E11.22 Type 2 diabetes mellitus with diabetic chronic kidney disease; I50.32 Chronic diastolic (congestive) heart failure; N18.30 Chronic kidney disease, stage 3 unspecified; Z87.891 Personal history of nicotine dependence; Z88.2 Allergy status to sulfonamides; Z88.5 Allergy status to narcotic agent; Z91.018 Allergy to other foods; Z88.8 Allergy status to other drugs, medicaments and biological substances
CPT/HCPCS: 36430; 71046; 80053; 81001; 83880; 84484; 85025; 86850; 86900; 86901; 86923; 87077; 87086; 87186; 93005; 93010; 99285-25; J7030; P9016

== ENCOUNTER 2025-08-04 19:35 | Emergency (ER) | payer MEDICARE ==
[~2025-08-04] VITALS: Ht 152.4 cm; Wt 56.7 kg
[2025-08-04 20:32] LABS: BASOPHILS ABSOLUTE AUTO 0.04 K/mm3 (0.00-0.23); BASOPHILS PERCENT AUTO 1 % (0-2); EOSINOPHILS ABSOLUTE AUTO 0.45 K/mm3 (0.00-0.68); EOSINOPHILS PERCENT AUTO 7 % (0-6); Hematocrit 21.4 % (33.0-51.0); Hemoglobin 6.6 g/dL (11.5-16.0); IMMATURE GRAN ABSOLUTE AUTO 0.03 K/mm3 (0.00-0.10); IMMATURE GRAN PERCENT AUTO 1 % (0-1); LYMPHOCYTES ABSOLUTE AUTO 1.06 K/mm3 (0.84-5.20); LYMPHOCYTES PERCENT AUTO 16 % (21-46); MONOCYTES ABSOLUTE AUTO 0.79 K/mm3 (0.16-1.47); MONOCYTES PERCENT AUTO 12 % (4-13); Mean Corpuscular HGB Conc 30.8 g/dL (31.5-36.5); Mean Corpuscular Volume 90 fL (80-100); NEUTROPHILS ABSOLUTE AUTO 4.12 K/mm3 (1.96-9.15); NEUTROPHILS PERCENT AUTO 64 % (41-73); NRBC ABSOLUTE 0.00 K/mm3 (0.00-0.02); NRBC Auto 0.0 /100 WBC (0.0-0.2); Platelet Count 222 K/mm3 (150-400); RDW Coefficient Variation 17.1 % (11.7-14.2); RDW Standard Deviation 55.9 fL (35.1-46.3)
[2025-08-04 20:50] LABS: Alanine Aminotransfer (ALT/SGP 11.0 U/L (12-78); Albumin, Blood 3.1 g/dL (3.4-5.0); Albumin/Globulin Ratio 0.9 (0.8-1.8); Anion Gap 9.0 mmol/L (3-11); Aspartate Aminotrans (AST/SGOT 12.0 U/L (12-37); Bilirubin, Total 0.2 mg/dL (0.1-1.0); Blood Urea Nitrogen 36.0 mg/dL (8-24); CO2, Blood 19.0 mmol/L (21-32); Calcium, Blood 8.1 mg/dL (8.5-10.1); Chloride, Blood 117.0 mmol/L (98-108); Creatinine, Blood 2.39 mg/dL (0.40-1.00); Globulin, Blood 3.3 g/dL (2.2-4.0); Glucose, Blood 110.0 mg/dL (70-99); Potassium, Blood 3.8 mmol/L (3.5-5.5); Sodium, Blood 141.0 mmol/L (136-145); Total Protein, Blood 6.4 g/dL (6.4-8.2)
[2025-08-04 23:18] LABS: Prothrombin Time Results 11.4 Sec (9.7-11.5)
[2025-08-05] MEDS ORDERED: NS 1,000 ML IV SCH (00:05)
[2025-08-05 03:30] VITALS: BP 164/87
== END 2025-08-05 03:30 | disposition home or self-care (01) ==
LOC: ER 19:35
PROVIDERS: Emergency Medicine
DX: D64.9 Anemia, unspecified (principal); I13.0 Hypertensive heart and chronic kidney disease with heart failure and stage 1 through stage 4 chronic kidney disease, or unspecified chronic kidney disease; E11.22 Type 2 diabetes mellitus with diabetic chronic kidney disease; N18.9 Chronic kidney disease, unspecified; I50.32 Chronic diastolic (congestive) heart failure; N39.0 Urinary tract infection, site not specified; I48.91 Unspecified atrial fibrillation; Z87.891 Personal history of nicotine dependence; Z88.5 Allergy status to narcotic agent; Z88.2 Allergy status to sulfonamides; Z91.018 Allergy to other foods; Z88.8 Allergy status to other drugs, medicaments and biological substances; Z79.2 Long term (current) use of antibiotics
CPT/HCPCS: 36430; 80053; 85025; 85610; 86850; 86900; 86901; 86923; 93005; 93010; 99285-25; J7030; P9016

== ENCOUNTER 2025-08-23 12:18 | Inpatient (IN) | payer MEDICARE ==
[~2025-08-23] VITALS: Ht 152.4 cm; Wt 54.1 kg
[2025-08-23 16:03] LABS: Alanine Aminotransfer (ALT/SGP 13.0 U/L (12-78); Albumin, Blood 3.2 g/dL (3.4-5.0); Albumin/Globulin Ratio 0.8 (0.8-1.8); Anion Gap 10.0 mmol/L (3-11); Aspartate Aminotrans (AST/SGOT 15.0 U/L (12-37); Bilirubin, Total 0.4 mg/dL (0.1-1.0); Blood Urea Nitrogen 31.0 mg/dL (8-24); CO2, Blood 20.0 mmol/L (21-32); Calcium, Blood 8.4 mg/dL (8.5-10.1); Chloride, Blood 112.0 mmol/L (98-108); Creatinine, Blood 2.41 mg/dL (0.40-1.00); Globulin, Blood 3.8 g/dL (2.2-4.0); Glucose, Blood 106.0 mg/dL (70-99); Potassium, Blood 3.5 mmol/L (3.5-5.5); Sodium, Blood 138.0 mmol/L (136-145); Total Protein, Blood 7.0 g/dL (6.4-8.2)
[2025-08-23 16:12] LABS: BASOPHILS ABSOLUTE AUTO 0.04 K/mm3 (0.00-0.23); BASOPHILS PERCENT AUTO 1 % (0-2); EOSINOPHILS ABSOLUTE AUTO 0.27 K/mm3 (0.00-0.68); EOSINOPHILS PERCENT AUTO 4 % (0-6); Hematocrit 22.3 % (33.0-51.0); Hemoglobin 6.9 g/dL (11.5-16.0); IMMATURE GRAN ABSOLUTE AUTO 0.06 K/mm3 (0.00-0.10); IMMATURE GRAN PERCENT AUTO 1 % (0-1); LYMPHOCYTES ABSOLUTE AUTO 0.86 K/mm3 (0.84-5.20); LYMPHOCYTES PERCENT AUTO 11 % (21-46); MONOCYTES ABSOLUTE AUTO 0.95 K/mm3 (0.16-1.47); MONOCYTES PERCENT AUTO 12 % (4-13); Mean Corpuscular HGB Conc 30.9 g/dL (31.5-36.5); Mean Corpuscular Volume 90 fL (80-100); NEUTROPHILS ABSOLUTE AUTO 5.59 K/mm3 (1.96-9.15); NEUTROPHILS PERCENT AUTO 72 % (41-73); NRBC ABSOLUTE 0.00 K/mm3 (0.00-0.02); NRBC Auto 0.0 /100 WBC (0.0-0.2); Platelet Count 243 K/mm3 (150-400); RDW Coefficient Variation 15.2 % (11.7-14.2); RDW Standard Deviation 49.2 fL (35.1-46.3)
[2025-08-23] MEDS ORDERED: Morphine Sulfate 4 MG/1 ML Injection IV ONE (16:50)
[2025-08-23] MEDS ORDERED: NS 1,000 ML IV SCH ×2 (17:30→18:35)
[2025-08-23] MEDS ORDERED: Ondansetron HCl 2 MG / ML 2ML Vial IV PRN (20:20)
[2025-08-23] MEDS ORDERED: Labetalol HCL 5 MG/ML 4ML Injection (Single Dose) IV PRN (20:25)
[2025-08-23] MEDS ORDERED: FLU VACC TS2025(65UP)/MF59C/PF 45 MCG/0.5 ML SYRINGE IM SCH (20:30)
[2025-08-23] MEDS ORDERED: Metoprolol Tartrate 1 MG/ML 5 ML VIAL IV PRN (20:30)
[2025-08-23] MEDS ORDERED: Pantoprazole Sodium 40 MG Injection IV ONE (21:00)
[2025-08-23 21:48] VITALS: BP 179/92
--- NOTE | 2025-08-23 23:21 | NUR ---
NEW ADMIT FOR 08/23/25 REPORT WAS RECEIVED FROM THE ER. PT ARRIVED ON A GURNEY TO ROOM PCU4 AROUND 2100. PT WAS ABLE TO GET UP AND TRANSFER TO THE BED WITH 2 PERSON ASSIST AND WALKER. PT ALERT ORIENTED X 4 ABLE TO VERBALIZE NEEDS. SHE WAS INCONTINENT OF URINE AND A PUREWICK WAS APPLIED. C/O CHEST DISCOMFORT AND BACK PAIN. SHE WAS PUT ON TELE AND IS AFIB IN THE 90S. BP IS SLIGHTLY ELEVATED OTHER VSS ON RA SATTING >95%. BED IN LOW POSITION CALL LIGHT IN REACH
[2025-08-24] VITALS (8 sets, daily range): BP systolic 121–176; BP diastolic 63–97
[2025-08-24 03:11] LABS: Source, Urine Clean Catch
--- NOTE | 2025-08-24 03:15 | NUR ---
SHIFT SUMMARY: PT WAS A NEW ADMIT FROM THE ER THIS SHIFT WITH A DX OF CHF EXAC, MELENA AND IRON DEFICIENCY ANEMIA. PT IS A&OX4, BUT HAS BEEN VERY DROWSY OFTEN DRIFTING OFF WHEN BEING TALKED TO. KEPT TURNED AND REPOSITIONED Q2HR. BP HAS BEEN SLIGHTLY HIGH AT 179/92 BUT OTHER VITAL SIGNS STABLE ON RA SATS >95%. AFIB IN THE 90 S. REQUIRES 2 PERSON TRANSFER WITH WALKER. TOLERATING A CLEAR LIQUID DIET. REFUSED TO TAKE THE STOOL SOFTENERS. SHE STATED SHE HAD A BM YESTERDAY. SHE HAS A PUREWICK ON DUE TO HER INCONTINENCE. SHES VOIDING WELL THIS SHIFT. A URINE WAS SENT. SHE IS C/O CHEST DISCOMFORT. HER TROPS WERE 471 AND 402. SHE GOT MORPHINE IN THE ER. HER HGB IN ED WAS 6.9 AND SHE RECEIVED 1 UNIT OF PRBC. WILL BE RECHECKED IN THE AM. . BED IN LOWEST POSITION, CALL LIGHT WITHIN REACH. CALLS APPROPRIATELY AND IS ABLE TO ADVOCATE NEEDS EFFECTIVELY.
[2025-08-24 03:21] LABS: Bilirubin, Urine Neg (Neg); Glucose Qualitative, Urine Neg (Neg); Ketones, Urine Neg (Neg); Leukocyte Esterase, Urine 3+ (Neg); Protein, Urine 2+ (Neg); Specific Gravity, Urine 1.010 (1.003-1.022); Urobilinogen, Urine NORM (Normal)
[2025-08-24 03:31] LABS: Color, Urine Pale Yellow (P-Yellow)
[2025-08-24 03:32] LABS: Red Blood Cells, Urine 0-2 /hpf (0-2); White Blood Cells, Urine 25-50 /hpf (0-5)
[2025-08-24 04:06] LABS: Hematocrit 27.3 % (33.0-51.0); Hemoglobin 8.4 g/dL (11.5-16.0); Mean Corpuscular HGB Conc 30.8 g/dL (31.5-36.5); Mean Corpuscular Volume 91 fL (80-100); NRBC ABSOLUTE 0.00 K/mm3 (0.00-0.02); NRBC Auto 0.0 /100 WBC (0.0-0.2); Platelet Count 224 K/mm3 (150-400); RDW Coefficient Variation 15.6 % (11.7-14.2); RDW Standard Deviation 51.8 fL (35.1-46.3)
[2025-08-24 04:21] LABS: Anion Gap 10 mmol/L (3-11); Blood Urea Nitrogen 30 mg/dL (8-24); CHOL/HDL RATIO 2.4; CO2, Blood 19 mmol/L (21-32); Calcium, Blood 8.2 mg/dL (8.5-10.1); Chloride, Blood 112 mmol/L (98-108); Cholesterol 127 mg/dL (50-200); Creatinine, Blood 2.32 mg/dL (0.40-1.00); Glucose, Blood 93 mg/dL (70-99); HDL Cholesterol 52 mg/dL (>39); LDL/HDL RATIO 1.3; Low Density Lipoprotein Chol 66 mg/dL (0-110); Magnesium, Blood 2.2 mg/dL (1.6-2.4); Potassium, Blood 3.6 mmol/L (3.5-5.5); Sodium, Blood 137 mmol/L (136-145); Triglycerides 43 mg/dL (30-160); Very Low Density Lipoprot Chol 8 mg/dL (6-32)
[2025-08-24] MEDS ORDERED: Pantoprazole Sodium 40 MG Injection IV SCH (06:00)
[2025-08-24] MEDS ORDERED: Miconazole Nitrate 2% 85 GM PWD TOP PRN (09:35)
--- NOTE | 2025-08-24 17:56 | NUR ---
PT IS A&Ox4 AND ABLE TO MAKE NEEDS KNOWN. SHE IS ON RA W/O2 SATS > 92%. SHE HAS A PUREWICK IN PLACE. AND IS A X1 ASSIST FOR AMBULATION W/FWW. NO NEEDS OR CONCERNS NOTED @ THIS TIME. BED IN LOW POSITION, CALL LIGHT AND PERSONAL BELONGINGS IN REACH.
--- NOTE | 2025-08-25 03:35 | NUR ---
SHIFT SUMMARY: PT IS A&OX4, ABLE TO VERBALIZE NEEDS AND CALLS APPROPRITALY. ABLE TO TURN HERSELF IN BED. VITAL SIGNS STABLE ON RA SATS >95%. AFIB IN THE 80 S WITH BBB. REQUIRES 2 PERSON TRANSFER WITH WALKER. HASN'T BEEN OUT OF BED. SHE HAS PT/OT ORDERS. TOLERATING A CLEAR LIQUID DIET. SHES WATER AND ICE CHIPS ONLY THEN NPO AT [facility] FOR A EGD TODAY. ABLE TO TAKE MEDS WHOLE WITH WATER. SHE HAS A PUREWICK PLACED DO TO HER INCONTINENCE. SHE'S VOIDING WELL THIS SHIFT. NO C/O CHEST DISCOMFORT. HER HGB A1C WAS 4.9. DCED HER CBG. SHES ON STRICT I&OS. BED IN LOWEST POSITION, CALL LIGHT WITHIN REACH. CALLS APPROPRIATELY AND IS ABLE TO ADVOCATE NEEDS EFFECTIVELY. REMAINS ON CONTACT ISOLATION FOR MRSA IN URINE.
[2025-08-25 04:12] VITALS: BP 128/67
[2025-08-25 05:34] LABS: BASOPHILS ABSOLUTE AUTO 0.03 K/mm3 (0.00-0.23); BASOPHILS PERCENT AUTO 0 % (0-2); EOSINOPHILS ABSOLUTE AUTO 0.63 K/mm3 (0.00-0.68); EOSINOPHILS PERCENT AUTO 9 % (0-6); Hematocrit 27.0 % (33.0-51.0); Hemoglobin 8.6 g/dL (11.5-16.0); IMMATURE GRAN ABSOLUTE AUTO 0.03 K/mm3 (0.00-0.10); IMMATURE GRAN PERCENT AUTO 0 % (0-1); LYMPHOCYTES ABSOLUTE AUTO 0.93 K/mm3 (0.84-5.20); LYMPHOCYTES PERCENT AUTO 13 % (21-46); MONOCYTES ABSOLUTE AUTO 0.83 K/mm3 (0.16-1.47); MONOCYTES PERCENT AUTO 12 % (4-13); Mean Corpuscular HGB Conc 31.9 g/dL (31.5-36.5); Mean Corpuscular Volume 89 fL (80-100); NEUTROPHILS ABSOLUTE AUTO 4.65 K/mm3 (1.96-9.15); NEUTROPHILS PERCENT AUTO 66 % (41-73); NRBC ABSOLUTE 0.00 K/mm3 (0.00-0.02); NRBC Auto 0.0 /100 WBC (0.0-0.2); Platelet Count 242 K/mm3 (150-400); RDW Coefficient Variation 15.8 % (11.7-14.2); RDW Standard Deviation 50.5 fL (35.1-46.3)
[2025-08-25 05:51] LABS: Anion Gap 10.0 mmol/L (3-11); Blood Urea Nitrogen 37.0 mg/dL (8-24); CO2, Blood 22.0 mmol/L (21-32); Calcium, Blood 8.1 mg/dL (8.5-10.1); Chloride, Blood 107.0 mmol/L (98-108); Creatinine, Blood 2.71 mg/dL (0.40-1.00); Glucose, Blood 83.0 mg/dL (70-99); Potassium, Blood 3.1 mmol/L (3.5-5.5); Sodium, Blood 136.0 mmol/L (136-145)
[2025-08-25 09:06] VITALS: BP 151/76
[2025-08-25 13:59] VITALS: BP 131/77
[2025-08-25] MEDS ORDERED: NS 500 ML IV SCH (14:00)
--- NOTE | 2025-08-25 14:09 | NUR ---
History, Chart, Medications and Allergies reviewed before start of procedure. Patient confirms NPO status and agrees with scheduled surgery. Pre-Op teaching done. Pt verbalizes understanding. LUNGS FAINT CRACKLES IN BASES
--- NOTE | 2025-08-25 14:33 | NUR ---
PT JEWELRY PRIOR TO PROCEDURE PT REMOVED SEVERAL PIECES OF JEWELRY INCLUDING TWO GOLD COLORED RINGS, SILVER COLORED NECKLACE, GOLD COLORED BRACELET AND A BLACK WATCH. ALL JEWELRY PLACED IN CLOSED CLEAR BAG WITH A PT DELIMER IT. JEWELRY TAKEN BACK TO PCU AND GIVEN TO FALGUNI Ford RN WHO LOCKED THEM UP IN PT LOCK BOX OUTSIDE PCU 4. PT AWARE OF LOCTION OF THE JEWELRY.
--- NOTE | 2025-08-25 15:26 | NUR ---
08/25/25 1526 Mihir Mullins MONITOR INTACT WITH CONTINUOUS PULSE OXIMETRY, CONTINUOUS END TITAL CO2, 3-LEAD EKG AND INTERMITTENT BLOOD PRESSURE. 3-LEAD EKG REVIEWED WITH PHYSICIAN PRIOR TO START OF PROCEDURE. O2 VIA POM INTACT THROUGHOUT SEDATION/PROCEDURE. Bite Block Placed AT START OF PROCEDURE.
[2025-08-25 16:16] VITALS: BP 139/75
--- NOTE | 2025-08-25 18:17 | NUR ---
SHIFT SUMMARY PATIENT IS AOX4 ABLE TO MAKE NEEDS KNOWN SHE DENIES CP OR SOB. HER VITALS ARE STABLE ON ROOM AIR. SHE IS POST EGD AND IS TOLERATING HER MEALS. VOIDING IN THE PUREWICK SHE IS A 2 PERSON ASSIST STAND AND PIVOT.
[2025-08-25 19:17] VITALS: BP 138/72
[2025-08-25 20:00] VITALS: BP 155/66
--- NOTE | 2025-08-26 00:55 | NUR ---
REPORT GIVEN TO BILLY ZIMMERMAN ON MEDICAL FLOOR. PATIENT TRANSPORTED VIA BED ON ROOM AIR BY THIS RN AND SUNSHINE ROD WITHOUT INCIDENT. PATIENT A/OX4 NO APPARENT DISTRESS.
--- NOTE | 2025-08-26 01:03 | NUR ---
TRANSFER NOTE: PT IS A PCU TRANSFER AND ARRIVED ON VIA BED WITH PCU TECH AND NURSE. PT HAS PUREWIC IN PLACE. PT HAS CALL LIGHT IN REACH.
[2025-08-26 01:07] VITALS: BP 128/71
[2025-08-26 03:58] VITALS: BP 143/76
--- NOTE | 2025-08-26 04:24 | NUR ---
SHIFT SUMMARY: PT IS AOX4 AND WAS A PCU TRANSFER THIS EVENING. PT Q2 TURNED AND PURWIC IN PLACE. PT SLEPT MOST OF THE NIGHT. NO ACUTE CHANGES
[2025-08-26 04:45] LABS: BASOPHILS ABSOLUTE AUTO 0.04 K/mm3 (0.00-0.23); BASOPHILS PERCENT AUTO 1 % (0-2); EOSINOPHILS ABSOLUTE AUTO 0.56 K/mm3 (0.00-0.68); EOSINOPHILS PERCENT AUTO 9 % (0-6); Hematocrit 30.9 % (33.0-51.0); Hemoglobin 9.7 g/dL (11.5-16.0); IMMATURE GRAN ABSOLUTE AUTO 0.02 K/mm3 (0.00-0.10); IMMATURE GRAN PERCENT AUTO 0 % (0-1); LYMPHOCYTES ABSOLUTE AUTO 0.77 K/mm3 (0.84-5.20); LYMPHOCYTES PERCENT AUTO 12 % (21-46); MONOCYTES ABSOLUTE AUTO 0.75 K/mm3 (0.16-1.47); MONOCYTES PERCENT AUTO 12 % (4-13); Mean Corpuscular HGB Conc 31.4 g/dL (31.5-36.5); Mean Corpuscular Volume 89 fL (80-100); NEUTROPHILS ABSOLUTE AUTO 4.35 K/mm3 (1.96-9.15); NEUTROPHILS PERCENT AUTO 67 % (41-73); NRBC ABSOLUTE 0.00 K/mm3 (0.00-0.02); NRBC Auto 0.0 /100 WBC (0.0-0.2); Platelet Count 281 K/mm3 (150-400); RDW Coefficient Variation 15.8 % (11.7-14.2); RDW Standard Deviation 51.5 fL (35.1-46.3)
[2025-08-26 05:10] LABS: Anion Gap 12.0 mmol/L (3-11); Blood Urea Nitrogen 46.0 mg/dL (8-24); CO2, Blood 20.0 mmol/L (21-32); Calcium, Blood 8.1 mg/dL (8.5-10.1); Chloride, Blood 107.0 mmol/L (98-108); Creatinine, Blood 3.15 mg/dL (0.40-1.00); Glucose, Blood 90.0 mg/dL (70-99); Potassium, Blood 3.6 mmol/L (3.5-5.5); Sodium, Blood 135.0 mmol/L (136-145)
[2025-08-26 08:03] VITALS: BP 143/79
[2025-08-26] MEDS ORDERED: NS 500 ML IV SCH (11:20)
--- NOTE | 2025-08-26 11:21 | NUR ---
DR KEITH ROUNDED, PATIENT TO STAY ANOTHER NIGHT FOR WORSENING KIDNEY FUNCTIONS, CALL LIGHT WITH IN REACH, WORKED WITH PT TODAY, PATIENT MORE WEAK TODAY THAN COMPARED TO YESTERDAY
[2025-08-26 15:59] VITALS: BP 146/63
--- NOTE | 2025-08-26 18:17 | NUR ---
NO ACUTE CHANGES, KIDNEY VALUES DECREASED, PATIENT STAYING FOR 500 ML IV FLUIDS, RE EVAL KIDNEY VALUES IN AM, PATIENT MORE WEAK TODAY AND DIZZY WITH MOVEMENT, MINIMAL CONFUSION THIS AFTERNOON, FAMILY VISITED, CALL LIGHT WITH IN REACH, WILL RELAY TO PM RN
[2025-08-26 19:35] VITALS: BP 154/78
[2025-08-27 05:19] VITALS: BP 143/78
--- NOTE | 2025-08-27 06:58 | NUR ---
SHIFT SUMMARY: Pt is admitted for CHF exacerbation and is a DNR. is alert and able to make needs known. ADLs have been 1-2 depending on activity. On ISO for MRSA in urine. Pure wick in place and draining clear yellow urine. Denies pain or discomfort when asked.
[2025-08-27 07:39] VITALS: BP 147/83
[2025-08-27 07:42] LABS: BASOPHILS ABSOLUTE AUTO 0.02 K/mm3 (0.00-0.23); BASOPHILS PERCENT AUTO 0 % (0-2); EOSINOPHILS ABSOLUTE AUTO 0.65 K/mm3 (0.00-0.68); EOSINOPHILS PERCENT AUTO 11 % (0-6); Hematocrit 33.8 % (33.0-51.0); Hemoglobin 10.5 g/dL (11.5-16.0); IMMATURE GRAN ABSOLUTE AUTO 0.03 K/mm3 (0.00-0.10); IMMATURE GRAN PERCENT AUTO 1 % (0-1); LYMPHOCYTES ABSOLUTE AUTO 0.74 K/mm3 (0.84-5.20); LYMPHOCYTES PERCENT AUTO 12 % (21-46); MONOCYTES ABSOLUTE AUTO 0.66 K/mm3 (0.16-1.47); MONOCYTES PERCENT AUTO 11 % (4-13); Mean Corpuscular HGB Conc 31.1 g/dL (31.5-36.5); Mean Corpuscular Volume 90 fL (80-100); NEUTROPHILS ABSOLUTE AUTO 4.10 K/mm3 (1.96-9.15); NEUTROPHILS PERCENT AUTO 66 % (41-73); NRBC ABSOLUTE 0.00 K/mm3 (0.00-0.02); NRBC Auto 0.0 /100 WBC (0.0-0.2); Platelet Count 269 K/mm3 (150-400); RDW Coefficient Variation 15.6 % (11.7-14.2); RDW Standard Deviation 51.3 fL (35.1-46.3)
[2025-08-27 07:51] LABS: Albumin, Blood 3.2 g/dL (3.4-5.0); Anion Gap 11 mmol/L (3-11); Blood Urea Nitrogen 43 mg/dL (8-24); CO2, Blood 23 mmol/L (21-32); Calcium, Blood 8.5 mg/dL (8.5-10.1); Chloride, Blood 108 mmol/L (98-108); Creatinine, Blood 3.04 mg/dL (0.40-1.00); Ferritin, Serum 31 ng/mL (8-252); Glucose, Blood 86 mg/dL (70-99); Phosphorus, Blood 3.4 mg/dL (2.5-4.9); Potassium, Blood 3.5 mmol/L (3.5-5.5); Sodium, Blood 138 mmol/L (136-145); Total Iron Binding Capacity 332 ug/dL (250-450)
[2025-08-27] MEDS ORDERED: NS 500 ML IV SCH (08:45)
[2025-08-27] MEDS ORDERED: Sod Ferric Gluc Complx/Sucrose 125 MG in NS 100 ML IV ONE (08:45)
[2025-08-27 13:44] LABS: Anion Gap 10.0 mmol/L (3-11); Blood Urea Nitrogen 43.0 mg/dL (8-24); CO2, Blood 21.0 mmol/L (21-32); Calcium, Blood 8.1 mg/dL (8.5-10.1); Chloride, Blood 109.0 mmol/L (98-108); Creatinine, Blood 2.86 mg/dL (0.40-1.00); Glucose, Blood 113.0 mg/dL (70-99); Potassium, Blood 3.6 mmol/L (3.5-5.5); Sodium, Blood 136.0 mmol/L (136-145)
--- NOTE | 2025-08-27 16:17 | NUR ---
PATIENT TO BE TRANSFERRED AT 1700 TO [facility], REPORT GIVEN TO RN AT FACILITY, PATIENT EXCITED TO GO
[2025-08-27] MEDS ORDERED: Lactobacil 2-S.Thermo-Bifido 1 1 Cap PO SCH (21:00)
== END 2025-08-27 16:58 | DRG 280 ==
LOC: ER 12:18 → ERHOLD 12:19 → PCU 12:19 → MEDS 20:14 → PCU 20:14 → EDBEDREQ 20:15 → PCU 20:15 → MEDS 08-26 01:03 → EDPENDDISTM 08-27 14:40 → ENPENDDIS 08-27 14:40 → EDPENDDISDT 08-27 14:40 → MEDS 08-27 16:58
PROVIDERS: Internal Medicine; Nurse Practitioner Acute Care; Physician Assistant; ADMIT Student in an Organized Health Care Education/Training Program
PROC: B24BZZZ Ultrasonography of Heart with Aorta (ICD-10-PCS; principal; 2025-08-24)
DX: I13.0 Hypertensive heart and chronic kidney disease with heart failure and stage 1 through stage 4 chronic kidney disease, or unspecified chronic kidney disease (principal); I50.33 Acute on chronic diastolic (congestive) heart failure; I21.A1 Myocardial infarction type 2; K92.1 Melena; N18.4 Chronic kidney disease, stage 4 (severe); M48.56XA Collapsed vertebra, not elsewhere classified, lumbar region, initial encounter for fracture; Z66 Do not resuscitate; M54.50 Low back pain, unspecified; I48.91 Unspecified atrial fibrillation; D50.9 Iron deficiency anemia, unspecified; E11.22 Type 2 diabetes mellitus with diabetic chronic kidney disease; I70.1 Atherosclerosis of renal artery; Z88.2 Allergy status to sulfonamides; Z88.8 Allergy status to other drugs, medicaments and biological substances; Z91.018 Allergy to other foods; Z88.5 Allergy status to narcotic agent; Z90.49 Acquired absence of other specified parts of digestive tract; Z87.891 Personal history of nicotine dependence; Z90.710 Acquired absence of both cervix and uterus
CPT/HCPCS: 36415; 36430; 71045; 71275; 72100; 74175; 80048; 80053; 80061; 80069; 81001; 82728; 82947; 83036; 83540; 83550; 83735; 83880; 84132; 84484; 85025; 85027; 86850; 86900; 86901; 86923; 87077; 87086; 87186; 93005; 93010; 93306; 96374-59; 97110; 97116; 97161; 97165; 97530; 97535; 99285-25; A6590; A9270; J1938; J2270; J2470; J2704; J2916; J7030; J7040; P9016; Q9967